=== PATIENT | male | born 1965 | race Caucasian/White ===

== ENCOUNTER 2018-11-03 18:54 | Emergency (ER) | payer SELFPAY ==
[~2018-11-03] VITALS: Ht 172.7 cm; Wt 99.8 kg
[2018-11-03] MEDS ORDERED: LISI-556 PO (19:07)
[2018-11-03] MEDS ORDERED: CARV6.252 PO (19:07)
[2018-11-03] MEDS ORDERED: RT-ALBUTEROL/IPRATROPIUM 3 ML (DUONEB) VIAL INH ONE (19:15)
[2018-11-03 19:41] LABS: BASOPHILS # (AUTO) 0.1 10^3/uL (0.0-0.1); BASOPHILS % (AUTO) 1 % (0-10); EOSINOPHILS # (AUTO) 0.3 10^3/uL (0.0-0.3); EOSINOPHILS % (AUTO) 4 % (0-10); HEMATOCRIT 39 % (40-54); HEMOGLOBIN 12.6 G/DL (13.3-17.7); LYMPHOCYTES # (AUTO) 1.6 X 10^3 (1.0-4.0); LYMPHOCYTES % (AUTO) 19 % (12-44); MEAN CORPUSCULAR HEMOGLOBIN 30 PG (25-34); MEAN CORPUSCULAR HGB CONC 33 G/DL (32-36); MEAN CORPUSCULAR VOLUME 93 FL (80-99); MEAN PLATELET VOLUME 9.9 FL (7.4-10.4); MONOCYTES # (AUTO) 0.6 X 10^3 (0.0-1.0); MONOCYTES % (AUTO) 7 % (0-12); NEUTROPHILS # (AUTO) 5.7 X 10^3 (1.8-7.8); NEUTROPHILS % (AUTO) 69 % (42-75); PLATELET COUNT 258 10^3/uL (130-400); RED CELL DISTRIBUTION WIDTH 16.2 % (10.0-14.5); WHITE BLOOD COUNT 8.2 10^3/uL (4.3-11.0)
--- NOTE | 2018-11-03 19:45 | Diagnostic Imaging Report ---
INDICATION: Dizziness, history of pneumonia. COMPARISON: I have no previous. FINDINGS: The heart is enlarged. There is vascular congestion. There is an at least small right-sided pleural effusion as well as findings suggestive of pulmonary edema bilaterally. The overall features suggest failure pattern, correlate clinically. IMPRESSION: Radiographic findings suggest failure pattern with edema, congestion and probable pleural effusion and cardiomegaly. Dictated by: Dictated on workstation # [id number]
[2018-11-03 20:04] LABS: ALBUMIN 3.9 GM/DL (3.2-4.5); BILIRUBIN,TOTAL 1.2 MG/DL (0.1-1.0); CALCIUM 9.4 MG/DL (8.5-10.1); CREATININE SERUM 1.38 MG/DL (0.60-1.30); TOTAL PROTEIN 6.3 GM/DL (6.4-8.2)
[2018-11-03 20:14] LABS: POTASSIUM 4.1 MMOL/L (3.6-5.0)
--- NOTE | 2018-11-03 20:16 | ED General ---
General Chief Complaint: Respiratory Problems Stated Complaint: SOB Nursing Triage Note: soa/cough Nursing Sepsis Screen: No Definite Risk Source of Information: Patient Exam Limitations: No Limitations History of Present Illness Date Seen by Provider: Nov 03, 2018 Time Seen by Provider: 19:00 Initial Comments This 52-year-old gentleman presents to the emergency room with complaint of progressive dyspnea on exertion over the past month. He reports having a bout of pneumonia and fluid collection in his right lung in August requiring admission at [facility] in [place]. He was treated for pneumonia and the chest tube was eventually removed. He improved after that admission until about one month ago. He uses an albuterol inhaler which helps his breathing somewhat. He reports having intermittent fever, weakness, cough, and shakiness over the last month. He has slight lower extremity edema. He has recently moved to [facility] from [place]. He has not yet established with a primary care provider. Allergies and Home Medications Allergies Coded Allergies: No Known Drug Allergies (Unverified , 11/03/18) Home Medications Carvedilol 6.25 Mg Tablet, Unknown Dose PO BID, (Reported) Lisinopril 5 Mg Tablet, Unknown Dose PO DAILY, (Reported) Patient Home Medication List Home Medication List Reviewed: Yes Review of Systems Review of Systems Constitutional: see HPI EENTM: no symptoms reported Respiratory: see HPI Cardiovascular: see HPI Gastrointestinal: no symptoms reported Genitourinary: no symptoms reported Musculoskeletal: no symptoms reported Skin: no symptoms reported Psychiatric/Neurological: No Symptoms Reported Hematologic/Lymphatic: No Symptoms Reported Past Ivotple-Qfjppk-Ueynmr Hx Past Med/Social Hx: Reviewed and Corrections made Patient Social History Alcohol Use: Denies Use Recreational Drug Use: Yes Drug of Choice: cannibus Smoking Status: Current Everyday Smoker Type Used: Cigarettes 2nd Hand Smoke Exposure: Yes Recent Foreign Travel: No Contact w/Someone Who Travel: No Recent Infectious Disease Expo: No Recent Hopitalizations: Yes (pneumonia) Immunizations Up To Date Tetanus Booster (TDap): Unknown Seasonal Allergies Seasonal Allergies: Yes Past Medical History Surgeries: Yes (chest tube, 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) Orthopedic Respiratory: Yes Pneumonia, COPD Cardiac: Yes (cardiomegaly) Hypertension Neurological: No Genitourinary: No Gastrointestinal: No Musculoskeletal: Yes Arthritis, Chronic Back Pain Endocrine: No HEENT: No 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 oz. 99.135457bs; BMI Method:Stated General Appearance: No Apparent Distress, WD/WN, Obese HEENT: PERRL/EOMI, Normal ENT Inspection Neck: Normal Inspection Respiratory: No Accessory Muscle Use, No Respiratory Distress; No Crackles; Wheezing Cardiovascular: Regular Rate, Rhythm, No Edema, No Murmur Gastrointestinal: Normal Bowel Sounds, Non Tender, Soft Extremity: Normal Inspection, Non Tender, Other (choice lower extremity edema) Neurologic/Psychiatric: Alert, Oriented x3, No Motor/Sensory Deficits, Normal Mood/Affect, box hinge and lock attacher II-XII Norm as Tested Skin: Normal Color, Warm/Dry Progress/Results/Core Measures Suspected Sepsis Recent Fever Within 48 Hours: No Infection Criteria Present: None New/Unexplained Altered Menta: No Sepsis Screen: No Definite Risk SIRS Temperature:98.5 Pulse: 96 Respiratory Rate: 18 Laboratory Tests 11/03/18 19:20: White Blood Count 8.2 Blood Pressure 176 /123 Mean: 140 Laboratory Tests 11/03/18 19:20: Creatinine 1.38H, Platelet Count 258, Total Bilirubin 1.2H Results/Orders Lab Results Laboratory Tests Test 11/03/18 19:20 11/03/18 21:38 Range/Units White Blood Count 8.2 4.3-11.0 10^3/uL Red Blood Count 4.19 L 4.35-5.85 10^6/uL Hemoglobin 12.6 L 13.3-17.7 G/DL Hematocrit 39 L 40-54 % Mean Corpuscular Volume 93 80-99 FL Mean Corpuscular Hemoglobin 30 25-34 PG Mean Corpuscular Hemoglobin Concent 33 32-36 G/DL Red Cell Distribution Width 16.2 H 10.0-14.5 % Platelet Count 258 130-400 10^3/uL Mean Platelet Volume 9.9 7.4-10.4 FL Neutrophils (%) (Auto) 69 42-75 % Lymphocytes (%) (Auto) 19 12-44 % Monocytes (%) (Auto) 7 0-12 % Eosinophils (%) (Auto) 4 0-10 % Basophils (%) (Auto) 1 0-10 % Neutrophils # (Auto) 5.7 1.8-7.8 X 10^3 Lymphocytes # (Auto) 1.6 1.0-4.0 X 10^3 Monocytes # (Auto) 0.6 0.0-1.0 X 10^3 Eosinophils # (Auto) 0.3 0.0-0.3 10^3/uL Basophils # (Auto) 0.1 0.0-0.1 10^3/uL D-Dimer 1.71 H 0.00-0.49 UG/ML Sodium Level 142 135-145 MMOL/L Potassium Level 4.1 3.6-5.0 MMOL/L Chloride Level 108 H 98-107 MMOL/L Carbon Dioxide Level 23 21-32 MMOL/L Anion Gap 11 5-14 MMOL/L Blood Urea Nitrogen 18 7-18 MG/DL Creatinine 1.38 H 0.60-1.30 MG/DL Estimat Glomerular Filtration Rate 55 BUN/Creatinine Ratio 13 Glucose Level 130 H 70-105 MG/DL Calcium Level 9.4 8.5-10.1 MG/DL Corrected Calcium 9.5 8.5-10.1 MG/DL Total Bilirubin 1.2 H 0.1-1.0 MG/DL Aspartate Amino Transf (AST/SGOT) 16 5-34 U/L Alanine Aminotransferase (ALT/SGPT) 34 0-55 U/L Alkaline Phosphatase 70 40-136 U/L Troponin I 0.052 H 0.034 H <0.028 NG/ML C-Reactive Protein High Sensitivity 2.72 H 0.00-0.50 MG/DL B-Type Natriuretic Peptide 34.1 <100.0 PG/ML Total Protein 6.3 L 6.4-8.2 GM/DL Albumin 3.9 3.2-4.5 GM/DL My Orders Orders - ELIANA QUEZADA MD BNP (11/03/18 19:10) Cbc With Automated Diff (11/03/18 19:10) Comprehensive Metabolic Panel (11/03/18 19:10) Hs C Reactive Protein (11/03/18 19:10) Chest Pa/Lat (2 View) (11/03/18 19:10) Albuterol/Ipra Inhalation Soln (Duoneb I (11/03/18 19:15) Svn Small Volume Nebulizer (11/03/18 19:10) Ekg Tracing (11/03/18 19:10) Troponin I (11/03/18 19:10) Ed Iv/Invasive Line Start (11/03/18 19:15) Fibrin Degradation Products (11/03/18 20:31) Ct Angio Chest W (11/03/18 21:33) Troponin I (11/03/18 21:35) Iohexol Injection (Omnipaque 350 Mg/Ml 1 (11/03/18 22:00) Received Contrast (Hold Metformin- Contr (11/03/18 22:00) Ns (Ivpb) (Sodium Chloride 0.9% Ivpb Bag (11/03/18 22:00) Medications Given in ED Current Medications Medications Dose Ordered Sig/Alejo Route Start Time Stop Time Status Last Admin Dose Admin Albuterol/ Ipratropium 3 ml ONCE ONCE INH 11/03/18 19:15 11/03/18 19:16 DC 11/03/18 19:20 3 ML Iohexol 150 ml ONCE ONCE IV 11/03/18 22:00 11/03/18 22:01 DC 11/03/18 21:48 125 ML Sodium Chloride 100 ml ONCE ONCE IV 11/03/18 22:00 11/03/18 22:01 DC 11/03/18 21:49 80 ML Vital Signs/I&O 11/03/18 11/03/18 11/03/18 18:57 19:19 22:51 Temp 98.5 98.1 Pulse 96 89 Resp 18 16 B/P (MAP) 176/123 (140) 167/113 (131) Pulse Ox 97 95 93 O2 Delivery Room Air Room Air Room Air Capillary Refill : Less Than 3 Seconds Blood Pressure Mean: 140 Progress Note : Progress Note DuoNeb treatment improved his wheezing. Pulmonary congestion/edema was suggested on the chest x-ray. However, this did not correlate with labs. I discussed the case with Dr. Walker. Given the patient's history of cancer and fluid collection in the right lung, he recommends CT abdomen and consideration for admission to have bronchoscopy and further workup. CT of the chest was obtained. This was done with angiography as patient had an elevated d-dimer. CT was abnormal and suggested edema. Again, this does not correlate with labs. I believe further consultation is needed with pulmonology. I discussed admission with Dr. Nath. Since vital signs are not unstable, she was reluct ant to admit and advised outpatient follow-up. Patient was given contact information for Dr. Walker and Dr. Vanegas to follow-up. A copy of this note will be sent to their offices. Troponin was measurable but below the critical cut off. A repeat troponin was performed and a declining value was noted. Patient denied any chest pain at any time. ECG Initial ECG Impression Date: Nov 03, 2018 Initial ECG Impression Time: 19:18 Initial ECG Rate: 88 Initial ECG Rhythm: Normal Sinus Comment Sinus rhythm with no ST elevation or depression. Nonspecific T-wave changes. There was first-degree AV block. No abnormal intervals or axis deviation. Diagnostic Imaging Diagonstic Imaging: Xray Plain Films/CT/US/NM/MRI: chest Comments Chest x-ray viewed by me and report reviewed. See report below: NAME: Eliu GRAY [facility] REC#: [id number] PT STATUS: REG ER : 1965 PHYSICIAN: ELIANA QUEZADA MD ADMIT DATE: 11/03/18/ER Signed Date of Exam:11/03/18 CHEST PA/LAT (2 VIEW) INDICATION: Dizziness, history of pneumonia. COMPARISON: I have no previous. FINDINGS: The heart is enlarged. There is vascular congestion. There is an at least small right-sided pleural effusion as well as findings suggestive of pulmonary edema bilaterally. The overall features suggest failure pattern, correlate clinically. IMPRESSION: Radiographic findings suggest failure pattern with edema, congestion and probable pleural effusion and cardiomegaly. Dictated by: Dictated on workstation # [id number] Dict: 11/03/181938 Trans: 11/03/181947 [id number] Interpreted by: STERLING SÁNCHEZ Electronically signed by: STERLING SÁNCHEZ 11/03/181947 Diagonstic Imaging: CT Plain Films/CT/US/NM/MRI: chest Comments CT chest viewed by me and [facility] report reviewed. CT was negative for PE. Findings were consistent with mild congestive failure and pulmonary edema. There was intermittent mediastinal and hilar lymphadenopathy. Bilateral partially loculated pleural effusion was greater on the right than left. Departure Impression Primary Impression: Dyspnea on exertion Additional Impressions: COPD (chronic obstructive pulmonary disease) Qualified Codes: J44.9 - Chronic obstructive pulmonary disease, unspecified Abnormal CT scan, chest Hypertension Qualified Codes: I10 - Essential (primary) hypertension Disposition: HOME, SELF-CARE Condition: Improved Departure-Patient Inst. Decision time for Depature: 22:43 Referrals: OMA VANEGAS RICHARD A DO MARJI, BASHAR J MD NO,LOCAL PHYSICIAN (PCP) Primary Care Physician Patient Instructions: COPD Including Emphysema (DC), High Blood Pressure in Adults Add. Discharge Instructions: Work toward quitting smoking. You may use nicotine replacement such as patches, lozenges, or gum. Do not use any vaping products. Follow-up with Romina Barrientos, and Dr. Mast as soon as possible. Please call their offices tomorrow to arrange follow-up. You may double your lisinopril to help control your blood pressure if it remains high. Drink plenty of clear liquids. Return to the ER if you have worsening symptoms. Obtain medical records from [facility] or have them faxed to your follow-up providers. Please do so soon as possible to help facilitate your care in [place]. Continue to use your albuterol inhaler as prescribed for shortness of breath and wheezing. All discharge instructions reviewed with patient and/or family. Voiced understanding. Copy Copies To 1: OMA VANEGAS DO Copies To 2: THEODORE WALKER MD, JOSHUA T MD Nov 03, 2018 20:16
[2018-11-03] MEDS ORDERED: IOHEXOL 350 MG/ML 150 ML (OMNIPAQUE 350) VIAL IV ONE (22:00)
[2018-11-03] MEDS ORDERED: NS 100 ML (IVPB) BAG IV ONE (22:00)
[2018-11-03] MEDS ORDERED: HOLD METFORMIN - RECEIVED CONTRAST 20 ML VIAL IV SCH (22:00)
[2018-11-03 22:51] VITALS: BP 167/113
--- NOTE | 2018-11-04 06:48 | Diagnostic Imaging Report ---
PROCEDURE: CT angiography of the chest with contrast. TECHNIQUE: Multiple contiguous axial images were obtained through the chest after uneventful bolus administration of intravenous contrast. 2D reconstructed CTA MIP acquisitions were also performed. Auto Exposure Controls were utilized during the CT exam to meet ALARA standards for radiation dose reduction. INDICATION: Worsening shortness breath over 3 weeks There is right pleural thickening. There is bilateral hilar lymphadenopathy. There is some adenopathy in the AP window of the mediastinum. There are no pulmonary emboli. Aorta is unremarkable. There is minimal basilar infiltrate or edema. IMPRESSION: There is no evidence for pulmonary embolism. There is abnormal thickening of the pleura on the right which is partially due to an effusion but pathologic thickening of the pleura cannot be excluded. There's also some hilar and mediastinal lymphadenopathy. I agree with preliminary interpretation. Dictated by: Dictated on workstation # [id number]
== END 2018-11-03 22:54 | disposition home or self-care (01) ==
LOC: EDUNIT# 18:54 → ER 18:55
DX: J44.9 Chronic obstructive pulmonary disease, unspecified (principal); I10 Essential (primary) hypertension; R91.8 Other nonspecific abnormal finding of lung field; F41.9 Anxiety disorder, unspecified; F43.10 Post-traumatic stress disorder, unspecified; I51.7 Cardiomegaly; F12.10 Cannabis abuse, uncomplicated; F17.210 Nicotine dependence, cigarettes, uncomplicated; Z87.01 Personal history of pneumonia (recurrent); Z85.819 Personal history of malignant neoplasm of unspecified site of lip, oral cavity, and pharynx
CPT/HCPCS: 36415; 71046; 71275; 80053; 83880; 84484; 85025; 85379; 86141; 93005; 94640

== ENCOUNTER 2018-11-15 11:50 | Emergency (ER) | payer SELFPAY ==
[~2018-11-15] VITALS: Ht 172.7 cm; Wt 113.4 kg
[~2018-11-15 11:50] MED LIST: CARV6.252 PO; LISI-556 PO
--- NOTE | 2018-11-15 12:15 | NUR ---
to rm at 1208
--- OUTSIDE RECORDS SUMMARY | 2018-11-15 12:49 | XMS REPORT | Continuity of Care Document ---
Author Organization Unknown Address Unknown Allergies There is no data. Medications There is no data. Problems There is no data. Procedures There is no data. Results There is no data. Encounters ACCT No. Visit Date/Time Discharge Status Pt. Type Provider Facility Loc./Unit Complaint [id number] 11/09/2018 12:20:00 11/09/2018 23:59:59 CLS Outpatient [facility]
--- NOTE | 2018-11-15 12:55 | ED Respiratory ---
General Chief Complaint: Respiratory Problems Stated Complaint: SOA Nursing Triage Note: PT HAS HISTORY OF CHF AND COPD. PT IS NON COMPLIANT WITH MEDICATIONS. PT SMOKES DAILY. PT IS TO SEE HIS PCP ON THURSDAY. PT HAS NOT BEEN ON LASIX OR HIGH BLOOD PRESSURE MEDICATION. PT STATES HE ALSO USES WEED, HE HAD AN EDIBLE 4 DAYS AGO. RESPIRATIONS EVEN AND LABORED. PT 97% ON ROOM AIR AND IS ABLE TO TALK IN FULL COMPLETE SENTANCES WITHOUT DIFFICULTY. PT STATES BILATERAL LEG SWELLING. History of Present Illness Date Seen by Provider: Nov 15, 2018 Time Seen by Provider: 12:40 Initial Comments 52-year-old male presents for swelling bilateral lower extremities. He states that he has been sitting with his legs dangling for several hours. He also has not been taking his lisinopril with HCTZ. He did get a new prescription is to pick it up at [facility] after this visit. Eyes any shortness of air, change in his productive cough, chest pain or dyspnea. He states that he is noncompliant with his treatment but he is trying to do better. He is scheduled to see his PCP in 2 days. Timing/Duration: this morning Prior Episodes/Possible Cause: frequent episodes Associated Symptoms: No chest pain/soreness; cough (no change in chronic,); No fever/chills, No headache, No lightheadedness, No muscle aches, No nasal congestion, No nasal drainage, No shortness of breath, No sinus infection, No sore throat, No wheezing Allergies and Home Medications Allergies Coded Allergies: No Known Drug Allergies (Unverified , 11/03/18) Home Medications Carvedilol 6.25 Mg Tablet, Unknown Dose PO BID, (Reported) Lisinopril 5 Mg Tablet, Unknown Dose PO DAILY, (Reported) Patient Home Medication List Home Medication List Reviewed: Yes Review of Systems Review of Systems Constitutional: no symptoms reported, see HPI Skin: see HPI, other (swelling bilateral lower extremities, without calf or leg pain. No reported injuries) All Other Systems Reviewed Negative Unless Noted: Yes Past Nkmuzpq-Ebbhad-Rhcagc Hx Past Med/Social Hx: Reviewed Nursing Past Med/Soc Hx Patient Social History Alcohol Use: Denies Use Recreational Drug Use: Yes Drug of Choice: cannibus Smoking Status: Current Everyday Smoker Type Used: Cigarettes 2nd Hand Smoke Exposure: Yes Recent Foreign Travel: No Contact w/Someone Who Travel: No Recent Infectious Disease Expo: No Recent Hopitalizations: Yes (pneumonia 08/2018) Immunizations Up To Date Tetanus Booster (TDap): Unknown Seasonal Allergies Seasonal Allergies: Yes Past Medical History Surgeries: Yes (chest tube, 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) Orthopedic Respiratory: Yes Pneumonia, COPD Cardiac: Yes (cardiomegaly) Hypertension Neurological: No Genitourinary: No Gastrointestinal: No Musculoskeletal: Yes Arthritis, Chronic Back Pain Endocrine: No HEENT: No 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 oz. 113.267479wt; BMI Method:Stated General Appearance: WD/WN, no apparent distress HEENT: PERRL/EOMI, normal ENT inspection, TMs normal, pharynx normal Neck: non-tender, full range of motion, supple, normal inspection Respiratory: chest non-tender, lungs clear, normal breath sounds, no respiratory distress; No wheezing Cardiovascular: normal peripheral pulses, regular rate, rhythm, no murmur Gastrointestinal: normal bowel sounds, non tender, soft Extremities: normal range of motion, non-tender, normal capillary refill, pedal edema (2+); No slow capillary refill; other Neurologic/Psychiatric: no motor/sensory deficits, alert, normal mood/affect, oriented x 3 Skin: normal color, warm/dry Lymphatic: no adenopathy Progress/Results/Core Measures Suspected Sepsis Recent Fever Within 48 Hours: No Infection Criteria Present: None New/Unexplained Altered Menta: No Sepsis Screen: No Definite Risk SIRS Temperature:98.2 Pulse: 102 Respiratory Rate: 18 Blood Pressure 167 /129 Mean: 142 Results/Orders My Orders Orders - LYLE DHALIWAL Furosemide Tablet (Lasix Tablet) (11/15/18 13:00) Lisinopril Tablet (Zestril Tablet) (11/15/18 13:00) Medications Given in ED Current Medications Medications Dose Ordered Sig/Alejo Route Start Time Stop Time Status Last Admin Dose Admin Furosemide 40 mg ONCE ONCE PO 11/15/18 13:00 11/15/18 13:04 DC 11/15/18 13:13 40 MG Lisinopril 20 mg ONCE ONCE PO 11/15/18 13:00 11/15/18 13:04 DC 11/15/18 13:14 20 MG Vital Signs/I&O 11/15/18 11/15/18 11:54 13:04 Temp 98.2 98.2 Pulse 102 91 Resp 18 18 B/P (MAP) 167/129 (142) 164/119 (134) Pulse Ox 98 94 O2 Delivery Room Air Room Air Capillary Refill : Less Than 3 Seconds Blood Pressure Mean: 142 Progress Note : Time: 12:40 Progress Note Patient seen and evaluated, recommended giving his lisinopril and Lasix. He is to follow-up with his PCP and obtain his prescriptions from his pharmacy. Discharge instructions and return precautions reviewed with the patient. All questions answered. Departure Impression Primary Impression: Hypertension Qualified Codes: I10 - Essential (primary) hypertension Additional Impressions: Noncompliance COPD (chronic obstructive pulmonary disease) Qualified Codes: J44.9 - Chronic obstructive pulmonary disease, unspecified Disposition: 01 HOME, SELF-CARE Condition: Improved Departure-Patient Inst. Decision time for Depature: 12:55 Referrals: NO,LOCAL PHYSICIAN (PCP/Family) Primary Care Physician Patient Instructions: High Blood Pressure (DC) Add. Discharge Instructions: Keep your scheduled appointments with your primary care provider and specialist. Take medications as ordered. Elevate your legs higher than your heart. Continue to use your inhaler every 4 hours. Return to emergency department for new, urgent health care needs. All discharge instructions reviewed with patient and/or family. Voiced understanding. Copy Copies To 1: OMA DANIEL AMY ARNP Nov 15, 2018 12:55
[2018-11-15] MEDS ORDERED: lisINopril 20 MG (PRINIVIL) TABLET PO ONE (13:00)
[2018-11-15] MEDS ORDERED: FUROSEMIDE 40 MG (LASIX) TAB PO ONE (13:00)
[2018-11-15 13:04] VITALS: BP 164/119
== END 2018-11-15 13:04 ==
LOC: EDUNIT# 11:50 → ER 11:51
DX: J44.9 Chronic obstructive pulmonary disease, unspecified (principal); I10 Essential (primary) hypertension; F41.9 Anxiety disorder, unspecified; F32.9 Major depressive disorder, single episode, unspecified; F12.10 Cannabis abuse, uncomplicated; F17.210 Nicotine dependence, cigarettes, uncomplicated; Z87.01 Personal history of pneumonia (recurrent); Z85.828 Personal history of other malignant neoplasm of skin; Z91.14 Patient's other noncompliance with medication regimen
CPT/HCPCS: 99283

== ENCOUNTER 2019-01-08 15:32 | Emergency (ER) | payer MEDICAID ==
[~2019-01-08] VITALS: Ht 172.7 cm; Wt 99.8 kg
[2019-01-08] MEDS ORDERED: fentaNYL INJECTION 100 MCG/2 ML AMP IVP ONE (16:00)
[2019-01-08] MEDS ORDERED: NS IV 1000 ML 1,000 ML IV SCH (16:00)
[2019-01-08] MEDS ORDERED: ENOXAPARIN 100 MG/1 ML (LOVENOX) SYR SC ONE (16:00)
--- NOTE | 2019-01-08 16:06 | ED Lower Extremity ---
General Chief Complaint: Lower Extremity Stated Complaint: L LEG PAIN,PURPLE,POSS BLOOD CLOT Nursing Triage Note: PT TO ED W/ C/O LLE PAIN FROM HIP TO FOOT ONSET TODAY. REPORTS CHANGE OR COLOR TO EXTREMITY, NUMBNESS ET PAIN. DENIES INJURY OR HX OF BLOOD CLOTS TO THIS RN Nursing Sepsis Screen: No Definite Risk Source: patient, family Exam Limitations: no limitations History of Present Illness Date Seen by Provider: Jan 08, 2019 Time Seen by Provider: 16:02 Initial Comments This 53-year-old white male presents with an apparent blood clot to his left leg. Patient noted aching in his left leg from his hip to his foot this morning with associated cyanosis and symptoms of claudication. Patient and his experience paresthesias in the left leg as well. Patient denies similar symptoms in the past. Patient denies shortness of breath or chest pain. Onset: this morning Severity: moderate Pain/Injury Location: left hip, left leg, left knee, left thigh, left foot, left ankle Allergies and Home Medications Allergies Coded Allergies: No Known Drug Allergies (Unverified , 11/03/18) Home Medications Carvedilol 6.25 Mg Tablet, Unknown Dose PO BID, (Reported) Lisinopril 5 Mg Tablet, Unknown Dose PO DAILY, (Reported) Patient Home Medication List Home Medication List Reviewed: Yes Review of Systems Constitutional: No chills, No fever, No weakness EENTM: No hearing loss Respiratory: No cough, No short of breath Cardiovascular: No chest pain Gastrointestinal: No abdominal pain, No melena, No nausea, No vomiting Genitourinary: no symptoms reported; No decreased output, No dysuria, No frequency Musculoskeletal: no symptoms reported; No back pain, No joint pain Skin: see HPI (cyanosis right lower extremity), change in color, other Psychiatric/Neurological: No Symptoms Reported Past Sycbjtj-Tzpaau-Whdqlc Hx Past Med/Social Hx: Reviewed Nursing Past Med/Soc Hx Patient Social History Alcohol Use: Denies Use Recreational Drug Use: Yes Drug of Choice: MARIJUANA Smoking Status: Current Everyday Smoker Type Used: Cigarettes 2nd Hand Smoke Exposure: Yes Recent Foreign Travel: No Contact w/Someone Who Travel: No Recent Infectious Disease Expo: No Recent Hopitalizations: Yes (pneumonia 08/2018) Immunizations Up To Date Tetanus Booster (TDap): Unknown Seasonal Allergies Seasonal Allergies: Yes Past Medical History Surgeries: Yes (chest tube, 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) Orthopedic Respiratory: Yes Pneumonia, COPD Cardiac: Yes (cardiomegaly) Hypertension Neurological: No Genitourinary: No Gastrointestinal: No Musculoskeletal: Yes Arthritis, Chronic Back Pain Endocrine: No HEENT: No 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 oz. 99.849435gb; BMI Method:Stated General Appearance: WD/WN, mild distress HEENT: normal ENT inspection Neck: full range of motion, normal inspection Cardiovascular: regular rate, rhythm, no murmur Respiratory: chest non-tender, lungs clear, normal breath sounds Gastrointestinal: normal bowel sounds Back: normal inspection Hips: left hip other (cyanosis is present from the left hip to the toes of the left foot. There is associated moderate soft tissue swelling.) Neurologic/Tendon: normal sensation, normal motor functions, normal tendon functions Neurologic/Psychiatric: no motor/sensory deficits, normal mood/affect Skin: cyanosis (of the entire left lower extremity.), other Progress/Results/Core Measures Results/Orders Lab Results Laboratory Tests Test 01/08/19 16:05 Range/Units White Blood Count 10.9 4.3-11.0 10^3/uL Red Blood Count 6.00 H 4.35-5.85 10^6/uL Hemoglobin 18.2 H 13.3-17.7 G/DL Hematocrit 54 40-54 % Mean Corpuscular Volume 90 80-99 FL Mean Corpuscular Hemoglobin 30 25-34 PG Mean Corpuscular Hemoglobin Concent 34 32-36 G/DL Red Cell Distribution Width 14.4 10.0-14.5 % Platelet Count 180 130-400 10^3/uL Mean Platelet Volume 10.8 H 7.4-10.4 FL Neutrophils (%) (Auto) 74 42-75 % Lymphocytes (%) (Auto) 15 12-44 % Monocytes (%) (Auto) 9 0-12 % Eosinophils (%) (Auto) 2 0-10 % Basophils (%) (Auto) 1 0-10 % Neutrophils # (Auto) 8.0 H 1.8-7.8 X 10^3 Lymphocytes # (Auto) 1.6 1.0-4.0 X 10^3 Monocytes # (Auto) 0.9 0.0-1.0 X 10^3 Eosinophils # (Auto) 0.2 0.0-0.3 10^3/uL Basophils # (Auto) 0.1 0.0-0.1 10^3/uL Sodium Level 139 135-145 MMOL/L Potassium Level 4.1 3.6-5.0 MMOL/L Chloride Level 105 98-107 MMOL/L Carbon Dioxide Level 21 21-32 MMOL/L Anion Gap 13 5-14 MMOL/L Blood Urea Nitrogen 20 H 7-18 MG/DL Creatinine 1.32 H 0.60-1.30 MG/DL Estimat Glomerular Filtration Rate 57 BUN/Creatinine Ratio 15 Glucose Level 156 H 70-105 MG/DL Calcium Level 9.6 8.5-10.1 MG/DL Corrected Calcium 9.2 8.5-10.1 MG/DL Total Bilirubin 0.7 0.1-1.0 MG/DL Aspartate Amino Transf (AST/SGOT) 21 5-34 U/L Alanine Aminotransferase (ALT/SGPT) 28 0-55 U/L Alkaline Phosphatase 68 40-136 U/L Total Protein 7.6 6.4-8.2 GM/DL Albumin 4.5 3.2-4.5 GM/DL My Orders Orders - BERENICE LIAO MD Enoxaparin Injection (Lovenox Injection) (01/08/19 16:00) Protime With Inr (01/08/19 15:59) Cbc With Automated Diff (01/08/19 15:59) Comprehensive Metabolic Panel (01/08/19 15:59) Ns Iv 1000 Ml (Sodium Chloride 0.9%) (01/08/19 16:00) Ekg Tracing (01/08/19 16:00) Chest 1 View, Ap/Pa Only (01/08/19 16:00) Fentanyl Injection (Sublimaze Injection (01/08/19 16:00) Hydromorphone Injection (Dilaudid Inject (01/08/19 16:45) Medications Given in ED Current Medications Medications Dose Ordered Sig/Alejo Route Start Time Stop Time Status Last Admin Dose Admin Enoxaparin Sodium 100 mg ONCE ONCE SC 01/08/19 16:00 01/08/19 16:01 DC 01/08/19 16:16 100 MG Fentanyl Citrate 100 mcg ONCE ONCE IVP 01/08/19 16:00 01/08/19 16:02 DC 01/08/19 16:16 100 MCG Hydromorphone HCl 1 mg ONCE ONCE IVP 01/08/19 16:45 01/08/19 16:46 DC 01/08/19 16:39 1 MG Vital Signs/I&O 01/08/19 15:35 Temp 100.0 Pulse 85 Resp 22 B/P (MAP) 120/79 (93) Pulse Ox 94 O2 Delivery Room Air Blood Pressure Mean: 93 Progress Progress Note : Time: 16:12 Progress Note There is cyanosis and swelling to the left lower extremity from the hip to the foot. Laboratory evaluation, chest x-ray, and EKG were ordered. Patient received 100 mg of Lovenox subcutaneous. The patient would like to be transferred to [facility] for his ultrasound (ultrasound unavailable at [facility] [place]). I placed a call to [facility] to discuss the patient's presentation and asked further help. Patient has a good posterior tibial pulse in his left lower extremity. I cannot find a dorsalis pedis pulse in the left or the right foot. Dr. Hall at [facility] was kind enough to accept the patient in transfer to the emergency department. 100 g of fentanyl did not provide the patient with any significant pain relief. 1 mg of Dilaudid IV was given to the patient with improvement in his pain. Departure Impression Primary Impression: Thrombophlebitis of left leg Disposition: XFER SHT-TRM HOSP Condition: Improved Transfer Time Spoke to Accepting Phy: 16:[address] Hall at [facility] (ED) Transfer Time: 16:56 Transfer Facility: [facility] Method of Transfer: EMS Departure-Patient Inst. Referrals: ELIZABETH DEGROOT (PCP/Family) Primary Care Physician BERENICE LIAO MD Jan 08, 2019 16:06
[2019-01-08 16:13] LABS: BASOPHILS # (AUTO) 0.1 10^3/uL (0.0-0.1); BASOPHILS % (AUTO) 1 % (0-10); EOSINOPHILS # (AUTO) 0.2 10^3/uL (0.0-0.3); EOSINOPHILS % (AUTO) 2 % (0-10); HEMATOCRIT 54 % (40-54); HEMOGLOBIN 18.2 G/DL (13.3-17.7); LYMPHOCYTES # (AUTO) 1.6 X 10^3 (1.0-4.0); LYMPHOCYTES % (AUTO) 15 % (12-44); MEAN CORPUSCULAR HEMOGLOBIN 30 PG (25-34); MEAN CORPUSCULAR HGB CONC 34 G/DL (32-36); MEAN CORPUSCULAR VOLUME 90 FL (80-99); MEAN PLATELET VOLUME 10.8 FL (7.4-10.4); MONOCYTES # (AUTO) 0.9 X 10^3 (0.0-1.0); MONOCYTES % (AUTO) 9 % (0-12); NEUTROPHILS % (AUTO) 74 % (42-75); PLATELET COUNT 180 10^3/uL (130-400); RED CELL DISTRIBUTION WIDTH 14.4 % (10.0-14.5); WHITE BLOOD COUNT 10.9 10^3/uL (4.3-11.0)
[2019-01-08 16:30] LABS: ALBUMIN 4.5 GM/DL (3.2-4.5); BILIRUBIN,TOTAL 0.7 MG/DL (0.1-1.0); CALCIUM 9.6 MG/DL (8.5-10.1); CREATININE SERUM 1.32 MG/DL (0.60-1.30); POTASSIUM 4.1 MMOL/L (3.6-5.0); TOTAL PROTEIN 7.6 GM/DL (6.4-8.2)
--- NOTE | 2019-01-08 16:38 | Diagnostic Imaging Report ---
INDICATION: Left leg redness, tingling. FINDINGS: The lungs are clear. The heart size measured within normal limits. There is no effusion or pneumothorax. IMPRESSION: No acute-appearing abnormality. Dictated by: Dictated on workstation # [id number]
[2019-01-08] MEDS ORDERED: HYDROmorphone 2 MG/ML VIAL (DILAUDID) IVP ONE ×2 (16:45→18:00)
[2019-01-08 16:59] LABS: INR 0.9 (0.8-1.4); PROTHROMBIN TIME PATIENT 12.9 SEC (12.2-14.7)
[2019-01-08 18:10] VITALS: BP 118/88
== END 2019-01-08 18:10 | disposition short-term general hospital (02) ==
LOC: EDUNIT# 15:32 → ER 15:34
DX: I80.3 Phlebitis and thrombophlebitis of lower extremities, unspecified (principal); I51.7 Cardiomegaly; I10 Essential (primary) hypertension; F41.9 Anxiety disorder, unspecified; F43.10 Post-traumatic stress disorder, unspecified; J44.9 Chronic obstructive pulmonary disease, unspecified; F17.210 Nicotine dependence, cigarettes, uncomplicated; Z87.01 Personal history of pneumonia (recurrent); Z85.828 Personal history of other malignant neoplasm of skin
CPT/HCPCS: 36415; 71045; 80053; 85025; 85610; 93005; 96361; 96372; 96374; 96375; 96376

== ENCOUNTER 2019-01-25 18:01 | Emergency (ER) | payer MEDICAID ==
[~2019-01-25] VITALS: Ht 172.7 cm; Wt 108.9 kg
--- NOTE | 2019-01-25 18:30 | NUR ---
CANDIDO LEG SWELLING NOTED.
[2019-01-25] MEDS ORDERED: APIX5TAB (18:31)
[2019-01-25 18:52] LABS: BASOPHILS # (AUTO) 0.1 10^3/uL (0.0-0.1); BASOPHILS % (AUTO) 1 % (0-10); EOSINOPHILS # (AUTO) 0.2 10^3/uL (0.0-0.3); EOSINOPHILS % (AUTO) 2 % (0-10); HEMATOCRIT 52 % (40-54); HEMOGLOBIN 17.7 G/DL (13.3-17.7); LYMPHOCYTES # (AUTO) 2.2 X 10^3 (1.0-4.0); LYMPHOCYTES % (AUTO) 28 % (12-44); MEAN CORPUSCULAR HEMOGLOBIN 30 PG (25-34); MEAN CORPUSCULAR HGB CONC 34 G/DL (32-36); MEAN CORPUSCULAR VOLUME 88 FL (80-99); MEAN PLATELET VOLUME 9.8 FL (7.4-10.4); MONOCYTES % (AUTO) 12 % (0-12); NEUTROPHILS # (AUTO) 4.6 X 10^3 (1.8-7.8); NEUTROPHILS % (AUTO) 57 % (42-75); PLATELET COUNT 262 10^3/uL (130-400); RED CELL DISTRIBUTION WIDTH 14.9 % (10.0-14.5)
--- NOTE | 2019-01-25 18:53 | ED Lower Extremity ---
General Chief Complaint: Lower Extremity Stated Complaint: LEFT LEG PAIN Nursing Triage Note: had leg stents placed 3 weeks ago et has had pain since but today the pain is significantly worse and it is going numb. Nursing Sepsis Screen: No Definite Risk Source: patient Exam Limitations: no limitations History of Present Illness Date Seen by Provider: Jan 25, 2019 Time Seen by Provider: 18:49 Initial Comments To ER per private vehicle with left groin pain and numbness in the leg in the region of the groin. He's had some pain since he had stents placed in the left leg 3 weeks ago, today the pain seems worse. No fevers or chills, states he's been compliant with taking his Eliquis. Stents were placed by Dr. Brandon at [facility] in [place]. Patient is not sure where they were placed in the left leg. Onset: just prior to arrival Severity: moderate Pain/Injury Location: left leg Method of Injury: fell Modifying Factors: Worse With Movement Allergies and Home Medications Allergies Coded Allergies: No Known Drug Allergies (Unverified , 11/03/18) Home Medications Carvedilol 6.25 Mg Tablet, Unknown Dose PO BID, (Reported) Lisinopril 5 Mg Tablet, Unknown Dose PO DAILY, (Reported) Patient Home Medication List Home Medication List Reviewed: Yes Review of Systems Constitutional: see HPI EENTM: see HPI Respiratory: no symptoms reported Cardiovascular: no symptoms reported Genitourinary: no symptoms reported Musculoskeletal: see HPI Skin: no symptoms reported Psychiatric/Neurological: No Symptoms Reported Past Otxifjt-Ryfrdn-Kkjcoq Hx Patient Social History Alcohol Use: Denies Use Recreational Drug Use: No Drug of Choice: MARIJUANA Smoking Status: Current Everyday Smoker Type Used: Cigarettes 2nd Hand Smoke Exposure: Yes Recent Foreign Travel: No Contact w/Someone Who Travel: No Recent Infectious Disease Expo: No Recent Hopitalizations: Yes (pneumonia 08/2018) Immunizations Up To Date Tetanus Booster (TDap): Unknown Seasonal Allergies Seasonal Allergies: Yes Past Medical History Surgeries: Yes (chest tube, 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) Orthopedic Respiratory: Yes Pneumonia, COPD Cardiac: Yes (cardiomegaly) Hypertension Neurological: No Genitourinary: No Gastrointestinal: No Musculoskeletal: Yes Arthritis, Chronic Back Pain Endocrine: No HEENT: No 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 oz. 108.288611wk; BMI Method:Stated General Appearance: WD/WN, no apparent distress HEENT: PERRL/EOMI, normal ENT inspection Respiratory: no respiratory distress, no accessory muscle use Hips: bilateral hip non-tender, bilateral hip normal inspection, bilateral hip normal range of motion Legs: bilateral leg non-tender, bilateral leg normal inspection, bilateral leg normal range of motion Knees: bilateral knee non-tender, bilateral knee normal inspection, bilateral knee normal range of motion Ankles: bilateral ankle non-tender, bilateral ankle normal inspection, bilateral ankle normal range of motion Feet: bilateral foot non-tender, bilateral foot normal inspection, bilateral foot normal range of motion Neurologic/Psychiatric: alert, normal mood/affect, oriented x 3 Skin: normal color, warm/dry Both feet/toes are warm, symmetric in both appearance and temperature. Both lower extremities are slightly erythematous at the ankles without swelling, no cyanosis, a brisk capillary refill a each great toe of 1-2seconds. I am able to palpate a dorsalis pedis pulse on the right, not on the left. However I am able to Doppler a blood flow on the left in the dorsalis pedis artery. He has no pain in the foot. He has a palpable posterior tibial pulses bilaterally. There are 2 puncture wounds healed with overlying eschar to the popliteal region of the left leg from procedure at [facility]. Progress/Results/Core Measures Results/Orders Lab Results Laboratory Tests Test 01/25/19 18:46 Range/Units White Blood Count 8.0 4.3-11.0 10^3/uL Red Blood Count 5.93 H 4.35-5.85 10^6/uL Hemoglobin 17.7 13.3-17.7 G/DL Hematocrit 52 40-54 % Mean Corpuscular Volume 88 80-99 FL Mean Corpuscular Hemoglobin 30 25-34 PG Mean Corpuscular Hemoglobin Concent 34 32-36 G/DL Red Cell Distribution Width 14.9 H 10.0-14.5 % Platelet Count 262 130-400 10^3/uL Mean Platelet Volume 9.8 7.4-10.4 FL Neutrophils (%) (Auto) 57 42-75 % Lymphocytes (%) (Auto) 28 12-44 % Monocytes (%) (Auto) 12 0-12 % Eosinophils (%) (Auto) 2 0-10 % Basophils (%) (Auto) 1 0-10 % Neutrophils # (Auto) 4.6 1.8-7.8 X 10^3 Lymphocytes # (Auto) 2.2 1.0-4.0 X 10^3 Monocytes # (Auto) 1.0 0.0-1.0 X 10^3 Eosinophils # (Auto) 0.2 0.0-0.3 10^3/uL Basophils # (Auto) 0.1 0.0-0.1 10^3/uL Sodium Level 139 135-145 MMOL/L Potassium Level 4.3 3.6-5.0 MMOL/L Chloride Level 103 98-107 MMOL/L Carbon Dioxide Level 26 21-32 MMOL/L Anion Gap 10 5-14 MMOL/L Blood Urea Nitrogen 22 H 7-18 MG/DL Creatinine 1.35 H 0.60-1.30 MG/DL Estimat Glomerular Filtration Rate 56 BUN/Creatinine Ratio 16 Glucose Level 109 H 70-105 MG/DL Calcium Level 9.8 8.5-10.1 MG/DL My Orders Orders - REGINALDO TIERNEY DENTAL CLAIMS PROCESSOR Cbc With Automated Diff (01/25/19 18:36) Basic Metabolic Panel (01/25/19 18:36) Cta Aorta W Candido Runoff W/Wo (01/25/19 18:36) Hydromorphone Injection (Dilaudid Inject (01/25/19 19:00) Ns Iv 1000 Ml (Sodium Chloride 0.9%) (01/25/19 19:15) Iohexol Injection (Omnipaque 350 Mg/Ml 1 (01/25/19 19:30) Received Contrast (Hold Metformin- Contr (01/25/19 19:30) Sodium Chloride Flush (Catheter Flush Sy (01/25/19 19:30) Ns (Ivpb) (Sodium Chloride 0.9% Ivpb Bag (01/25/19 19:30) Lactated Ringers (Lr 1000 Ml Iv Solution (01/25/19 19:30) Hydrocodone/Apap 5/325 Tablet (Lortab 5 (01/25/19 20:15) Fentanyl Injection (Sublimaze Injection (01/25/19 20:45) Medications Given in ED Current Medications Medications Dose Ordered Sig/Alejo Route Start Time Stop Time Status Last Admin Dose Admin Acetaminophen/ Hydrocodone Bitart 1 tab ONCE ONCE PO 01/25/19 20:15 01/25/19 20:16 DC 01/25/19 20:11 1 TAB Fentanyl Citrate 50 mcg ONCE ONCE IVP 01/25/19 20:45 01/25/19 20:46 01/25/19 20:39 50 MCG Hydromorphone HCl 1 mg ONCE ONCE IV 01/25/19 19:00 01/25/19 19:01 DC 01/25/19 18:52 1 MG Iohexol 150 ml ONCE ONCE IV 01/25/19 19:30 01/25/19 19:31 DC 01/25/19 19:49 150 ML Sodium Chloride 10 ml NEEDED PRN IV 01/25/19 19:30 01/25/19 19:49 10 ML Sodium Chloride 100 ml ONCE ONCE IV 01/25/19 19:30 01/25/19 19:31 DC 01/25/19 19:49 80 ML Vital Signs/I&O 01/25/19 18:11 B/P (MAP) O2 Delivery Room Air Diagnostic Imaging Diagonstic Imaging: CT Comments NAME: Eliu GRAY Estrellita SALINAS [employer] REC#: [id number] PT STATUS: REG ER : 1965 PHYSICIAN: REGINALDO TIERNEY DENTAL CLAIMS PROCESSOR ADMIT DATE: 01/25/19/ER Signed Date of Exam:01/25/19 CTA AORTA W CANDIDO RUNOFF W/WO INDICATION: Blood clots in the legs 3 weeks ago. TECHNIQUE: Images through the aorta, pelvis and lower extremities were obtained. MIP projections were made for the CT angiography. FINDINGS: The abdominal aorta is widely patent with no aneurysm. The celiac axis and SMA are widely patent as are the renal arteries. The PREMA is patent. Both iliac arteries are widely patent with no aneurysm, stenosis or dissection. The runoff study shows mild dilatation of the left common femoral artery which measures 2.3 cm. The superficial femoral arteries are widely patent bilaterally. There is aneurysmal dilatation of both popliteal arteries. The popliteal on the right measures 4 cm with a luminal diameter of 14 mm. The popliteal artery on the left measures 2.5 cm with a luminal diameter of 1.6 cm. There is mural thrombus present with no acute thrombus or dissection evident. There is poor opacification of the trifurcation vessels on the left which may be from timing of the runoff study rather than diffuse occlusive disease. The trifurcation vessels on the right are widely patent. There is an IVC filter present. 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 Popliteal arteries and the vessels proximal to this are widely patent. No thrombus is seen. There is poor visualization of the left trifurcation vessels which may be from slightly slower flow on the left than the right rather than thrombus. Dictated by: Dictated on workstation # [id number] Dict: 01/25/192024 Trans: 01/25/192035 [facility] [id number] Interpreted by: LAVELL ESCOBAR MD Electronically signed by: LAVELL ESCOBAR MD 01/25/192035 Departure Communication (Admissions) 2007-obtained records from [facility], patient was diagnosed with a deep vein thrombosis of the entire leg length common femoral vein to the per forating veins. Arterial ultrasound showed thrombus in the popliteal artery nonocclusive. This was treated with ultrasound guided left popliteal stick with insertion of she, AngioJet clot extraction and the TPA was delivered via pulse spray and TPA infusion overnight. The next day he was taken back for clot extraction. Impression Primary Impression: Left groin pain Additional Impression: recent left leg DVT Disposition: HOME, SELF-CARE Condition: Stable Departure-Patient Inst. Decision time for Depature: 20:43 Referrals: ELIZABETH DEGROOT (PCP/Family) Primary Care Physician Patient Instructions: NO INSTRUCTIONS GIVEN Add. Discharge Instructions: 1. Pain medication as directed 2. Return to ER for any bluish discoloration of the foot like he had the first time or any other concerns. You need to be reevaluated at [facility] tomorrow. If they're unable to get you an appointment, you may go to the walk-in clinic. REGINALDO TIERNEY APRN Jan 25, 2019 18:53
[2019-01-25] MEDS ORDERED: HYDROmorphone 2 MG/ML VIAL (DILAUDID) IV ONE (19:00)
[2019-01-25 19:07] LABS: CALCIUM 9.8 MG/DL (8.5-10.1); CREATININE SERUM 1.35 MG/DL (0.60-1.30); POTASSIUM 4.3 MMOL/L (3.6-5.0)
[2019-01-25] MEDS ORDERED: NS IV 1000 ML 1,000 ML IV SCH (19:15)
[2019-01-25] MEDS ORDERED: HOLD METFORMIN - RECEIVED CONTRAST 20 ML VIAL IV SCH (19:30)
[2019-01-25] MEDS ORDERED: LACTATED RINGERS 1,000 ML IV SCH (19:30)
[2019-01-25] MEDS ORDERED: NS 100 ML (IVPB) BAG IV ONE (19:30)
[2019-01-25] MEDS ORDERED: IOHEXOL 350 MG/ML 150 ML (OMNIPAQUE 350) VIAL IV ONE (19:30)
[2019-01-25] MEDS ORDERED: CATHETER FLUSH 10 ML SYR IV PRN (19:30)
[2019-01-25] MEDS ORDERED: HYDROcodone/APAP 5 MG/325 MG (LORTAB) TAB PO ONE (20:15)
--- NOTE | 2019-01-25 20:35 | Diagnostic Imaging Report ---
INDICATION: Blood clots in the legs 3 weeks ago. TECHNIQUE: Images through the aorta, pelvis and lower extremities were obtained. MIP projections were made for the CT angiography. FINDINGS: The abdominal aorta is widely patent with no aneurysm. The celiac axis and SMA are widely patent as are the renal arteries. The PREMA is patent. Both iliac arteries are widely patent with no aneurysm, stenosis or dissection. The runoff study shows mild dilatation of the left common femoral artery which measures 2.3 cm. The superficial femoral arteries are widely patent bilaterally. There is aneurysmal dilatation of both popliteal arteries. The popliteal on the right measures 4 cm with a luminal diameter of 14 mm. The popliteal artery on the left measures 2.5 cm with a luminal diameter of 1.6 cm. There is mural thrombus present with no acute thrombus or dissection evident. There is poor opacification of the trifurcation vessels on the left which may be from timing of the runoff study rather than diffuse occlusive disease. The trifurcation vessels on the right are widely patent. There is an IVC filter present. 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 Popliteal arteries and the vessels proximal to this are widely patent. No thrombus is seen. There is poor visualization of the left trifurcation vessels which may be from slightly slower flow on the left than the right rather than thrombus. Dictated by: Dictated on workstation # [id number]
[2019-01-25] MEDS ORDERED: fentaNYL INJECTION 100 MCG/2 ML AMP IVP ONE (20:45)
[2019-01-25] MEDS ORDERED: RX-OXYCODONE/APAP 5-325 MG #4 TAB PK PO PRN (20:45)
[2019-01-25 20:58] VITALS: BP 114/86
== END 2019-01-25 20:57 | disposition home or self-care (01) ==
LOC: EDUNIT# 18:01 → ER 18:02
DX: R10.32 Left lower quadrant pain (principal); I82.412 Acute embolism and thrombosis of left femoral vein; J44.9 Chronic obstructive pulmonary disease, unspecified; I10 Essential (primary) hypertension; I51.7 Cardiomegaly; F41.9 Anxiety disorder, unspecified; F43.10 Post-traumatic stress disorder, unspecified; F17.210 Nicotine dependence, cigarettes, uncomplicated; Z85.818 Personal history of malignant neoplasm of other sites of lip, oral cavity, and pharynx; Z79.01 Long term (current) use of anticoagulants; Z87.01 Personal history of pneumonia (recurrent)
CPT/HCPCS: 36415; 75635; 80048; 85025; 96361; 96374; 96375

== ENCOUNTER 2019-02-03 06:51 | Emergency (ER) | payer MEDICAID ==
[~2019-02-03] VITALS: Ht 175 cm; Wt 109.0 kg
[~2019-02-03 06:51] MED LIST changes: +APIX5TAB
--- NOTE | 2019-02-03 07:26 | NUR ---
PT STATES HAS HAD NO CHANGE IN MEDS
[2019-02-03] MEDS ORDERED: fentaNYL INJECTION 100 MCG/2 ML AMP IM ONE (08:00)
--- NOTE | 2019-02-03 09:13 | Diagnostic Imaging Report ---
PROCEDURE: US left lower extremity venous. TECHNIQUE: Multiple real-time grayscale images were obtained over the left lower extremity in various projections. Additional duplex Doppler and color Doppler images were also obtained. INDICATION: Leg pain and swelling There are no prior ultrasound examinations available for comparison. There is generally good blood flow and compressibility at all levels. There is no sign of a deep venous thrombosis. IMPRESSION: There is no evidence for a deep venous system of the left lower extremity. Dictated by: Dictated on workstation # [id number]
--- NOTE | 2019-02-03 09:15 | Diagnostic Imaging Report ---
Indication: Left leg pain. Left leg arterial Doppler study performed in the routine fashion with color flow Doppler and waveform analysis. Flow is triphasic in the common femoral artery. The left common femoral artery is aneurysmal measuring 2.2 cm. Flow is biphasic in the profunda femoris artery. The SFA was patent with triphasic flow with no significant velocity elevation. 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 The poplitea aneurysm measured about 2.7 cm in greatest diameter.. There was relatively slow flow of the distal portion of the aneurysm. The anterior vertebral artery is patent proximally but dorsalis pedis shows no flow. Posterior tibial artery is patent with normal velocity and triphasic flow. 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 There is relatively slow flow the popliteal aneurysm distally. There is no flow visualized in the dorsalis pedis. Dictated by: Dictated on workstation # [id number]
[2019-02-03] MEDS ORDERED: NS 100 ML (IVPB) BAG IV ONE (10:00)
[2019-02-03] MEDS ORDERED: CATHETER FLUSH 10 ML SYR IV PRN (10:00)
[2019-02-03] MEDS ORDERED: IOHEXOL 350 MG/ML 100 ML (OMNIPAQUE 350) VIAL IV ONE (10:00)
[2019-02-03] MEDS ORDERED: HOLD METFORMIN - RECEIVED CONTRAST 20 ML VIAL IV SCH (10:00)
[2019-02-03] MEDS ORDERED: fentaNYL INJECTION 100 MCG/2 ML AMP IVP ONE (10:15)
[2019-02-03 10:25] LABS: BASOPHILS % (AUTO) 1 % (0-10); EOSINOPHILS # (AUTO) 0.2 10^3/uL (0.0-0.3); EOSINOPHILS % (AUTO) 3 % (0-10); HEMATOCRIT 54 % (40-54); HEMOGLOBIN 17.9 G/DL (13.3-17.7); LYMPHOCYTES # (AUTO) 1.8 X 10^3 (1.0-4.0); LYMPHOCYTES % (AUTO) 27 % (12-44); MEAN CORPUSCULAR HEMOGLOBIN 29 PG (25-34); MEAN CORPUSCULAR HGB CONC 33 G/DL (32-36); MEAN CORPUSCULAR VOLUME 88 FL (80-99); MEAN PLATELET VOLUME 10.1 FL (7.4-10.4); MONOCYTES # (AUTO) 0.6 X 10^3 (0.0-1.0); MONOCYTES % (AUTO) 10 % (0-12); NEUTROPHILS % (AUTO) 60 % (42-75); PLATELET COUNT 191 10^3/uL (130-400); RED CELL DISTRIBUTION WIDTH 15.2 % (10.0-14.5); WHITE BLOOD COUNT 6.6 10^3/uL (4.3-11.0)
[2019-02-03 10:38] LABS: BUN/CREATININE RATIO 12; CALCIUM 9.6 MG/DL (8.5-10.1); CARBON DIOXIDE 24 MMOL/L (21-32); CHLORIDE 104 MMOL/L (98-107); CREATININE SERUM 1.21 MG/DL (0.60-1.30); GFR ESTIMATED > 60; GLUCOSE 91 MG/DL (70-105); POTASSIUM 4.3 MMOL/L (3.6-5.0); SODIUM 136 MMOL/L (135-145)
--- NOTE | 2019-02-03 11:38 | Diagnostic Imaging Report ---
PROCEDURE: CT pelvis with contrast. TECHNIQUE: Oral and intravenous contrast were administered with pelvic CT performed. Auto Exposure Controls were utilized during the CT exam to meet ALARA standards for radiation dose reduction. INDICATION: Left leg pain from the hip to the foot. Patient had recent left iliac vein stent placement for DVT. Multiphasic imaging through the pelvis was performed utilizing 62nd, 92nd and 122nd delays. The patient does have a left common iliac vein stent. 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 Two CTA runoff study performed on 01/25/2019. No definite thrombus is seen within the left iliac stent, proximal IVC, or visualized segments of the external iliac vein or common femoral vein. Bladder is unremarkable. Prostate is mildly enlarged. There is no free fluid in the pelvis. IMPRESSION: Left common iliac vein stent is compressed by the right common iliac artery consistent with May-Thurner. No definite thrombus is identified. Dictated by: Dictated on workstation # [id number]
[2019-02-03 11:54] VITALS: BP_SYST 134; BP_SYST 137; BP_SYST 139; BP_DIAS 106; BP_DIAS 95; BP_DIAS 99
[2019-02-03] MEDS ORDERED: PRD20T PO (12:12)
[2019-02-03] MEDS ORDERED: ACHD5005 PO (12:12)
--- NOTE | 2019-02-03 12:13 | ED General ---
General Chief Complaint: Lower Extremity Stated Complaint: PAIN IN LEFT LEG & HIP,WEAKNESS Nursing Triage Note: PT AMBULATED TO ROOM 7 W LIMP, PT CO OF L LEG PAIN FROM HIP TO FOOT RATES 10/10. STATES HAS STENT PLACEMENT RECENTLY FOR DVT IN L LEG Nursing Sepsis Screen: No Definite Risk Source of Information: Patient, Old Records Exam Limitations: No Limitations History of Present Illness Date Seen by Provider: Feb 03, 2019 Time Seen by Provider: 07:04 Initial Comments This 53-year-old gentleman presents to the emergency room with complaints of increasing pain in the left lower extremity extending from the buttocks all the way down to the foot. It is most intense around the posterior knee. He has numbness at the medial left foot. He was recently treated at [facility] for DVT in the left leg. He had a venous stent placed as part of the treatment. See transfer documents and documentation from prior ER visit for further details. Pain has escalated but swelling has had not returned. He is presently anticoagulated and denies missing any doses of his medication. 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 His primary care provider is Patrick Matos. Allergies and Home Medications Allergies Coded Allergies: No Known Drug Allergies (Unverified , 11/03/18) Home Medications Carvedilol 6.25 Mg Tablet, Unknown Dose PO BID, (Reported) Hydrocodone Bit/Acetaminophen 1 Tab Tab, 1 EACH PO Q4-6HR PRN for PAIN-MODERATE Prescribed by: ELIANA FINNEY on 02/03/19 1212 Lisinopril 5 Mg Tablet, Unknown Dose PO DAILY, (Reported) Prednisone 20 Mg Tab, 20 MG PO DAILY Prescribed by: ELIANA FINNEY on 02/03/19 1212 Patient Home Medication List Home Medication List Reviewed: Yes Review of Systems Review of Systems Constitutional: no symptoms reported EENTM: no symptoms reported Respiratory: no symptoms reported Cardiovascular: see HPI Gastrointestinal: no symptoms reported Genitourinary: no symptoms reported Musculoskeletal: no symptoms reported Skin: no symptoms reported Psychiatric/Neurological: No Symptoms Reported Hematologic/Lymphatic: No Symptoms Reported Immunological/Allergic: no symptoms reported Past Fnbtxxd-Jfcrvf-Uugiju Hx Patient Social History Alcohol Use: Denies Use Recreational Drug Use: No Drug of Choice: MARIJUANA Smoking Status: Current Everyday Smoker Type Used: Cigarettes 2nd Hand Smoke Exposure: Yes Recent Foreign Travel: No Contact w/Someone Who Travel: No Recent Infectious Disease Expo: No Recent Hopitalizations: Yes (STENT L LOWER EXT) Immunizations Up To Date Tetanus Booster (TDap): Unknown Seasonal Allergies Seasonal Allergies: Yes Past Medical History Surgeries: Yes (chest tube, 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) Orthopedic, Vascular Surgery (Stent to the left iliac vein for treatment of May-Thurner syndrome) Respiratory: Yes Pneumonia, COPD Cardiac: Yes (cardiomegaly) Deep Vein Thrombosis, Hypertension, Peripheral Vascular (May Thurner syndrome) Neurological: No Genitourinary: No Gastrointestinal: No Musculoskeletal: Yes Arthritis, Chronic Back Pain Endocrine: No HEENT: No 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 oz. 108.236305bs; 35.00 BMI Method:Stated General Appearance: No Apparent Distress, WD/WN HEENT: PERRL/EOMI, Normal ENT Inspection Neck: Normal Inspection Respiratory: Lungs Clear, Normal Breath Sounds, No Accessory Muscle Use, No Respiratory Distress Cardiovascular: Regular Rate, Rhythm, No Edema, No Murmur Gastrointestinal: Normal Bowel Sounds, Non Tender, Soft Back: Normal Inspection, No Vertebral Tenderness Extremity: Normal Inspection, Other (Mild edema of the lower extremities equal bilaterally. Absent dorsal pedal pulse on the left. Strong posterior tibialis pulse. Capillary refill less than 5 seconds in the toes bilaterally. 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 Norm as Tested Skin: Normal Color, Warm/Dry Progress/Results/Core Measures Suspected Sepsis Recent Fever Within 48 Hours: No Infection Criteria Present: None New/Unexplained Altered Menta: No Sepsis Screen: No Definite Risk SIRS Temperature: Pulse: 81 Respiratory Rate: 18 Laboratory Tests 02/03/19 10:08: White Blood Count 6.6 Blood Pressure 139 /106 Mean: 117 Laboratory Tests 02/03/19 10:08: Creatinine 1.21, Platelet Count 191 Results/Orders Lab Results Laboratory Tests Test 02/03/19 10:08 Range/Units White Blood Count 6.6 4.3-11.0 10^3/uL Red Blood Count 6.07 H 4.35-5.85 10^6/uL Hemoglobin 17.9 H 13.3-17.7 G/DL Hematocrit 54 40-54 % Mean Corpuscular Volume 88 80-99 FL Mean Corpuscular Hemoglobin 29 25-34 PG Mean Corpuscular Hemoglobin Concent 33 32-36 G/DL Red Cell Distribution Width 15.2 H 10.0-14.5 % Platelet Count 191 130-400 10^3/uL Mean Platelet Volume 10.1 7.4-10.4 FL Neutrophils (%) (Auto) 60 42-75 % Lymphocytes (%) (Auto) 27 12-44 % Monocytes (%) (Auto) 10 0-12 % Eosinophils (%) (Auto) 3 0-10 % Basophils (%) (Auto) 1 0-10 % Neutrophils # (Auto) 4.0 1.8-7.8 X 10^3 Lymphocytes # (Auto) 1.8 1.0-4.0 X 10^3 Monocytes # (Auto) 0.6 0.0-1.0 X 10^3 Eosinophils # (Auto) 0.2 0.0-0.3 10^3/uL Basophils # (Auto) 0.0 0.0-0.1 10^3/uL Sodium Level 136 135-145 MMOL/L Potassium Level 4.3 3.6-5.0 MMOL/L Chloride Level 104 98-107 MMOL/L Carbon Dioxide Level 24 21-32 MMOL/L Anion Gap 8 5-14 MMOL/L Blood Urea Nitrogen 15 7-18 MG/DL Creatinine 1.21 0.60-1.30 MG/DL Estimat Glomerular Filtration Rate > 60 BUN/Creatinine Ratio 12 Glucose Level 91 70-105 MG/DL Calcium Level 9.6 8.5-10.1 MG/DL My Orders Orders - ELIANA QUEZADA MD Us Left Low Ext Arterial 47211 (02/03/19 07:12) Us Venous Lower Ext Lt (02/03/19 07:12) Fentanyl Injection (Sublimaze Injection (02/03/19 08:00) Basic Metabolic Panel (02/03/19 09:44) Cbc With Automated Diff (02/03/19 09:44) Ed Iv/Invasive Line Start (02/03/19 09:44) Iohexol Injection (Omnipaque 350 Mg/Ml 1 (02/03/19 10:00) Di Iv Start (Assessment) .IV start (02/03/19 09:49) Received Contrast (Hold Metformin- Contr (02/03/19 10:00) Sodium Chloride Flush (Catheter Flush Sy (02/03/19 10:00) Ns (Ivpb) (Sodium Chloride 0.9% Ivpb Bag (02/03/19 10:00) Fentanyl Injection (Sublimaze Injection (02/03/19 10:15) Ct Pelvis W (02/03/19 09:44) Medications Given in ED Current Medications Medications Dose Ordered Sig/Alejo Route Start Time Stop Time Status Last Admin Dose Admin Fentanyl Citrate 50 mcg ONCE ONCE IVP 02/03/19 10:15 02/03/19 10:16 DC 02/03/19 10:41 50 MCG Iohexol 100 ml ONCE ONCE IV 02/03/19 10:00 02/03/19 10:01 DC 02/03/19 10:49 100 ML Sodium Chloride 10 ml NEEDED PRN IV 02/03/19 10:00 02/03/19 12:29 DC 02/03/19 10:49 10 ML Sodium Chloride 100 ml ONCE ONCE IV 02/03/19 10:00 02/03/19 10:01 DC 02/03/19 10:49 80 ML Vital Signs/I&O 02/03/19 02/03/19 11:54 12:29 Pulse 80 65 78 81 Resp 16 B/P (MAP) 134/95 (108) 136/98 137/99 (112) 139/106 (117) Pulse Ox 96 Capillary Refill : Less Than 3 Seconds 2 Blood Pressure Mean: 117 Progress Note : Progress Note Patient was seen and examined. Ultrasound studies of the left lower extremity were obtained. Documentation from prior visits and from his stay at [facility] were reviewed. Ultrasound results were discussed with Dr. Matias, dependency counselor on-call for Dr. Brandon. No findings today required transfer to [facility]. He did suggest evaluating the vasculature of the proximal iliac vein and IVC with either ultrasound or CT scan. After discussion with Dr. Lamar, we elected to proceed with CT scan. Labs were checked first. Patient's body habitus would make evaluation by ultrasound very difficult. CT demonstrated a stent in the left common iliac vein as an intervention to treat May Thurner syndrome. There was still compression of the vein despite stenting. Patient's pain was treated with fentanyl. Given absence of new vascular findings, I believe patient's pain is actually likely secondary to a lower back problem causing radiculopathy or sciatica. See discharge instructions. Diagnostic Imaging Diagonstic Imaging: Ultrasound Plain Films/CT/US/NM/MRI: leg Comments NAME: Eliu GRAY JR [facility] REC#: [id number] PT STATUS: REG ER : 1965 PHYSICIAN: ELIANA QUEZADA MD ADMIT DATE: 02/03/19/ER Draft Date of Exam:02/03/19 US VENOUS LOWER EXT LT PROCEDURE: US left lower extremity venous. TECHNIQUE: Multiple real-time grayscale images were obtained over the left lower extremity in various projections. Additional duplex Doppler and color Doppler images were also obtained. INDICATION: Leg pain and swelling There are no prior ultrasound examinations available for comparison. There is generally good blood flow and compressibility at all levels. There is no sign of a deep venous thrombosis. IMPRESSION: There is no evidence for deep venous system of the left lower extremity. Dictated on workstation # [id number] Dict: 02/03/19 0843 Trans: 02/03/[address] [place] [address] [id number] Interpreted by: MATT FINN MD Reviewed: Reviewed by Me Diagonstic Imaging: Ultrasound Plain Films/CT/US/NM/MRI: leg Comments NAME: Eliu GRAY JR [facility] REC#: [id number] PT STATUS: DEP ER : 1965 PHYSICIAN: ELIANA QUEZADA MD ADMIT DATE: 02/03/19/ER Signed Date of Exam: 02/03/19 US LEFT LOW EXT ARTERIAL [id number] Indication: Left leg pain. Left leg arterial Doppler study performed in the routine fashion with color flow Doppler and waveform analysis. Flow is triphasic in the common femoral artery. The left common femoral artery is aneurysmal measuring 2.2 cm. Flow is biphasic in the profunda femoris artery. The SFA was patent with triphasic flow with no significant velocity elevation. 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 The poplitea aneurysm measured about 2.7 cm in greatest diameter.. There was relatively slow flow of the distal portion of the aneurysm. The anterior vertebral artery is patent proximally but dorsalis pedis shows no flow. Posterior tibial artery is patent with normal velocity and triphasic flow. 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 There is relatively slow flow the popliteal aneurysm distally. There is no flow visualized in the dorsalis pedis. Dictated by: Dictated on workstation # [id number] Dict: 02/03/19 0843 Trans: 02/03/19 1243 Interpreted by: SHLOMO BARRAZA MD Electronically signed by: SHLOMO BARRAZA MD 02/03/19 1243 Reviewed: Reviewed by Me Diagonstic Imaging: CT Plain Films/CT/US/NM/MRI: pelvis Comments CT pelvis viewed by me and report reviewed. See report below: NAME: Eliu GRAY [facility] REC#: [id number] PT STATUS: DEP ER : 1965 PHYSICIAN: ELIANA QUEZADA MD ADMIT DATE: 02/03/19/ER Signed Date of Exam: 02/03/19 CT PELVIS W PROCEDURE: CT pelvis with contrast. TECHNIQUE: Oral and intravenous contrast were administered with pelvic CT performed. Auto Exposure Controls were utilized during the CT exam to meet ALARA standards for radiation dose reduction. INDICATION: Left leg pain from the hip to the foot. Patient had recent left iliac vein stent placement for DVT. Multiphasic imaging through the pelvis was performed utilizing 62nd, 92nd and 122nd delays. The patient does have a left common iliac vein stent. 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 Two CTA runoff study performed on 01/25/2019. No definite thrombus is seen within the left iliac stent, proximal IVC, or visualized segments of the external iliac vein or common femoral vein. Bladder is unremarkable. Prostate is mildly enlarged. There is no free fluid in the pelvis. IMPRESSION: Left common iliac vein stent is compressed by the right common iliac artery consistent with May-Thurner. No definite thrombus is identified. Dictated by: Dictated on workstation # [id number] Dict: 02/03/19 1125 Trans: 02/03/19 1539 Interpreted by: ISRA LAMAR MD Electronically signed by: ISRA LAMAR MD 02/03/19 1539 Reviewed: Reviewed by Me, Discussed w/Radiologist, Reviewed/Discussed Departure Impression Primary Impression: May-Thurner syndrome Additional Impressions: Left leg pain Paresthesia of left foot Disposition: 01 HOME, SELF-CARE Condition: Improved Departure-Patient Inst. Decision time for Depature: 12:09 Referrals: [facility] [place] ([place]) Primary Care Physician ELIZABETH MATOS (Family) Primary Care Physician Patient Instructions: Radiculopathy Add. Discharge Instructions: The exact cause of your pain is uncertain. It does not appear to be related to any blood clotting. Based on the distribution in nature of your pain, seems likely this is related to a nerve impingement from your lower back or sciatic nerve. Use the prednisone steroids as prescribed and follow-up with your primary care provider for further evaluation. Less likely, pain could be caused by mass affect pressure from the aneurysms behind her knees. To help alleviate swelling and pain, elevate your left leg to the level of heart when you're at rest is much as possible. Avoid prolonged periods of time with your feet dangling or in a standing position. Continue with your medications as previously prescribed. Weight loss will likely help improve your blood flow and take pressure off of the vessels in your leg. Please work toward weight reduction. Quitting smoking is very important in reducing your vascular risk factors. Please continue working toward smoking cessation. Follow-up with Dr. Brandon and your primary care provider soon as possible. Bring your discharge papers including the imaging report to your follow-up appointments. Slightly return to care if you have worsening symptoms despite these measures. All discharge instructions reviewed with patient and/or family. Voiced understanding. Scripts Prednisone (Prednisone) 20 Mg Tab 20 MG PO DAILY, #4 TAB 0 Refills Prov: ELIANA QUEZADA MD 02/03/19 Hydrocodone Bit/Acetaminophen (Hydrocodone/Acetaminophen 5/325mg Tablet) 1 Tab Tab 1 EACH PO Q4-6HR PRN for PAIN-MODERATE MDD 10, #10 TAB Prov: ELIANA QUEZADA MD 02/03/19 Copy Copies To 1: PRISCILA JOSEPH JOSHUA T MD Feb 03, 2019 12:13
[2019-02-03 12:29] VITALS: BP 136/98
== END 2019-02-03 12:29 | disposition home or self-care (01) ==
LOC: EDUNIT# 06:51 → ER 06:54
DX: I87.1 Compression of vein (principal); M79.662 Pain in left lower leg; R20.2 Paresthesia of skin; J44.9 Chronic obstructive pulmonary disease, unspecified; I10 Essential (primary) hypertension; I73.9 Peripheral vascular disease, unspecified; F41.9 Anxiety disorder, unspecified; F43.10 Post-traumatic stress disorder, unspecified; F17.210 Nicotine dependence, cigarettes, uncomplicated; Z86.718 Personal history of other venous thrombosis and embolism; Z79.01 Long term (current) use of anticoagulants; Z85.828 Personal history of other malignant neoplasm of skin
CPT/HCPCS: 36415; 72193; 80048; 85025; 93926

== ENCOUNTER 2019-02-18 09:31 | Emergency (ER) | payer MEDICAID ==
[~2019-02-18] VITALS: Ht 172.7 cm; Wt 135.4 kg
[~2019-02-18 09:31] MED LIST changes: +ACHD5005 PO; +PRD20T PO
[2019-02-18] MEDS ORDERED: morphine INJ 10 MG/ML 1ML (SYR OR VIAL) IV STA (10:04)
[2019-02-18 10:23] LABS: BASOPHILS % (AUTO) 0 % (0-10); EOSINOPHILS # (AUTO) 0.2 10^3/uL (0.0-0.3); EOSINOPHILS % (AUTO) 2 % (0-10); HEMATOCRIT 50 % (40-54); HEMOGLOBIN 17.3 G/DL (13.3-17.7); LYMPHOCYTES # (AUTO) 1.3 X 10^3 (1.0-4.0); LYMPHOCYTES % (AUTO) 13 % (12-44); MEAN CORPUSCULAR HEMOGLOBIN 30 PG (25-34); MEAN CORPUSCULAR HGB CONC 35 G/DL (32-36); MEAN CORPUSCULAR VOLUME 88 FL (80-99); MEAN PLATELET VOLUME 10.4 FL (7.4-10.4); MONOCYTES # (AUTO) 0.6 X 10^3 (0.0-1.0); MONOCYTES % (AUTO) 6 % (0-12); NEUTROPHILS # (AUTO) 7.9 X 10^3 (1.8-7.8); NEUTROPHILS % (AUTO) 79 % (42-75); PLATELET COUNT 185 10^3/uL (130-400)
[2019-02-18 10:28] LABS: PROTHROMBIN TIME PATIENT 13.7 SEC (12.2-14.7)
[2019-02-18 10:35] LABS: ALANINE AMINOTRANSFERASE 19 U/L (0-55); ALBUMIN 4.2 GM/DL (3.2-4.5); ALKALINE PHOSPHATASE 55 U/L (40-136); BILIRUBIN,TOTAL 0.8 MG/DL (0.1-1.0); BUN/CREATININE RATIO 14; CALCIUM 9.7 MG/DL (8.5-10.1); CARBON DIOXIDE 25 MMOL/L (21-32); CHLORIDE 106 MMOL/L (98-107); CREATININE SERUM 1.23 MG/DL (0.60-1.30); GFR ESTIMATED > 60; GLUCOSE 107 MG/DL (70-105); MAGNESIUM 1.9 MG/DL (1.6-2.4); POTASSIUM 3.9 MMOL/L (3.6-5.0); SODIUM 140 MMOL/L (135-145); TOTAL PROTEIN 6.8 GM/DL (6.4-8.2)
--- NOTE | 2019-02-18 10:40 | ED Chest Pain ---
General Chief Complaint: Chest Pain Stated Complaint: CHEST PAIN;SWEATING Nursing Triage Note: Ambulatory to rm 7. Pt reports chest pain upon waking this morning that was radiating from L shoulder to R kidney. Pt reports calling PCP and was told to come to ED. 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 Pt denies chest pain at time of assessment. Pt also reports increased groin pain since having "relations" with significant other. Nursing Sepsis Screen: No Definite Risk Source: patient, family Exam Limitations: no limitations History of Present Illness Date Seen by Provider: Feb 18, 2019 Time Seen by Provider: 10:36 Initial Comments This 53-year-old white male presents with a complaint of recurrent left leg pain that was present upon awakening this morning with associated chest and back pain. The patient has had a recent episode of clotting of his left iliac and inferior vena cava for which he was hospitalized at [facility] for several days after transfer from [place]. The patient was found to have in addition aneurysms to the vasculature of his left lower extremity. The patient's pain was accompanied by diaphoresis and nausea and vomiting. The patient's chest pain has spontaneously resolved. The patient also notes that his left groin has been tender at the catheterization site for the last several days following vigorous intercourse with his . Patient denies associated fever, chills, headache, stiff neck, or photophobia. He has had no dysuria or frequency. The patient's emesis was benign. Patient continues to smoke. Allergies and Home Medications Allergies Coded Allergies: No Known Drug Allergies (Unverified , 11/03/18) Home Medications Carvedilol 6.25 Mg Tablet, Unknown Dose PO BID, (Reported) Hydrocodone Bit/Acetaminophen 1 Tab Tab, 1 EACH PO Q4-6HR PRN for PAIN-MODERATE Prescribed by: ELIANA FINNEY on 02/03/19 1212 Lisinopril 5 Mg Tablet, Unknown Dose PO DAILY, (Reported) Prednisone 20 Mg Tab, 20 MG PO DAILY Prescribed by: ELIANA FINNEY on 02/03/19 1212 Patient Home Medication List Home Medication List Reviewed: Yes Review of Systems Review of Systems Constitutional: No chills, No fever EENTM: No Blurred Vision, No Ear Pain Respiratory: Denies Cough, Denies Shortness of Air Cardiovascular: Chest Pain; Denies Palpitations Gastrointestinal: Denies Abdomen Distended, Denies Diarrhea; Nausea, Vomiting Genitourinary: No Symptoms Reported Musculoskeletal: see HPI, back pain Skin: no symptoms reported Psychiatric/Neurological: No Symptoms Reported Endocrine: No Symptoms Reported Hematologic/Lymphatic: No Symptoms Reported Past Suoiggi-Yrxmiw-Zmvyes Hx Past Med/Social Hx: Reviewed Nursing Past Med/Soc Hx Patient Social History Alcohol Use: Denies Use Recreational Drug Use: Yes Drug of Choice: medical marijuana Smoking Status: Current Everyday Smoker Type Used: Cigarettes 2nd Hand Smoke Exposure: Yes Recent Foreign Travel: No Contact w/Someone Who Travel: No Recent Infectious Disease Expo: No Recent Hopitalizations: Yes (STENT L LOWER EXT) Physical Abuse: No Sexual Abuse: No Immunizations Up To Date Tetanus Booster (TDap): Unknown Seasonal Allergies Seasonal Allergies: Yes Past Medical History Surgeries: Yes (chest tube, 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) Orthopedic, Vascular Surgery Respiratory: Yes Pneumonia, COPD Cardiac: Yes (cardiomegaly) Deep Vein Thrombosis, Hypertension, Peripheral Vascular Neurological: No Genitourinary: No Gastrointestinal: No Musculoskeletal: Yes Arthritis, Chronic Back Pain Endocrine: No HEENT: No 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 oz. 108.929952rk; 45.00 BMI Method:Stated General Appearance: No Apparent Distress, WD/WN HEENT: PERRL/EOMI, Normal ENT Inspection Neck: Full Range of Motion, Normal Inspection, Non Tender Respiratory: Lungs Clear, Normal Breath Sounds Cardiovascular: Regular Rate, Rhythm, No Murmur Gastrointestinal: Normal Bowel Sounds, Non Tender, Soft Extremity: Normal Capillary Refill, Normal Inspection Neurologic/Psychiatric: Alert, Oriented x3, No Motor/Sensory Deficits, Normal Mood/Affect Skin: Normal Color, Warm/Dry; No Rash Progress/Results/Core Measures Results/Orders Lab Results Laboratory Tests Test 02/18/19 09:44 Range/Units White Blood Count 10.0 4.3-11.0 10^3/uL Red Blood Count 5.71 4.35-5.85 10^6/uL Hemoglobin 17.3 13.3-17.7 G/DL Hematocrit 50 40-54 % Mean Corpuscular Volume 88 80-99 FL Mean Corpuscular Hemoglobin 30 25-34 PG Mean Corpuscular Hemoglobin Concent 35 32-36 G/DL Red Cell Distribution Width 15.0 H 10.0-14.5 % Platelet Count 185 130-400 10^3/uL Mean Platelet Volume 10.4 7.4-10.4 FL Neutrophils (%) (Auto) 79 H 42-75 % Lymphocytes (%) (Auto) 13 12-44 % Monocytes (%) (Auto) 6 0-12 % Eosinophils (%) (Auto) 2 0-10 % Basophils (%) (Auto) 0 0-10 % Neutrophils # (Auto) 7.9 H 1.8-7.8 X 10^3 Lymphocytes # (Auto) 1.3 1.0-4.0 X 10^3 Monocytes # (Auto) 0.6 0.0-1.0 X 10^3 Eosinophils # (Auto) 0.2 0.0-0.3 10^3/uL Basophils # (Auto) 0.0 0.0-0.1 10^3/uL Prothrombin Time 13.7 12.2-14.7 SEC INR Comment 1.0 0.8-1.4 Activated Partial Thromboplast Time 32 24-35 SEC D-Dimer 0.74 H 0.00-0.49 UG/ML Sodium Level 140 135-145 MMOL/L Potassium Level 3.9 3.6-5.0 MMOL/L Chloride Level 106 98-107 MMOL/L Carbon Dioxide Level 25 21-32 MMOL/L Anion Gap 9 5-14 MMOL/L Blood Urea Nitrogen 17 7-18 MG/DL Creatinine 1.23 0.60-1.30 MG/DL Estimat Glomerular Filtration Rate > 60 BUN/Creatinine Ratio 14 Glucose Level 107 H 70-105 MG/DL Calcium Level 9.7 8.5-10.1 MG/DL Corrected Calcium 9.5 8.5-10.1 MG/DL Magnesium Level 1.9 1.6-2.4 MG/DL Total Bilirubin 0.8 0.1-1.0 MG/DL Aspartate Amino Transf (AST/SGOT) 13 5-34 U/L Alanine Aminotransferase (ALT/SGPT) 19 0-55 U/L Alkaline Phosphatase 55 40-136 U/L Myoglobin 54.3 10.0-92.0 NG/ML Troponin I < 0.028 <0.028 NG/ML Total Protein 6.8 6.4-8.2 GM/DL Albumin 4.2 3.2-4.5 GM/DL My Orders Orders - YANNI, BERENICE Morse MD Cbc With Automated Diff (02/18/19 10:04) Magnesium (02/18/19 10:04) Chest 1 View, Ap/Pa Only (02/18/19 10:04) Ekg Tracing (02/18/19 10:04) Cardiac Profile 1 (02/18/19 10:04) Comprehensive Metabolic Panel (02/18/19 10:04) Myoglobin Serum (02/18/19 10:04) Protime With Inr (02/18/19 10:04) Partial Thromboplastin Time (02/18/19 10:04) O2 (02/18/19 10:04) Monitor-Rhythm Ecg Trace Only (02/18/19 10:04) Lipid Panel (02/19/19 06:00) Ed Iv/Invasive Line Start (02/18/19 10:04) Fibrin Degradation Products (02/18/19 10:04) Morphine Injection (Morphine Injection (02/18/19 10:04) Us Venous Lower Ext Lt (02/18/19 10:04) Ct Angio Chest W (02/18/19 10:17) Iohexol Injection (Omnipaque 350 Mg/Ml 1 (02/18/19 10:45) Received Contrast (Hold Metformin- Contr (02/18/19 10:45) Ns (Ivpb) (Sodium Chloride 0.9% Ivpb Bag (02/18/19 10:45) Ns Iv 1000 Ml (Sodium Chloride 0.9%) (02/18/19 12:00) Fentanyl Injection (Sublimaze Injection (02/18/19 12:00) Medications Given in ED Current Medications Medications Dose Ordered Sig/Alejo Route Start Time Stop Time Status Last Admin Dose Admin Iohexol 150 ml ONCE ONCE IV 02/18/19 10:45 02/18/19 10:46 DC 02/18/19 10:55 88 ML Sodium Chloride 100 ml ONCE ONCE IV 02/18/19 10:45 02/18/19 10:46 DC 02/18/19 10:55 80 ML Vital Signs/I&O 02/18/19 02/18/19 09:33 09:33 Temp 37.6 Pulse 86 Resp 15 B/P (MAP) 159/117 (131) Pulse Ox 97 O2 Delivery Room Air Room Air Blood Pressure Mean: 131 Progress Progress Note : Time: 11:56 Progress Note The patient's complete evaluation failed to demonstrate evidence of thrombophlebitis, pulmonary embolus, or myocardial infarction. Patient will follow up with Patrick Dunne at [facility] immediately for further evaluation. Departure Impression Primary Impression: Chest pain Qualified Codes: R07.9 - Chest pain, unspecified Disposition: 01 HOME, SELF-CARE Condition: Improved Departure-Patient Inst. Decision time for Depature: 12:06 Referrals: [facility] (PCP) Primary Care Physician ELIZABETH DEGROOT (Family) Primary Care Physician Patient Instructions: Chest Pain That Is Not Caused by the Heart (DC) Add. Discharge Instructions: Follow-up with on-call at [facility] for further evaluation now. Return milligrams or questions. All discharge instructions reviewed with patient and/or family. Voiced understanding. BERENICE LIAO MD Feb 18, 2019 10:40
[2019-02-18] MEDS ORDERED: NS 100 ML (IVPB) BAG IV ONE (10:45)
[2019-02-18] MEDS ORDERED: IOHEXOL 350 MG/ML 150 ML (OMNIPAQUE 350) VIAL IV ONE (10:45)
[2019-02-18] MEDS ORDERED: HOLD METFORMIN - RECEIVED CONTRAST 20 ML VIAL IV SCH (10:45)
--- NOTE | 2019-02-18 10:58 | Diagnostic Imaging Report ---
INDICATION: Left leg pain. Left leg venous Doppler study was performed in the routine fashion with color flow Doppler and waveform analysis. FINDINGS: The left common femoral vein, superficial femoral vein, popliteal vein and visualized portion of the posterior tibial vein show normal compressibility and venous flow patterns. There is normal augmentation. A left popliteal artery aneurysm is incidentally noted measuring 2.2 cm. IMPRESSION: No evidence of deep vein thrombosis of the major veins of the left leg. Left popliteal artery aneurysm noted as above. Dictated by: Dictated on workstation # [id number]
--- NOTE | 2019-02-18 10:58 | Diagnostic Imaging Report ---
PATIENT HISTORY: Chest pain. TECHNIQUE: Frontal view of the chest COMPARISON: 01/08/2019 FINDINGS: Lung volumes are normal. No focal consolidation is seen. There is no pleural effusion or pneumothorax. The cardiac silhouette is normal in size and contour. IMPRESSION: No acute pulmonary abnormality seen. Dictated by: Dictated on workstation # [id number]
--- NOTE | 2019-02-18 11:15 | Diagnostic Imaging Report ---
PROCEDURE: CT angiography of the chest with contrast. TECHNIQUE: Multiple contiguous axial images were obtained through the chest after uneventful bolus administration of intravenous contrast. 3D reconstructed CTA MIP acquisitions were also performed. Auto Exposure Controls were utilized during the CT exam to meet ALARA standards for radiation dose reduction. INDICATION: Chest pain radiating to the left shoulder as well as diaphoresis and vomiting. Correlation is made with prior CT angiogram of the chest from 11/03/2018. Evaluation of the pulmonary arterial system is without evidence of thromboembolism. No definite filling defects are seen within central, lobar or segmental branches. The thoracic aorta is normal caliber. No pericardial or pleural fluid is identified. Previously noted pleural fluid and pleural thickening in the right chest on prior CT is no longer visualized. Pulmonary parenchymal evaluation does show some minimal scarring or atelectasis right lower lobe laterally. No definite infiltrate, nodule or mass is seen. The upper abdomen is unremarkable. IMPRESSION: 1. No evidence of pulmonary embolism or thoracic aortic dissection. No acute feature is detected. Dictated by: Dictated on workstation # [id number]
--- NOTE | 2019-02-18 11:22 | NUR ---
Pt reports pain of 10/10 and states morphine "did not even put a dent in the pain." Pt is asking for additional pain medication at this time. Dr. Bautista notified.
[2019-02-18] MEDS ORDERED: NS IV 1000 ML 1,000 ML IV SCH (12:00)
[2019-02-18] MEDS ORDERED: fentaNYL INJECTION 100 MCG/2 ML AMP IVP ONE (12:00)
[2019-02-18 12:19] VITALS: BP 150/112
== END 2019-02-18 12:28 | disposition home or self-care (01) ==
LOC: EDUNIT# 09:31 → ER 09:32
DX: R07.9 Chest pain, unspecified (principal); I10 Essential (primary) hypertension; J44.9 Chronic obstructive pulmonary disease, unspecified; F43.10 Post-traumatic stress disorder, unspecified; F41.9 Anxiety disorder, unspecified; F17.210 Nicotine dependence, cigarettes, uncomplicated; Z86.718 Personal history of other venous thrombosis and embolism; Z85.828 Personal history of other malignant neoplasm of skin
CPT/HCPCS: 36415; 71045; 71275; 80053; 83735; 83874; 84484; 85025; 85379; 85610; 85730; 93005; 93041

== ENCOUNTER → 2019-06-02 | Outpatient (CLI) | payer MEDICAID ==
[2019-06-02 09:58] LABS: BASOPHILS # (AUTO) 0.1 10^3/uL (0.0-0.1); BASOPHILS % (AUTO) 1 % (0-10); EOSINOPHILS # (AUTO) 0.2 10^3/uL (0.0-0.3); EOSINOPHILS % (AUTO) 2 % (0-10); HEMATOCRIT 52 % (40-54); HEMOGLOBIN 17.9 G/DL (13.3-17.7); LYMPHOCYTES # (AUTO) 1.9 X 10^3 (1.0-4.0); LYMPHOCYTES % (AUTO) 23 % (12-44); MEAN CORPUSCULAR HEMOGLOBIN 33 PG (25-34); MEAN CORPUSCULAR HGB CONC 35 G/DL (32-36); MEAN CORPUSCULAR VOLUME 94 FL (80-99); MEAN PLATELET VOLUME 10.2 FL (7.4-10.4); MONOCYTES # (AUTO) 0.9 X 10^3 (0.0-1.0); MONOCYTES % (AUTO) 11 % (0-12); NEUTROPHILS # (AUTO) 5.3 X 10^3 (1.8-7.8); NEUTROPHILS % (AUTO) 63 % (42-75); PLATELET COUNT 186 10^3/uL (130-400); RED CELL DISTRIBUTION WIDTH 13.5 % (10.0-14.5); WHITE BLOOD COUNT 8.4 10^3/uL (4.3-11.0)
[2019-06-02 10:24] LABS: ALANINE AMINOTRANSFERASE 27 U/L (0-55); ALBUMIN 4.5 GM/DL (3.2-4.5); ALKALINE PHOSPHATASE 58 U/L (40-136); BILIRUBIN,TOTAL 0.5 MG/DL (0.1-1.0); BUN/CREATININE RATIO 18; CALCIUM 9.7 MG/DL (8.5-10.1); CARBON DIOXIDE 20 MMOL/L (21-32); CHLORIDE 106 MMOL/L (98-107); CHOLESTEROL 179 MG/DL (< 200); GFR ESTIMATED > 60; GLUCOSE 92 MG/DL (70-105); HDL CHOLESTEROL 28 MG/DL (40-60); POTASSIUM 3.9 MMOL/L (3.6-5.0); SODIUM 137 MMOL/L (135-145); TOTAL PROTEIN 7.2 GM/DL (6.4-8.2); TRIGLYCERIDES 152 MG/DL (<150); VLDL CHOLESTEROL 30 MG/DL (5-40)
== END ==
LOC: LAB 09:40
PROVIDERS: ATTEND Internal Medicine Cardiovascular Disease
DX: I70.8 Atherosclerosis of other arteries (principal); I10 Essential (primary) hypertension; I42.0 Dilated cardiomyopathy; Z86.718 Personal history of other venous thrombosis and embolism; Z72.0 Tobacco use
CPT/HCPCS: 36415; 80053; 80061; 83735; 85025

== ENCOUNTER → 2019-06-07 | Outpatient (CLI) | payer MEDICAID ==
[~2019-06-07] VITALS: Ht 172 cm; Wt 109.0 kg
[~2019-06-07] MED LIST changes: -APIX5TAB; +APIX5TAB PO; +ASPI-586 PO; +CARV12.53 PO; +CATHETER FLUSH 10 ML SYR IV PRN; +LISI1TAB26 PO; +LORA-404 PO; +REGADENOSON 0.4 MG/5 ML SYR (LEXISCAN) IV ONE; +RT-ALBUINH IH; +TRM50T PO
[2019-06-07 13:34] VITALS: BP 142/93
--- NOTE | 2019-06-09 20:33 | STRESS TEST ---
DATE OF SERVICE: 06/07/2019 RESTING AND POST REGADENOSON TECHNETIUM-99M TETROFOSMIN SPECT CT IMAGING ORDERING PHYSICIAN: Dr. Garcia. PRIMARY PHYSICIAN: Justus Mast DO. OTHER PHYSICIAN: Capo Matos APRN. CLINICAL DIAGNOSES: Hypertension, peripheral arterial disease, dilated cardiomyopathy. Baseline images were carried out after injection of 10.02 mCi of technetium-99m Tetrofosmin. This was followed by 0.4 mg regadenoson and 28.1 mCi of technetium-99m Tetrofosmin for stress imaging. The electrocardiogram showed sinus rhythm at baseline. There was nonspecific ST abnormality. The electrocardiogram did not change significantly with regadenoson infusion. Review of images at rest and following stress indicate a small transient apical perfusion defect. Gated images show global left ventricular systolic function at the lower limit of normal. There is no distinct regional wall motion abnormality. Left ventricular end diastolic volume is 111 mL. TID is absent (1). Left ventricular ejection fraction is calculated to be 50%. CONCLUSIONS: 1. This study suggests a small amount of apical ischemia. 2. Global left ventricular systolic function at the lower limit of normal with an ejection fraction of 50%. 3. Mild cardiomegaly. 4. No regional wall motion abnormalities seen on this study. Job ID: [id number] DocumentID: [id number] Dictated Date: 06/09/2019 17:02:22 Cat Sitter Date: 06/09/2019 20:33:17 Dictated By: LINO GARCIA MD, MA, FACP, FACC,
== END ==
LOC: CARD 12:18
PROVIDERS: ATTEND Internal Medicine Cardiovascular Disease
DX: I11.9 Hypertensive heart disease without heart failure (principal); I42.0 Dilated cardiomyopathy; I73.9 Peripheral vascular disease, unspecified; R07.9 Chest pain, unspecified; Z86.718 Personal history of other venous thrombosis and embolism
CPT/HCPCS: 78452; 93017

== ENCOUNTER → 2019-06-09 | Outpatient (CLI) | payer MEDICAID ==
[~2019-06-09] MED LIST changes: -CATHETER FLUSH 10 ML SYR IV PRN; -REGADENOSON 0.4 MG/5 ML SYR (LEXISCAN) IV ONE
== END ==
LOC: CARD 13:39
PROVIDERS: ATTEND Internal Medicine Cardiovascular Disease
DX: I42.0 Dilated cardiomyopathy (principal); I11.9 Hypertensive heart disease without heart failure; I73.9 Peripheral vascular disease, unspecified; Z86.718 Personal history of other venous thrombosis and embolism; I35.1 Nonrheumatic aortic (valve) insufficiency
CPT/HCPCS: 93306

== ENCOUNTER 2019-06-16 09:15 | Outpatient (CLI) | payer MEDICAID ==
[~2019-06-16] VITALS: Ht 172.7 cm; Wt 104.5 kg
[~2019-06-16 09:15] MED LIST changes: -ASPI-586 PO; -CARV12.53 PO; -LISI1TAB26 PO; -LORA-404 PO; -RT-ALBUINH IH; -TRM50T PO
[2019-06-16] MEDS ORDERED: RT-ALBUINH IH (10:34)
[2019-06-16] MEDS ORDERED: ASPI-586 PO (10:34)
[2019-06-16] MEDS ORDERED: LORA-404 PO (10:34)
[2019-06-16] MEDS ORDERED: TRM50T PO (10:34)
[2019-06-16] MEDS ORDERED: CARV12.53 PO (10:34)
[2019-06-16] MEDS ORDERED: LISI1TAB26 PO (10:34)
== END 2019-06-16 10:39 | disposition home or self-care (01) ==
LOC: PREOP 09:15
PROVIDERS: ATTEND Specialist
DX: Z01.818 Encounter for other preprocedural examination (principal)

== ENCOUNTER 2019-06-17 06:54 | Day surgery (SDC) | payer MEDICAID ==
[~2019-06-17] VITALS: Ht 172.2 cm; Wt 104.5 kg
[~2019-06-17 06:54] MED LIST changes: +ASPI-586 PO; +CARV12.53 PO; +LISI1TAB26 PO; +LORA-404 PO; +RT-ALBUINH IH; +TRM50T PO
[2019-06-17 07:00] VITALS: BP 133/89
[2019-06-17] MEDS ORDERED: LIDOCAINE PF 1% 2 ML VIAL IR PRN (07:15)
[2019-06-17] MEDS ORDERED: TIMOLOL MALEATE 0.5% 5 ML (TIMOPTIC) BTL OU PRN (07:15)
[2019-06-17] MEDS ORDERED: POVIDONE (BETADINE) OPHTH SOLN 5% 30 ML OP ONE (07:15)
[2019-06-17] MEDS ORDERED: MOXIFLOXACIN OPHTH SOLN 5 MG/ML 0.3 ML SYRINGE OP ONE (07:15)
[2019-06-17] MEDS: TETRACAINE 0.5% OPHTH SOLN 4 ML BTL (SINGLE DOSE ONLY) OU PRN ×4 (07:16→07:58)
[2019-06-17] MEDS: PHENYLEPHRINE 10% OPHTH (NEO-SYN) 5 ML BTL OU SCH ×3 (07:31→07:58)
[2019-06-17] MEDS: CYCLOPENTOLATE 1% (CYCLOGYL) 2 ML DROPS OP SCH ×3 (07:32→07:58)
[2019-06-17] MEDS ORDERED: MIDAZOLAM 2 MG/2 ML (VERSED) VIAL ONE (08:16)
[2019-06-17] MEDS ORDERED: acetaZOLAMIDE ER 500 MG CAP (DIAMOX SEQUELS) PO ONE (08:30)
--- NOTE | 2019-06-17 08:33 | Ophthalmologist Pre-Op Note ---
Pre-Operative Progress Note H&P Reviewed The H&P was reviewed, patient examined and no changes noted. Date H&P Reviewed: Jun 17, 2019 Time H&P Reviewed: 08:32 Pre-Op Dx Cataract, Left Eye MARY ALICE BRANDON MD Jun 17, 2019 08:32
--- NOTE | 2019-06-17 08:54 | Ophthalmology Operative Report ---
Cataract removal/placement IOL PREOPERATIVE DIAGNOSIS: Cataract Left Eye POSTOPERATIVE DIAGNOSIS: Cataract Left Eye PROCEDURE: Cataract removal and placement of posterior chamber implant, left eye SURGEON: Jim Brandon ANESTHESIA: Topical with sedation COMPLICATIONS: None ESTIMATED BLOOD LOSS: Minimal DESCRIPTION OF PROCEDURE: After proper informed consent was obtained, the patient, a 53 male, was taken to the Operating Room and the left eye was anesthetized with tetracaine. The left eye was then prepped and draped in the usual manner. A wire lid speculum was placed. A paracentesis was made at the left hand position. Preservative free lidocaine was injected into the anterior chamber followed by viscoelastic. A clear corneal incision was made in the temporal position. A capsulorrhexis was preformed and the central nuclear and cortical material were removed. The posterior capsule was polished and an Tristen 20.5 AU00T0 was placed into the capsular bag. The residual viscoelastic was aspirated and balanced saline solution was injected into the anterior chamber. Moxifloxacin was injected into the anterior chamber. The wound was checked and found to be water tight. The patient tolerated the procedure well without complications. JIM BRANDON MD Jun 17, 2019 08:54
[2019-06-17 09:05] VITALS: BP 123/91
--- NOTE | 2019-06-17 14:14 | Anesthesia-General Post-Op ---
MAC Patient Condition Mental Status/LOC: Same as Preop Cardiovascular: Satisfactory Nausea/Vomiting: Absent Respiratory: Satisfactory Pain: Controlled Complications: Absent Post Op Complications Complications None Follow Up Care/Instructions Patient Instructions None needed. Anesthesiology Discharge Order Discharge Order Patient is doing well, no complaints, stable vital signs, no apparent adverse anesthesia problems. No complications reported per nursing. LUCA GIFFORD CRNA Jun 17, 2019 14:14
== END 2019-06-17 09:05 | disposition home or self-care (01) ==
LOC: SDC 06:54
PROVIDERS: ATTEND Specialist
DX: H25.12 Age-related nuclear cataract, left eye (principal); I10 Essential (primary) hypertension; I20.9 Angina pectoris, unspecified; J45.909 Unspecified asthma, uncomplicated; Z79.899 Other long term (current) drug therapy

== ENCOUNTER 2019-07-01 06:05 | Day surgery (SDC) | payer MEDICAID ==
[~2019-07-01] VITALS: Ht 173 cm; Wt 104.5 kg
[2019-07-01 06:05] VITALS: BP 144/140
[2019-07-01] MEDS ORDERED: TIMOLOL MALEATE 0.5% 5 ML (TIMOPTIC) BTL OU PRN (06:15)
[2019-07-01] MEDS ORDERED: POVIDONE (BETADINE) OPHTH SOLN 5% 30 ML OP ONE (06:15)
[2019-07-01] MEDS ORDERED: LIDOCAINE PF 1% 2 ML VIAL IR PRN (06:15)
[2019-07-01] MEDS ORDERED: MOXIFLOXACIN OPHTH SOLN 5 MG/ML 0.3 ML SYRINGE OP ONE (06:15)
[2019-07-01] MEDS: TETRACAINE 0.5% OPHTH SOLN 4 ML BTL (SINGLE DOSE ONLY) OU PRN ×4 (06:25→06:59)
[2019-07-01] MEDS: PHENYLEPHRINE 10% OPHTH (NEO-SYN) 5 ML BTL OU SCH ×3 (06:42→06:59)
[2019-07-01] MEDS: CYCLOPENTOLATE 1% (CYCLOGYL) 2 ML DROPS OP SCH ×3 (06:42→06:59)
--- NOTE | 2019-07-01 06:49 | Ophthalmologist Pre-Op Note ---
Pre-Operative Progress Note H&P Reviewed The H&P was reviewed, patient examined and no changes noted. Date H&P Reviewed: Jul 01, 2019 Time H&P Reviewed: 06:49 Pre-Op Dx Cataract, Right Eye MARY ALICE BRANDON MD Jul 01, 2019 06:49
[2019-07-01] MEDS ORDERED: MIDAZOLAM 2 MG/2 ML (VERSED) VIAL ONE (06:53)
--- NOTE | 2019-07-01 07:29 | Ophthalmology Operative Report ---
Cataract removal/placement IOL PREOPERATIVE DIAGNOSIS: Cataract Right Eye POSTOPERATIVE DIAGNOSIS: Cataract Right Eye PROCEDURE: Cataract removal and placement of posterior chamber implant, right eye SURGEON: Jim Brandon ANESTHESIA: Topical with sedation COMPLICATIONS: None ESTIMATED BLOOD LOSS: Minimal DESCRIPTION OF PROCEDURE: After proper informed consent was obtained, the patient, a 53 male, was taken to the Operating Room and the right eye was anesthetized with tetracaine. The right eye was then prepped and draped in the usual manner. A wire lid speculum was placed. A paracentesis was made at the left hand position. Preservative free lidocaine was injected into the anterior chamber followed by viscoelastic. A clear corneal incision was made in the temporal position. A capsulorrhexis was preformed and the central nuclear and cortical material were removed. The posterior capsule was polished and Tristen 20.5 AU00T0 IOL was placed into the capsular bag. The residual viscoelastic was aspirated and balanced saline solution was injected into the anterior chamber. Moxifloxacin was injected into the anterior chamber. The wound was checked and found to be water tight. The patient tolerated the procedure well without complications. JIM BRANDON MD Jul 01, 2019 07:29
[2019-07-01] MEDS ORDERED: acetaZOLAMIDE ER 500 MG CAP (DIAMOX SEQUELS) PO ONE (07:30)
[2019-07-01 07:40] VITALS: BP 156/101
--- NOTE | 2019-07-01 14:36 | Anesthesia-General Post-Op ---
MAC Patient Condition Mental Status/LOC: Same as Preop Cardiovascular: Satisfactory Nausea/Vomiting: Absent Respiratory: Satisfactory Pain: Controlled Complications: Absent Post Op Complications Complications None Follow Up Care/Instructions Patient Instructions None needed. Anesthesiology Discharge Order Discharge Order Patient was seen this morning after the procedure and he was doing well, no complaints, stable vital signs, no apparent adverse anesthesia problems. OLIVE BURK DO Jul 01, 2019 14:36
== END 2019-07-01 07:40 | disposition home or self-care (01) ==
LOC: SDC 06:05
PROVIDERS: ATTEND Specialist
DX: H25.11 Age-related nuclear cataract, right eye (principal); I10 Essential (primary) hypertension; J45.909 Unspecified asthma, uncomplicated; Z79.899 Other long term (current) drug therapy; Z79.82 Long term (current) use of aspirin

== ENCOUNTER 2019-08-09 12:15 | Emergency (ER) | payer MEDICAID ==
[~2019-08-09] VITALS: Ht 172 cm; Wt 113.4 kg
[2019-08-09 12:41] LABS: BASOPHILS # (AUTO) 0.1 10^3/uL (0.0-0.1); BASOPHILS % (AUTO) 0 % (0-10); EOSINOPHILS # (AUTO) 0.2 10^3/uL (0.0-0.3); EOSINOPHILS % (AUTO) 2 % (0-10); HEMATOCRIT 53 % (40-54); HEMOGLOBIN 18.4 G/DL (13.3-17.7); LYMPHOCYTES # (AUTO) 2.7 X 10^3 (1.0-4.0); LYMPHOCYTES % (AUTO) 23 % (12-44); MEAN CORPUSCULAR HEMOGLOBIN 33 PG (25-34); MEAN CORPUSCULAR HGB CONC 35 G/DL (32-36); MEAN CORPUSCULAR VOLUME 95 FL (80-99); MEAN PLATELET VOLUME 10.2 FL (7.4-10.4); MONOCYTES # (AUTO) 1.1 X 10^3 (0.0-1.0); MONOCYTES % (AUTO) 10 % (0-12); NEUTROPHILS # (AUTO) 7.7 X 10^3 (1.8-7.8); NEUTROPHILS % (AUTO) 65 % (42-75); PLATELET COUNT 233 10^3/uL (130-400); RED CELL DISTRIBUTION WIDTH 13.6 % (10.0-14.5); WHITE BLOOD COUNT 11.8 10^3/uL (4.3-11.0)
[2019-08-09 12:52] LABS: ALANINE AMINOTRANSFERASE 20 U/L (0-55); ALBUMIN 4.9 GM/DL (3.2-4.5); ALKALINE PHOSPHATASE 58 U/L (40-136); BUN/CREATININE RATIO 12; CALCIUM 9.9 MG/DL (8.5-10.1); CARBON DIOXIDE 20 MMOL/L (21-32); CHLORIDE 106 MMOL/L (98-107); GFR ESTIMATED 58; GLUCOSE 94 MG/DL (70-105); SODIUM 141 MMOL/L (135-145); TOTAL PROTEIN 7.6 GM/DL (6.4-8.2)
--- NOTE | 2019-08-09 13:06 | Diagnostic Imaging Report ---
CT ABD/PELVIS WO(KIDNEY STONE) TECHNIQUE: Unenhanced CT imaging of the abdomen and pelvis was performed. 2-D reformats are created and submitted for interpretation. Automatic exposure controls were utilized to optimize patient dose. INDICATION: Abdominal pain with elevated blood pressure. COMPARISON: 01/25/2019 FINDINGS: Evaluation of the abdominal viscera is mildly limited without contrast. Lower chest: Right lower lobe linear subsegmental atelectasis. Otherwise, lung bases are clear. Peritoneum: No free intraperitoneal air or fluid. Liver and biliary system: Unenhanced liver is normal. The gallbladder is normal. No biliary duct dilation. Spleen and Pancreas: Spleen is normal. Unenhanced pancreas is grossly normal. Adrenals: Normal. tract: Stable 4 mm nonobstructing stone in the lower pole of the left kidney. No right renal stones. No ureteral stones on either side. No solid renal mass or obstructive uropathy. Urinary bladder is partially distended without wall thickening. The prostate is normal in appearance of normal in size, unchanged. GI tract: Small sliding-type hiatal hernia is unchanged. There is mild circumferential wall thickening of distal esophagus that is stable in appearance. Stomach is partially filled with fluid and there is no wall thickening. No bowel obstruction. No pericolonic inflammatory changes. Normal appendix. Vasculature and Lymph nodes: Normal caliber aorta. Left common iliac vein stent remains mildly compressed by the right common iliac artery and is stable in appearance since prior exam. No abdominal or pelvic lymphadenopathy. Musculoskeletal: No concerning osseous lesion. IMPRESSION: 1. Stable 4 mm nonobstructing stone in the lower pole the left kidney. No obstructive uropathy or ureteral stones. 2. Small sliding hiatal hernia with mild wall thickening distal esophagus is stable in appearance since CT of 01/25/2019. This could be due to reflux esophagitis. Dictated by: Dictated on workstation # [id number]
--- NOTE | 2019-08-09 13:15 | Diagnostic Imaging Report ---
EXAMINATION: Supine abdomen at 1:02 p.m. INDICATION: Left-sided pain. FINDINGS: The CT abdomen/pelvis exam performed in conjunction with this study did note a 4 mm nonobstructive calculus in the lower pole of the left kidney. That finding is again evident. There is no other pathological calcification visualized. There is gas in both the large and small bowel in a nonspecific fashion. There is no sign of bowel obstruction. There is no mass, organomegaly, or pathological calcification evident aside from the calculus in the left kidney. The wire-mesh graft within the inferior vena cava seen on the CT abdomen/pelvis exam is again evident. The osseous structures are intact. There is a benign-appearing sclerotic focus in the left femoral neck. IMPRESSION: 1. The nonobstructive calculus within the inferior pole of the left kidney seen on the CT exam is again evident. 2. The bowel gas pattern is nonspecific. There is no acute abnormality evident. Dictated by: Dictated on workstation # [id number]
[2019-08-09 13:37] LABS: BILIRUBIN,URINE NEGATIVE (NEGATIVE); CLARITY,URINE CLEAR; COLOR,URINE YELLOW; GLUCOSE, URINE (UA) NEGATIVE (NEGATIVE); KETONES,URINE NEGATIVE (NEGATIVE); LEUKOCYTE ESTERASE ,URINE NEGATIVE (NEGATIVE); NITRITE,URINE NEGATIVE (NEGATIVE); PROTEIN,URINE 1+ (NEGATIVE)
[2019-08-09] MEDS ORDERED: ONDANSETRON 4 MG/2 ML (SDV) Z0FRAN IVP ONE (13:45)
[2019-08-09] MEDS ORDERED: NS IV 1000 ML 1,000 ML IV SCH (13:45)
[2019-08-09] MEDS ORDERED: KETOROLAC 30 MG/ML VIAL IVP ONE (13:45)
[2019-08-09 13:53] LABS: BACTERIA,URINE FEW /HPF; RBC,URINE RARE /HPF
[2019-08-09 13:56] LABS: AMPHETAMINE SCREEN, URINE NEGATIVE (NEGATIVE); BARBITURATE SCREEN URINE NEGATIVE (NEGATIVE); BENZODIAZEPINES SCREEN URINE NEGATIVE (NEGATIVE); CANNABINOID SCREEN, URINE POSITIVE (NEGATIVE); COCAINE SCREEN URINE NEGATIVE (NEGATIVE); METHADONE STAT NEGATIVE (NEGATIVE); METHAMPHETAMINE SCREEN URINE S NEGATIVE (NEGATIVE); OPIATE SCREEN URINE NEGATIVE (NEGATIVE); OXYCODONE STAT NEGATIVE (NEGATIVE); PROPOXYPHENE STAT NEGATIVE (NEGATIVE); TRICYCLIC ANTIDEPRESSANTS SCRE NEGATIVE (NEGATIVE)
--- OUTSIDE RECORDS SUMMARY | 2019-08-09 13:58 | XMS REPORT | Continuity of Care Document ---
Author Organization Unknown Address Unknown Phone Unavailable Allergies Active Description Code Type Severity Reaction Onset Reported/Identified Relationship to Patient Clinical Status Yes No Known Drug Allergies [id number] Drug Allergy Unknown N/A 11/03/2018 Medications There is no data. Problems Date Dx Coded Attending Type Code Diagnosis Diagnosed By 11/03/2018 PILAR DONATO, ELIANA aHro Ot F12.10 CANNABIS ABUSE, UNCOMPLICATED 11/03/2018 PILAR DONATO, ELIANA Haro Ot F17.210 NICOTINE DEPENDENCE, CIGARETTES, UNCOMPL 11/03/2018 ELIANA QUEZADA MD Ot F41.9 ANXIETY DISORDER, UNSPECIFIED 11/03/2018 ELIANA QUEZADA MD Ot F43.10 POST-TRAUMATIC STRESS DISORDER, UNSPECIF 11/03/2018 ELIANA QUEZADA MD Ot I10 ESSENTIAL (PRIMARY) HYPERTENSION 11/03/2018 PILAR DONATO, ELIANA Haro Ot I51.7 CARDIOMEGALY 11/03/2018 ELIANA QUEZADA MD Ot J44.9 CHRONIC OBSTRUCTIVE PULMONARY DISEASE, U 11/03/2018 PILAR DONATO, ELIANA Haro Ot R06.09 OTHER FORMS OF DYSPNEA 11/03/2018 ELIANA QUEZADA MD Ot R91.8 OTHER NONSPECIFIC ABNORMAL FINDING OF EMILY 11/03/2018 PILAR DONATO, ELIANA Haro Ot Z85.819 PRSNL HX OF WILLIE NEOPLM OF [facility] SITE LI 11/03/2018 ELIANA QUEZADA MD Ot Z87.01 PERSONAL HISTORY OF PNEUMONIA (RECURRENT 11/05/2018 ELIANA QUEZADA MD Ot F12.10 CANNABIS ABUSE, UNCOMPLICATED 11/05/2018 ELIANA QUEZADA MD Ot F17.210 NICOTINE DEPENDENCE, CIGARETTES, UNCOMPL 11/05/2018 ELIANA QUEZADA MD Ot F41.9 ANXIETY DISORDER, UNSPECIFIED 11/05/2018 PILAR DONATO, ELIANA Haro Ot F43.10 POST-TRAUMATIC STRESS DISORDER, UNSPECIF 11/05/2018 PILAR DONATO, ELIANA Haro Ot I10 ESSENTIAL (PRIMARY) HYPERTENSION 11/05/2018 PILAR DONATO, ELIANA Haro Ot I51.7 CARDIOMEGALY 11/05/2018 PILAR DONATO, ELIANA Haro Ot J44.9 CHRONIC OBSTRUCTIVE PULMONARY DISEASE, U 11/05/2018 PILAR DONATO, ELIANA Haro Ot R06.09 OTHER FORMS OF DYSPNEA 11/05/2018 ELIANA QUEZADA MD Ot R91.8 OTHER NONSPECIFIC ABNORMAL FINDING OF EMILY 11/05/2018 ELIANA UQEZADA MD Ot Z85.819 PRSNL HX OF WILLIE PRICE OF [facility] SITE LI 11/05/2018 ELIANA QUEZADA MD Ot Z87.01 PERSONAL HISTORY OF PNEUMONIA (RECURRENT 11/15/2018 ISRA, LYLE CASE MANAGER Ot F12.10 CANNABIS ABUSE, UNCOMPLICATED 11/15/2018 ISRA, LYLE CASE MANAGER Ot F17.210 NICOTINE DEPENDENCE, CIGARETTES, UNCOMPL 11/15/2018 ISRA, LYLE CASE MANAGER Ot F41.9 ANXIETY DISORDER, UNSPECIFIED 11/15/2018 ISRA, LYLE CASE MANAGER Ot F43.10 POST-TRAUMATIC STRESS DISORDER, UNSPECIF 11/15/2018 ISRA, LYLE CASE MANAGER Ot I10 ESSENTIAL (PRIMARY) HYPERTENSION 11/15/2018 ISRA, LYLE CASE MANAGER Ot J44.9 CHRONIC OBSTRUCTIVE PULMONARY DISEASE, U 11/15/2018 ISAR, LYLE CASE MANAGER Ot R06.02 SHORTNESS OF BREATH 11/15/2018 ISRA, LYLE CASE MANAGER Ot Z85.828 PERSONAL HISTORY OF OTHER MALIGNANT NEOP 11/15/2018 ISRA, LYLE CASE MANAGER Ot Z87.01 PERSONAL HISTORY OF PNEUMONIA (RECURRENT 11/15/2018 ISRA, LYLE CASE MANAGER Ot Z91.14 PATIENT'S OTHER NONCOMPLIANCE WITH MEDIC 2018 ISRA, LYLE CASE MANAGER Ot F12.10 CANNABIS ABUSE, UNCOMPLICATED 2018 ISRA, LYLE CASE MANAGER Ot F17.210 NICOTINE DEPENDENCE, CIGARETTES, UNCOMPL 2018 ISRA, LYLE CASE MANAGER Ot F32.9 MAJOR DEPRESSIVE DISORDER, SINGLE EPISOD 2018 ISRA, LYLE CASE MANAGER Ot F41.9 ANXIETY DISORDER, UNSPECIFIED 2018 ISRA, LYLE CASE MANAGER Ot I10 ESSENTIAL (PRIMARY) HYPERTENSION 2018 ISRA, LYLE CASE MANAGER Ot J44.9 CHRONIC OBSTRUCTIVE PULMONARY DISEASE, U 2018 ISRA, LYLE CASE MANAGER Ot R06.02 SHORTNESS OF BREATH 2018 ISRA, LYLE CASE MANAGER Ot Z85.828 PERSONAL HISTORY OF OTHER MALIGNANT NEOP 2018 ISRA, LYLE CASE MANAGER Ot Z87.01 PERSONAL HISTORY OF PNEUMONIA (RECURRENT 2018 ISRA, LYLE CASE MANAGER Ot Z91.14 PATIENT'S OTHER NONCOMPLIANCE WITH MEDIC 11/18/2018 ISRA, LYLE CASE MANAGER Ot F12.10 CANNABIS ABUSE, UNCOMPLICATED 11/18/2018 ISRA, LYLE CASE MANAGER Ot F17.210 NICOTINE DEPENDENCE, CIGARETTES, UNCOMPL 11/18/2018 ISRA, LYLE CASE MANAGER Ot F41.9 ANXIETY DISORDER, UNSPECIFIED 11/18/2018 ISRA, LYLE CASE MANAGER Ot F43.10 POST-TRAUMATIC STRESS DISORDER, UNSPECIF 11/18/2018 ISRA, LYLE CASE MANAGER Ot I10 ESSENTIAL (PRIMARY) HYPERTENSION 11/18/2018 ISRA, LYLE CASE MANAGER Ot J44.9 CHRONIC OBSTRUCTIVE PULMONARY DISEASE, U 11/18/2018 ISRA, LYLE CASE MANAGER Ot R06.02 SHORTNESS OF BREATH 11/18/2018 ISRA, LYLE CASE MANAGER Ot Z85.828 PERSONAL HISTORY OF OTHER MALIGNANT NEOP 11/18/2018 ISRA, LYLE CASE MANAGER Ot Z87.01 PERSONAL HISTORY OF PNEUMONIA (RECURRENT 11/18/2018 ISRA, LYLE CASE MANAGER Ot Z91.14 PATIENT'S OTHER NONCOMPLIANCE WITH MEDIC 01/08/2019 YANNI DONATO, BERENICE Morse Ot F17.210 NICOTINE DEPENDENCE, CIGARETTES, UNCOMPL 01/08/2019 YANNI DONATO, BERENICE Morse Ot F41. 9 ANXIETY DISORDER, UNSPECIFIED 01/08/2019 YANNI DONATO, BERENICE Morse Ot F43. 10 POST-TRAUMATIC STRESS DISORDER, UNSPECIF 01/08/2019 YANNI DONATO, BERENICE Morse Ot I10 ESSENTIAL (PRIMARY) HYPERTENSION 01/08/2019 YANNI DONATO, BERENICE Morse Ot I51. 7 CARDIOMEGALY 01/08/2019 YANNI DONATO, BERENICE Morse Ot I80. 3 PHLEBITIS AND THROMBOPHLEBITIS OF LOWER 01/08/2019 YANNI DONATO, BERENICE Morse Ot J44. 9 CHRONIC OBSTRUCTIVE PULMONARY DISEASE, U 01/08/2019 YANNI DONATO, BERENICE Morse Ot M79.662 PAIN IN LEFT LOWER LEG 01/08/2019 YANNI DONATO, BERENICE Morse Ot Z85.828 PERSONAL HISTORY OF OTHER MALIGNANT NEOP 01/08/2019 YANNI DONATO, BERENICE Morse Ot Z87. 01 PERSONAL HISTORY OF PNEUMONIA (RECURRENT 01/11/2019 YANNI DONATO, BERENICE Morse Ot F17.210 NICOTINE DEPENDENCE, CIGARETTES, UNCOMPL 01/11/2019 YANNI DONATO, BERENICE Morse Ot F41. 9 ANXIETY DISORDER, UNSPECIFIED 01/11/2019 BERENICE LIAO MD Ot F43. 10 POST-TRAUMATIC STRESS DISORDER, UNSPECIF 01/11/2019 BERENICE LIAO MD Ot I10 ESSENTIAL (PRIMARY) HYPERTENSION 01/11/2019 BERENICE LIAO MD Ot I51. 7 CARDIOMEGALY 01/11/2019 BERENICE LIAO MD Ot I80. 3 PHLEBITIS AND THROMBOPHLEBITIS OF LOWER 01/11/2019 BERENICE LIAO MD Ot J44. 9 CHRONIC OBSTRUCTIVE PULMONARY DISEASE, U 01/11/2019 YANNI DONATO, BERENICE Morse Ot M79.662 PAIN IN LEFT LOWER LEG 01/11/2019 YANNI DONATO, BERENICE Morse Ot Z85.828 PERSONAL HISTORY OF OTHER MALIGNANT NEOP 01/11/2019 BERENICE LIAO MD Ot Z87. 01 PERSONAL HISTORY OF PNEUMONIA (RECURRENT 01/25/2019 REGINALDO TIERNEY APRN Ot F17.210 NICOTINE DEPENDENCE, CIGARETTES, UNCOMPL 01/25/2019 REGINALDO TIERNEY APRN Ot F41 .9 ANXIETY DISORDER, UNSPECIFIED 01/25/2019 REGINALDO TIERNEY APRN Ot F43.10 POST-TRAUMATIC STRESS DISORDER, UNSPECIF 01/25/2019 REGINALDO TIERNEY APRN Ot I10 ESSENTIAL (PRIMARY) HYPERTENSION 01/25/2019 REGINALDO TIERNEY APRN Ot I51 .7 CARDIOMEGALY 01/25/2019 REGINALDO TIERNEY APRN Ot I82.412 ACUTE EMBOLISM AND THROMBOSIS OF LEFT FE 01/25/2019 REGINALDO TIERNEY APRN Ot J44 .9 CHRONIC OBSTRUCTIVE PULMONARY DISEASE, U 01/25/2019 REGINALDO TIERNEY APRN Ot R10.32 LEFT LOWER QUADRANT PAIN 01/25/2019 REGINALDO TIERNEY APRN Ot Z79.01 SKILLED NURSING (CURRENT) USE OF ANTICOAGULANT 01/25/2019 REGINALDO TIERNEY APRN Ot Z85.818 PRSNL HX OF MALIG NEOPLM OF SITE OF LIP, 01/25/2019 REGINALDO TIERNEY APRN Ot Z87.01 PERSONAL HISTORY OF PNEUMONIA (RECURRENT 02/01/2019 REGINALDO TIERNEY APRN Ot F17.210 NICOTINE DEPENDENCE, CIGARETTES, UNCOMPL 02/01/2019 REGINALDO TIERNEY APRN Ot F41 .9 ANXIETY DISORDER, UNSPECIFIED 02/01/2019 REGINALDO TIERNEY APRN Ot F43.10 POST-TRAUMATIC STRESS DISORDER, UNSPECIF 02/01/2019 REGINALDO TIERNEY APRN Ot I10 ESSENTIAL (PRIMARY) HYPERTENSION 02/01/2019 REGINALDO TIERNEY APRN Ot I51 .7 CARDIOMEGALY 02/01/2019 REGINALDO TIERNEY APRN Ot I82.412 ACUTE EMBOLISM AND THROMBOSIS OF LEFT FE 02/01/2019 REGINALDO TIERNEY APRN Ot J44 .9 CHRONIC OBSTRUCTIVE PULMONARY DISEASE, U 02/01/2019 REGINALDO TIERNEY APRN Ot R10.32 LEFT LOWER QUADRANT PAIN 02/01/2019 REGINALDO TIERNEY APRN Ot Z79.01 SKILLED NURSING (CURRENT) USE OF ANTICOAGULANT 02/01/2019 REGINALDO TIERNEY APRN Ot Z85.818 PRSNL HX OF MALIG NEOPLM OF SITE OF LIP, 02/01/2019 REGINALDO TIERNEY APRN Ot Z87.01 PERSONAL HISTORY OF PNEUMONIA (RECURRENT 02/03/2019 PILAR DONATO, ELIANA Haro Ot F17.210 NICOTINE DEPENDENCE, CIGARETTES, UNCOMPL 02/03/2019 PILAR DONATO, ELIANA Haro Ot F41.9 ANXIETY DISORDER, UNSPECIFIED 02/03/2019 ELIANA QUEZADA MD Ot F43.10 POST-TRAUMATIC STRESS DISORDER, UNSPECIF 02/03/2019 PILAR DONATO, ELIANA T Ot I10 ESSENTIAL (PRIMARY) HYPERTENSION 02/03/2019 PILAR DONATO, ELIANA Haro Ot I73.9 PERIPHERAL VASCULAR DISEASE, UNSPECIFIED 02/03/2019 PILAR DONATO, ELIANA Haro Ot I87.1 COMPRESSION OF VEIN 02/03/2019 ELIANA QUEZADA MD Ot J44.9 CHRONIC OBSTRUCTIVE PULMONARY DISEASE, U 02/03/2019 ELIANA QUEZADA MD Ot M79.662 PAIN IN LEFT LOWER LEG 02/03/2019 ELIANA QUEZADA MD Ot R20.2 PARESTHESIA OF SKIN 02/03/2019 ELIANA QUEZADA MD Ot Z79.01 SKILLED NURSING (CURRENT) USE OF ANTICOAGULANT 02/03/2019 ELIANA QUEZADA MD Ot Z85.828 PERSONAL HISTORY OF OTHER MALIGNANT NEOP 02/03/2019 ELIANA QUEZADA MD Ot Z86.718 PERSONAL HISTORY OF OTHER VENOUS THROMBO 02/07/2019 ELIANA QUEZADA MD Ot F17.210 NICOTINE DEPENDENCE, CIGARETTES, UNCOMPL 02/07/2019 ELIANA QUEZADA MD Ot F41.9 ANXIETY DISORDER, UNSPECIFIED 02/07/2019 ELIANA QUEZADA MD Ot F43.10 POST-TRAUMATIC STRESS DISORDER, UNSPECIF 02/07/2019 ELIANA QUEZADA MD Ot I10 ESSENTIAL (PRIMARY) HYPERTENSION 02/07/2019 ELIANA QUEZADA MD Ot I73.9 PERIPHERAL VASCULAR DISEASE, UNSPECIFIED 02/07/2019 ELIANA QUEZADA MD Ot I87.1 COMPRESSION OF VEIN 02/07/2019 ELIANA QUEZADA MD, Ot J44.9 CHRONIC OBSTRUCTIVE PULMONARY DISEASE, U 02/07/2019 ELIANA QUEZADA MD Ot M79.662 PAIN IN LEFT LOWER LEG 02/07/2019 ELIANA QUEZADA MD Ot R20.2 PARESTHESIA OF SKIN 02/07/2019 ELIANA QUEZADA MD Ot Z79.01 SKILLED NURSING (CURRENT) USE OF ANTICOAGULANT 02/07/2019 ELIANA QUEZADA MD Ot Z85.828 PERSONAL HISTORY OF OTHER MALIGNANT NEOP 02/07/2019 ELIANA QUEZADA MD Ot Z86.718 PERSONAL HISTORY OF OTHER VENOUS THROMBO 02/10/2019 ELIANA QUEZADA MD Ot F17.210 NICOTINE DEPENDENCE, CIGARETTES, UNCOMPL 02/10/2019 PILAR DONATO, ELIANA Haro Ot F41.9 ANXIETY DISORDER, UNSPECIFIED 02/10/2019 ELIANA QUEZADA MD Ot F43.10 POST-TRAUMATIC STRESS DISORDER, UNSPECIF 02/10/2019 ELIANA QUEZADA MD Ot I10 ESSENTIAL (PRIMARY) HYPERTENSION 02/10/2019 ELIANA QUEZADA MD Ot I73.9 PERIPHERAL VASCULAR DISEASE, UNSPECIFIED 02/10/2019 ELIANA QUEZADA MD Ot I87.1 COMPRESSION OF VEIN 02/10/2019 ELIANA QUEZADA MD Ot J44.9 CHRONIC OBSTRUCTIVE PULMONARY DISEASE, U 02/10/2019 ELIANA QUEZADA MD Ot M79.662 PAIN IN LEFT LOWER LEG 02/10/2019 ELIANA QUEZADA MD Ot R20.2 PARESTHESIA OF SKIN 02/10/2019 ELIANA QUEZADA MD Ot Z79.01 SKILLED NURSING (CURRENT) USE OF ANTICOAGULANT 02/10/2019 ELIANA QUEZADA MD Ot Z85.828 PERSONAL HISTORY OF OTHER MALIGNANT NEOP 02/10/2019 ELIANA QUEZADA MD Ot Z86.718 PERSONAL HISTORY OF OTHER VENOUS THROMBO 02/18/2019 BERENICE LIAO MD Ot F17.210 NICOTINE DEPENDENCE, CIGARETTES, UNCOMPL 02/18/2019 BERENICE LIAO MD Ot F41. 9 ANXIETY DISORDER, UNSPECIFIED 02/18/2019 BERENICE LIAO MD Ot F43. 10 POST-TRAUMATIC STRESS DISORDER, UNSPECIF 02/18/2019 BERENICE LIAO MD Ot I10 ESSENTIAL (PRIMARY) HYPERTENSION 02/18/2019 BERENICE LIAO MD Ot J44. 9 CHRONIC OBSTRUCTIVE PULMONARY DISEASE, U 02/18/2019 BERENICE LIAO MD Ot R07. 9 CHEST PAIN, UNSPECIFIED 02/18/2019 BERENICE LIAO MD Ot Z85.828 PERSONAL HISTORY OF OTHER MALIGNANT NEOP 02/18/2019 BERENICE LIAO MD Ot Z86.718 PERSONAL HISTORY OF OTHER VENOUS THROMBO 02/21/2019 BERENICE LIAO MD Ot F17.210 NICOTINE DEPENDENCE, CIGARETTES, UNCOMPL 02/21/2019 BERENICE LIAO MD Ot F41. 9 ANXIETY DISORDER, UNSPECIFIED 02/21/2019 BERENICE LIAO MD Ot F43. 10 POST-TRAUMATIC STRESS DISORDER, UNSPECIF 02/21/2019 BERENICE LIAO MD Ot I10 ESSENTIAL (PRIMARY) HYPERTENSION 02/21/2019 BERENICE LIAO MD Ot J44. 9 CHRONIC OBSTRUCTIVE PULMONARY DISEASE, U 02/21/2019 BERENICE LIAO MD Ot R07. 9 CHEST PAIN, UNSPECIFIED 02/21/2019 BERENICE LIAO MD Ot Z85.828 PERSONAL HISTORY OF OTHER MALIGNANT NEOP 02/21/2019 BERENICE LIAO MD Ot Z86.718 PERSONAL HISTORY OF OTHER VENOUS THROMBO 06/07/2019 RHODA DONATO FACC, ALI FACP CCDS Ot I10 ESSENTIAL (PRIMARY) HYPERTENSION 06/07/[address] [facility], ALI FACP CCDS Ot I42.0 DILATED CARDIOMYOPATHY 06/07/2019 [facility]A [facility]O [facility], ALI FACP CCDS Ot I70.8 ATHEROSCLEROSIS OF OTHER ARTERIES 06/07/2019 RHODA WHALEY, ALI FACP CCDS Ot Z72.0 TOBACCO USE 06/07/[address] [facility], ALI FACP CCDS Ot Z86.718 PERSONAL HISTORY OF OTHER VENOUS THROMBO 06/09/[address] [facility], ALI FACP CCDS Ot I10 ESSENTIAL (PRIMARY) HYPERTENSION 06/09/[address] [facility], ALI FACP CCDS Ot I42.0 DILATED CARDIOMYOPATHY 06/09/[address] [facility], ALI FACP CCDS Ot I70.8 ATHEROSCLEROSIS OF OTHER ARTERIES 06/09/[address] [facility], ALI FACP CCDS Ot Z72.0 TOBACCO USE 06/09/[address] [facility], ALI FACP CCDS Ot Z86.718 PERSONAL HISTORY OF OTHER VENOUS THROMBO 06/15/2019 MARY ALICE BRANDON MD Ot Z01.818 ENCOUNTER FOR OTHER PREPROCEDURAL EXAMIN 06/16/2019 RHODA DONATO FACC, ALI FACP CCDS Ot I10 ESSENTIAL (PRIMARY) HYPERTENSION 06/16/2019 RHODA DONATO FACC, ALI FACP CCDS Ot I42.0 DILATED CARDIOMYOPATHY 06/16/2019 RHODA WHALEYC, ALI FACP CCDS Ot I70.8 ATHEROSCLEROSIS OF OTHER ARTERIES 06/16/2019 RHODA DONATO FACC, LINO FACP CCDS Ot Z72.0 TOBACCO USE 06/16/2019 RHODA DONATO FACC, ALI FACP CCDS Ot Z86.718 PERSONAL HISTORY OF OTHER VENOUS THROMBO 06/16/2019 ROMA DONATO, MARY ALICE Spencer Ot Z01.818 ENCOUNTER FOR OTHER PREPROCEDURAL EXAMIN 06/16/2019 MARY ALICE BRANDON MD Ot Z01.818 ENCOUNTER FOR OTHER PREPROCEDURAL EXAMIN 06/17/2019 MARY ALICE BRANDON MD Ot H25.12 AGE-RELATED NUCLEAR CATARACT, LEFT EYE 06/17/2019 MARY ALICE BRANDON MD Ot I10 ESSENTIAL (PRIMARY) HYPERTENSION 06/17/2019 MARY ALICE BRANDON MD Ot I20 .9 ANGINA PECTORIS, UNSPECIFIED 06/17/2019 MARY ALICE BRANDON MD L Ot J45.909 UNSPECIFIED ASTHMA, UNCOMPLICATED 06/17/2019 MARY ALICE BRANDON MD Ot Z79.899 OTHER TRIMMER BUFFING WHEEL (CURRENT) DRUG THERAPY 06/17/2019 MARY ALICE BRANDON MD Ot Z01.818 ENCOUNTER FOR OTHER PREPROCEDURAL EXAMIN 06/21/2019 MARY ALICE BRANDON MD L Ot H25.12 AGE-RELATED NUCLEAR CATARACT, LEFT EYE 06/21/2019 MARY ALICE BRANDON MD Ot I10 ESSENTIAL (PRIMARY) HYPERTENSION 06/21/2019 MARY ALICE BRANDON MD L Ot I20 .9 ANGINA PECTORIS, UNSPECIFIED 06/21/2019 MARY ALICE BRANDON MD Ot J45.909 UNSPECIFIED ASTHMA, UNCOMPLICATED 06/21/2019 MARY ALICE BRANDON MD Ot Z79.899 OTHER SKILLED NURSING (CURRENT) DRUG THERAPY 06/22/2019 RHODA DONATO FACC, LINO FACP CCDS Ot I11.9 HYPERTENSIVE HEART DISEASE WITHOUT HEART 06/22/2019 RHODA DONATO FACC, ALI FACP CCDS Ot I42.0 DILATED CARDIOMYOPATHY 06/22/2019 RHODA DONATO FACC, ALI FACP CCDS Ot I73.9 PERIPHERAL VASCULAR DISEASE, UNSPECIFIED 06/22/2019 RHODA DONATO FACC, ALI FACP CCDS Ot R07.9 CHEST PAIN, UNSPECIFIED 06/22/2019 RHODA DONATO FACC, ALI FACP CCDS Ot Z86.718 PERSONAL HISTORY OF OTHER VENOUS THROMBO 06/23/[address] [facility], ALI FACP CCDS Ot I11.9 HYPERTENSIVE HEART DISEASE WITHOUT HEART 06/23/[address] [facility], ALI FACP CCDS Ot I35.1 NONRHEUMATIC AORTIC (VALVE) INSUFFICIENC 06/23/[address] [facility], ALI FACP CCDS Ot I42.0 DILATED CARDIOMYOPATHY 06/23/[address] [facility], ALI FACP CCDS Ot I73.9 PERIPHERAL VASCULAR DISEASE, UNSPECIFIED 06/23/[address] [facility], ALI FACP CCDS Ot Z86.718 PERSONAL HISTORY OF OTHER VENOUS THROMBO 07/01/2019 MARY ALICE BRANDON MD Ot H25.11 AGE-RELATED NUCLEAR CATARACT, RIGHT EYE 07/01/2019 MARY ALICE BRANDON MD Ot I10 ESSENTIAL (PRIMARY) HYPERTENSION 07/01/2019 MARY ALICE BRANDON MD Ot J45.909 UNSPECIFIED ASTHMA, UNCOMPLICATED 07/01/2019 MARY ALICE BRANDON MD Ot Z79.82 SKILLED NURSING (CURRENT) USE OF ASPIRIN 07/01/2019 MARY ALICE BRANDON MD Ot Z79.899 OTHER TRIMMER BUFFING WHEEL (CURRENT) DRUG THERAPY 07/04/[address] [facility], ALI FACP CCDS Ot I11.9 HYPERTENSIVE HEART DISEASE WITHOUT HEART 07/04/[address] [facility], ALI FACP CCDS Ot I42.0 DILATED CARDIOMYOPATHY 07/04/[address] [facility], ALI FACP CCDS Ot I73.9 PERIPHERAL VASCULAR DISEASE, UNSPECIFIED 07/04/[address] [facility], ALI FACP CCDS Ot R07.9 CHEST PAIN, UNSPECIFIED 07/04/[address] [facility], ALI FACP CCDS Ot Z86.718 PERSONAL HISTORY OF OTHER VENOUS THROMBO 07/05/2019 MARY ALICE BRANDON MD, Ot H25.11 AGE-RELATED NUCLEAR CATARACT, RIGHT EYE 07/05/2019 MARY ALICE BRANDON MD, Ot I10 ESSENTIAL (PRIMARY) HYPERTENSION 07/05/2019 MARY ALICE BRANDON MD, Ot J45.909 UNSPECIFIED ASTHMA, UNCOMPLICATED 07/05/2019 MARY ALICE BRANDON MD Ot Z79.82 TRIMMER BUFFING WHEEL (CURRENT) USE OF ASPIRIN 07/05/2019 MARY ALICE BRANDON MD, Ot Z79.899 OTHER SKILLED NURSING (CURRENT) DRUG THERAPY 07/07/2019 MARY ALICE BRANDON MD, Ot H25.11 AGE-RELATED NUCLEAR CATARACT, RIGHT EYE 07/07/2019 MARY ALICE BRANDON MD, Ot I10 ESSENTIAL (PRIMARY) HYPERTENSION 07/07/2019 MARY ALICE BRANDON MD, Ot J45.909 UNSPECIFIED ASTHMA, UNCOMPLICATED 07/07/2019 MARY ALICE BRANDON MD, Ot Z79.82 TRIMMER BUFFING WHEEL (CURRENT) USE OF ASPIRIN 07/07/2019 MARY ALICE BRANDON MD, Ot Z79.899 OTHER SKILLED NURSING (CURRENT) DRUG THERAPY Procedures There is no data. Results Test Result Range Complete blood count (CBC) with automate d white blood cell (WBC) differential - 11/03/18 19:20 Blood leukocytes automated count (number/volume) 8.2 10*3/uL 4.3-11.0 Blood erythrocytes automated count (number/volume) 4.19 10*6/uL 4.35-5.85 Venous blood hemoglobin measurement (mass/volume) 12.6 g/dL 13.3-17.7 Blood hematocrit (volume fraction) 39 % 40-54 Automated erythrocyte mean corpuscular volume 93 [ foz_us] 80-99 Automated erythrocyte mean corpuscular h emoglobin (mass per erythrocyte) 30 pg 25-34 Automated erythrocyte mean corpuscular h emoglobin concentration measurement (mass/volume) 33 g/dL 32-36 Automated erythrocyte distribution width ratio 16. 2 % 10.0- 14.5 Automated blood platelet count (count/volume) 258 10*3/uL 130-400 Automated blood platelet mean volume measurement 9.9 [foz_us] 7.4-10.4 Automated blood neutrophils/100 leukocytes 69 % 42-75 Automated blood lymphocytes/100 leukocytes 19 % 12-44 Blood monocytes/100 leukocytes 7 % 0-12 Automated blood eosinophils/100 leukocytes 4 % 0-10 Automated blood basophils/100 leukocytes 1 % 0-10 Blood neutrophils automated count (number/volume) 5.7 10*3 1.8-7.8 Blood lymphocytes automated count (number/volume) 1.6 10*3 1.0-4.0 Blood monocytes automated count (number/volume) 0. 6 10*3 0.0-1.0 Automated eosinophil count 0.3 10*3/uL 0 .0-0.3 Automated blood basophil count (count/volume) 0.1 10*3/uL 0.0-0.1 Comprehensive metabolic panel - 11/03/18 19:20 Serum or plasma sodium measurement (moles/volume) 142 mmol/L 135-145 Serum or plasma potassium measurement (moles/volume) 4.1 mmol/L 3.6-5.0 Serum or plasma chloride measurement (moles/volume) 108 mmol/L 98-107 Carbon dioxide 23 mmol/L 21-32 Serum or plasma anion gap determination (moles/volume) 11 mmol/L 5-14 Serum or plasma urea nitrogen measurement (mass/volume ) 18 mg/dL 7-18 Serum or plasma creatinine measurement (mass/volume) 1.38 mg/dL 0.60-1.30 Serum or plasma urea nitrogen/creatinine mass ratio 13 NRG Serum or plasma creatinine measurement w ith calculation of estimated glomerular filtration rate 55 NRG Serum or plasma glucose measurement (mass/volume) 130 mg/dL 70-105 Serum or plasma calcium measurement (mass/volume) 9.4 mg/dL 8.5-10.1 Serum or plasma total bilirubin measurement (mass/volu me) 1.2 mg/dL 0.1-1.0 Serum or plasma alkaline phosphatase kimberly surement (enzymatic activity/volume) 70 U/L 40-136 Serum or plasma aspartate aminotransfera se measurement (enzymatic activity/volume) 16 U/L 5-34 Serum or plasma alanine aminotransferase measurement (enzymatic activity/volume) 34 U/L 0-55 Serum or plasma protein measurement (mass/volume) 6.3 g/dL 6.4-8.2 Serum or plasma albumin measurement (mass/volume) 3.9 g/dL 3.2-4.5 CALCIUM CORRECTED 9.5 mg/dL 8.5-10.1 Serum or plasma troponin i.cardiac measu rement (mass/volume) - 11/03/18 19:20 Serum or plasma troponin i.cardiac measurement (mass/v olume) 0.052 ng/mL <0.028 Serum or plasma lithium measurement (mol es/volume) - 11/03/18 19:20 BNP level 34.1 pg/mL <100.0 Serum or plasma C reactive protein measu rement (mass/volume) - 11/03/18 19:20 Serum or plasma C reactive protein measurement (mass/v olume) 2.72 mg/dL 0.00-0.50 Fibrin D-dimer FEU measurement in platel et poor plasma (mass/volume) - 11/03/18 19:20 Fibrin D-dimer FEU measurement in platelet poor plasma (mass/volume) 1.71 ug/mL 0.00-0.49 Serum or plasma troponin i.cardiac measu rement (mass/volume) - 11/03/18 21:38 Serum or plasma troponin i.cardiac measurement (mass/v olume) 0.034 ng/mL <0.028 LIPID PANEL - 11/17/18 08:56 CHOLESTEROL, TOTAL 133 mg/dL <200 HDL CHOLESTEROL 30 mg/dL >40 TRIGLYCERIDES 106 mg/dL <150 LDL-CHOLESTEROL 83 mg/dL (calc) NRG CHOL/HDLC RATIO 4.4 (calc) <5.0 NON HDL CHOLESTEROL 103 mg/dL (calc) <13 0 CMP - 11/17/18 08:56 GLUCOSE 111 mg/dL 65-99 UREA NITROGEN (BUN) 23 mg/dL 7-25 CREATININE 1.34 mg/dL 0.70-1.33 eGFR NON-AFR. TRINIDADIAN 61 mL/min/1.73m2 > OR = 60 eGFR 71 mL/min/1.73m2 > OR = 60 BUN/CREATININE RATIO 17 (calc) 6-22 SODIUM 140 mmol/L 135-146 POTASSIUM 4.6 mmol/L 3.5-5.3 CHLORIDE 105 mmol/L 98-110 CARBON DIOXIDE 27 mmol/L 20-32 CALCIUM 9.7 mg/dL 8.6-10.3 PROTEIN, TOTAL 6.0 g/dL 6.1-8.1 ALBUMIN 4.0 g/dL 3.6-5.1 GLOBULIN 2.0 g/dL (calc) 1.9-3.7 ALBUMIN/GLOBULIN RATIO 2.0 (calc) 1.0-2. 5 BILIRUBIN, TOTAL 1.3 mg/dL 0.2-1.2 ALKALINE PHOSPHATASE 58 U/L 40-115 AST 15 U/L 10-35 ALT 22 U/L 9-46 CBC - 11/17/18 08:56 WHITE BLOOD CELL COUNT 9.5 Thousand/uL 3 .8-10.8 RED BLOOD CELL COUNT 4.53 Million/uL 4.2 0-5.80 HEMOGLOBIN 13.8 g/dL 13.2-17.1 HEMATOCRIT 42.7 % 38.5-50.0 MCV 94.3 fL 80.0-100.0 MCH 30.5 pg 27.0-33.0 MCHC 32.3 g/dL 32.0-36.0 RDW 15.0 % 11.0-15.0 PLATELET COUNT 287 Thousand/uL 140-400 MPV 10.2 fL 7.5-12.5 ABSOLUTE NEUTROPHILS 5805 cells/uL 1500- 7800 ABSOLUTE LYMPHOCYTES 2432 cells/uL 850-3 900 ABSOLUTE MONOCYTES 1017 cells/uL 200-950 ABSOLUTE EOSINOPHILS 171 cells/uL 15-500 ABSOLUTE BASOPHILS 76 cells/uL 0-200 NEUTROPHILS 61.1 % NRG LYMPHOCYTES 25.6 % NRG MONOCYTES 10.7 % NRG EOSINOPHILS 1.8 % NRG BASOPHILS 0.8 % NRG PSA - 11/17/18 08:56 PSA, TOTAL 0.9 ng/mL < OR = 4.0 TSH - 11/17/18 08:56 TSH 1.29 mIU/L 0.40-4.50 Complete blood count (CBC) with automate d white blood cell (WBC) differential - 01/08/19 16:05 Blood leukocytes automated count (number/volume) 10.9 10*3/uL 4.3-11.0 Blood erythrocytes automated count (number/volume) 6.00 10*6/uL 4.35-5.85 Venous blood hemoglobin measurement (mass/volume) 18.2 g/dL 13.3-17.7 Blood hematocrit (volume fraction) 54 % 40-54 Automated erythrocyte mean corpuscular volume 90 [ foz_us] 80-99 Automated erythrocyte mean corpuscular h emoglobin (mass per erythrocyte) 30 pg 25-34 Automated erythrocyte mean corpuscular h emoglobin concentration measurement (mass/volume) 34 g/dL 32-36 Automated erythrocyte distribution width ratio 14. 4 % 10.0- 14.5 Automated blood platelet count (count/volume) 180 10*3/uL 130-400 Automated blood platelet mean volume measurement 10.8 [foz_us] 7.4-10.4 Automated blood neutrophils/100 leukocytes 74 % 42-75 Automated blood lymphocytes/100 leukocytes 15 % 12-44 Blood monocytes/100 leukocytes 9 % 0-12 Automated blood eosinophils/100 leukocytes 2 % 0-10 Automated blood basophils/100 leukocytes 1 % 0-10 Blood neutrophils automated count (number/volume) 8.0 10*3 1.8-7.8 Blood lymphocytes automated count (number/volume) 1.6 10*3 1.0-4.0 Blood monocytes automated count (number/volume) 0. 9 10*3 0.0-1.0 Automated eosinophil count 0.2 10*3/uL 0 .0-0.3 Automated blood basophil count (count/volume) 0.1 10*3/uL 0.0-0.1 Comprehensive metabolic panel - 01/08/19 16:05 Serum or plasma sodium measurement (moles/volume) 139 mmol/L 135-145 Serum or plasma potassium measurement (moles/volume) 4.1 mmol/L 3.6-5.0 Serum or plasma chloride measurement (moles/volume) 105 mmol/L 98-107 Carbon dioxide 21 mmol/L 21-32 Serum or plasma anion gap determination (moles/volume) 13 mmol/L 5-14 Serum or plasma urea nitrogen measurement (mass/volume ) 20 mg/dL 7-18 Serum or plasma creatinine measurement (mass/volume) 1.32 mg/dL 0.60-1.30 Serum or plasma urea nitrogen/creatinine mass ratio 15 NRG Serum or plasma creatinine measurement w ith calculation of estimated glomerular filtration rate 57 NRG Serum or plasma glucose measurement (mass/volume) 156 mg/dL 70-105 Serum or plasma calcium measurement (mass/volume) 9.6 mg/dL 8.5-10.1 Serum or plasma total bilirubin measurement (mass/volu me) 0.7 mg/dL 0.1-1.0 Serum or plasma alkaline phosphatase kimberly surement (enzymatic activity/volume) 68 U/L 40-136 Serum or plasma aspartate aminotransfera se measurement (enzymatic activity/volume) 21 U/L 5-34 Serum or plasma alanine aminotransferase measurement (enzymatic activity/volume) 28 U/L 0-55 Serum or plasma protein measurement (mass/volume) 7.6 g/dL 6.4-8.2 Serum or plasma albumin measurement (mass/volume) 4.5 g/dL 3.2-4.5 CALCIUM CORRECTED 9.2 mg/dL 8.5-10.1 PT panel in platelet poor plasma by coag ulation assay - 01/08/19 16:05 Prothrombin time (PT) in platelet poor plasma by coagu lation assay 12.9 s 12.2-14.7 INR in platelet poor plasma or blood by coagulation as say 0.9 0.8-1.4 Complete blood count (CBC) with automate d white blood cell (WBC) differential - 01/25/19 18:46 Blood leukocytes automated count (number/volume) 8.0 10*3/uL 4.3-11.0 Blood erythrocytes automated count (number/volume) 5.93 10*6/uL 4.35-5.85 Venous blood hemoglobin measurement (mass/volume) 17.7 g/dL 13.3-17.7 Blood hematocrit (volume fraction) 52 % 40-54 Automated erythrocyte mean corpuscular volume 88 [ foz_us] 80-99 Automated erythrocyte mean corpuscular h emoglobin (mass per erythrocyte) 30 pg 25-34 Automated erythrocyte mean corpuscular h emoglobin concentration measurement (mass/volume) 34 g/dL 32-36 Automated erythrocyte distribution width ratio 14. 9 % 10.0- 14.5 Automated blood platelet count (count/volume) 262 10*3/uL 130-400 Automated blood platelet mean volume measurement 9.8 [foz_us] 7.4-10.4 Automated blood neutrophils/100 leukocytes 57 % 42-75 Automated blood lymphocytes/100 leukocytes 28 % 12-44 Blood monocytes/100 leukocytes 12 % 0-12 Automated blood eosinophils/100 leukocytes 2 % 0-10 Automated blood basophils/100 leukocytes 1 % 0-10 Blood neutrophils automated count (number/volume) 4.6 10*3 1.8-7.8 Blood lymphocytes automated count (number/volume) 2.2 10*3 1.0-4.0 Blood monocytes automated count (number/volume) 1. 0 10*3 0.0-1.0 Automated eosinophil count 0.2 10*3/uL 0 .0-0.3 Automated blood basophil count (count/volume) 0.1 10*3/uL 0.0-0.1 Whole blood basic metabolic panel - 08/10 18:46 Serum or plasma sodium measurement (moles/volume) 139 mmol/L 135-145 Serum or plasma potassium measurement (moles/volume) 4.3 mmol/L 3.6-5.0 Serum or plasma chloride measurement (moles/volume) 103 mmol/L 98-107 Carbon dioxide 26 mmol/L 21-32 Serum or plasma anion gap determination (moles/volume) 10 mmol/L 5-14 Serum or plasma urea nitrogen measurement (mass/volume ) 22 mg/dL 7-18 Serum or plasma creatinine measurement (mass/volume) 1.35 mg/dL 0.60-1.30 Serum or plasma urea nitrogen/creatinine mass ratio 16 NRG Serum or plasma creatinine measurement w ith calculation of estimated glomerular filtration rate 56 NRG Serum or plasma glucose measurement (mass/volume) 109 mg/dL 70-105 Serum or plasma calcium measurement (mass/volume) 9.8 mg/dL 8.5-10.1 Complete blood count (CBC) with automate d white blood cell (WBC) differential - 02/03/19 10:08 Blood leukocytes automated count (number/volume) 6.6 10*3/uL 4.3-11.0 Blood erythrocytes automated count (number/volume) 6.07 10*6/uL 4.35-5.85 Venous blood hemoglobin measurement (mass/volume) 17.9 g/dL 13.3-17.7 Blood hematocrit (volume fraction) 54 % 40-54 Automated erythrocyte mean corpuscular volume 88 [ foz_us] 80-99 Automated erythrocyte mean corpuscular h emoglobin (mass per erythrocyte) 29 pg 25-34 Automated erythrocyte mean corpuscular h emoglobin concentration measurement (mass/volume) 33 g/dL 32-36 Automated erythrocyte distribution width ratio 15. 2 % 10.0- 14.5 Automated blood platelet count (count/volume) 191 10*3/uL 130-400 Automated blood platelet mean volume measurement 10.1 [foz_us] 7.4-10.4 Automated blood neutrophils/100 leukocytes 60 % 42-75 Automated blood lymphocytes/100 leukocytes 27 % 12-44 Blood monocytes/100 leukocytes 10 % 0-12 Automated blood eosinophils/100 leukocytes 3 % 0-10 Automated blood basophils/100 leukocytes 1 % 0-10 Blood neutrophils automated count (number/volume) 4.0 10*3 1.8-7.8 Blood lymphocytes automated count (number/volume) 1.8 10*3 1.0-4.0 Blood monocytes automated count (number/volume) 0. 6 10*3 0.0-1.0 Automated eosinophil count 0.2 10*3/uL 0 .0-0.3 Automated blood basophil count (count/volume) 0.0 10*3/uL 0.0-0.1 Whole blood basic metabolic panel - 01/23 07/13 10:08 Serum or plasma sodium measurement (moles/volume) 136 mmol/L 135-145 Serum or plasma potassium measurement (moles/volume) 4.3 mmol/L 3.6-5.0 Serum or plasma chloride measurement (moles/volume) 104 mmol/L 98-107 Carbon dioxide 24 mmol/L 21-32 Serum or plasma anion gap determination (moles/volume) 8 mmol/L 5-14 Serum or plasma urea nitrogen measurement (mass/volume ) 15 mg/dL 7-18 Serum or plasma creatinine measurement (mass/volume) 1.21 mg/dL 0.60-1.30 Serum or plasma urea nitrogen/creatinine mass ratio 12 NRG Serum or plasma creatinine measurement w ith calculation of estimated glomerular filtration rate > NRG Serum or plasma glucose measurement (mass/volume) 91 mg/dL 70-105 Serum or plasma calcium measurement (mass/volume) 9.6 mg/dL 8.5-10.1 Complete blood count (CBC) with automate d white blood cell (WBC) differential - 02/18/19 09:44 Blood leukocytes automated count (number/volume) 10.0 10*3/uL 4.3-11.0 Blood erythrocytes automated count (number/volume) 5.71 10*6/uL 4.35-5.85 Venous blood hemoglobin measurement (mass/volume) 17.3 g/dL 13.3-17.7 Blood hematocrit (volume fraction) 50 % 40-54 Automated erythrocyte mean corpuscular volume 88 [ foz_us] 80-99 Automated erythrocyte mean corpuscular h emoglobin (mass per erythrocyte) 30 pg 25-34 Automated erythrocyte mean corpuscular h emoglobin concentration measurement (mass/volume) 35 g/dL 32-36 Automated erythrocyte distribution width ratio 15. 0 % 10.0- 14.5 Automated blood platelet count (count/volume) 185 10*3/uL 130-400 Automated blood platelet mean volume measurement 10.4 [foz_us] 7.4-10.4 Automated blood neutrophils/100 leukocytes 79 % 42-75 Automated blood lymphocytes/100 leukocytes 13 % 12-44 Blood monocytes/100 leukocytes 6 % 0-12 Automated blood eosinophils/100 leukocytes 2 % 0-10 Automated blood basophils/100 leukocytes 0 % 0-10 Blood neutrophils automated count (number/volume) 7.9 10*3 1.8-7.8 Blood lymphocytes automated count (number/volume) 1.3 10*3 1.0-4.0 Blood monocytes automated count (number/volume) 0. 6 10*3 0.0-1.0 Automated eosinophil count 0.2 10*3/uL 0 .0-0.3 Automated blood basophil count (count/volume) 0.0 10*3/uL 0.0-0.1 PT panel in platelet poor plasma by coag ulation assay - 02/18/19 09:44 Prothrombin time (PT) in platelet poor plasma by coagu lation assay 13.7 s 12.2-14.7 INR in platelet poor plasma or blood by coagulation as say 1.0 0.8-1.4 Activated partial thromboplastin time (a PTT) in platelet poor plasma bycoagulation assay - 02/18/19 09:44 Activated partial thromboplastin time (a PTT) in platelet poor plasma bycoagulation assay 32 s 24-35 Fibrin D-dimer FEU measurement in platel et poor plasma (mass/volume) - 02/18/19 09:44 Fibrin D-dimer FEU measurement in platelet poor plasma (mass/volume) 0.74 ug/mL 0.00-0.49 Comprehensive metabolic panel - 02/18/19 09:44 Serum or plasma sodium measurement (moles/volume) 140 mmol/L 135-145 Serum or plasma potassium measurement (moles/volume) 3.9 mmol/L 3.6-5.0 Serum or plasma chloride measurement (moles/volume) 106 mmol/L 98-107 Carbon dioxide 25 mmol/L 21-32 Serum or plasma anion gap determination (moles/volume) 9 mmol/L 5-14 Serum or plasma urea nitrogen measurement (mass/volume ) 17 mg/dL 7-18 Serum or plasma creatinine measurement (mass/volume) 1.23 mg/dL 0.60-1.30 Serum or plasma urea nitrogen/creatinine mass ratio 14 NRG Serum or plasma creatinine measurement w ith calculation of estimated glomerular filtration rate > NRG Serum or plasma glucose measurement (mass/volume) 107 mg/dL 70-105 Serum or plasma calcium measurement (mass/volume) 9.7 mg/dL 8.5-10.1 Serum or plasma total bilirubin measurement (mass/volu me) 0.8 mg/dL 0.1-1.0 Serum or plasma alkaline phosphatase kimberly surement (enzymatic activity/volume) 55 U/L 40-136 Serum or plasma aspartate aminotransfera se measurement (enzymatic activity/volume) 13 U/L 5-34 Serum or plasma alanine aminotransferase measurement (enzymatic activity/volume) 19 U/L 0-55 Serum or plasma protein measurement (mass/volume) 6.8 g/dL 6.4-8.2 Serum or plasma albumin measurement (mass/volume) 4.2 g/dL 3.2-4.5 CALCIUM CORRECTED 9.5 mg/dL 8.5-10.1 Magnesium - 02/18/19 09:44 Magnesium 1.9 mg/dL 1.6-2.4 Serum or plasma troponin i.cardiac measu rement (mass/volume) - 02/18/19 09:44 Serum or plasma troponin i.cardiac measurement (mass/v olume) < ng/mL <0.028 Myoglobin, serum - 02/18/19 09:44 Myoglobin, serum 54.3 ng/mL 10.0-92.0 Complete blood count (CBC) with automate d white blood cell (WBC) differential - 06/02/19 09:53 Blood leukocytes automated count (number/volume) 8.4 10*3/uL 4.3-11.0 Blood erythrocytes automated count (number/volume) 5.48 10*6/uL 4.35-5.85 Venous blood hemoglobin measurement (mass/volume) 17.9 g/dL 13.3-17.7 Blood hematocrit (volume fraction) 52 % 40-54 Automated erythrocyte mean corpuscular volume 94 [ foz_us] 80-99 Automated erythrocyte mean corpuscular h emoglobin (mass per erythrocyte) 33 pg 25-34 Automated erythrocyte mean corpuscular h emoglobin concentration measurement (mass/volume) 35 g/dL 32-36 Automated erythrocyte distribution width ratio 13. 5 % 10.0- 14.5 Automated blood platelet count (count/volume) 186 10*3/uL 130-400 Automated blood platelet mean volume measurement 10.2 [foz_us] 7.4-10.4 Automated blood neutrophils/100 leukocytes 63 % 42-75 Automated blood lymphocytes/100 leukocytes 23 % 12-44 Blood monocytes/100 leukocytes 11 % 0-12 Automated blood eosinophils/100 leukocytes 2 % 0-10 Automated blood basophils/100 leukocytes 1 % 0-10 Blood neutrophils automated count (number/volume) 5.3 10*3 1.8-7.8 Blood lymphocytes automated count (number/volume) 1.9 10*3 1.0-4.0 Blood monocytes automated count (number/volume) 0. 9 10*3 0.0-1.0 Automated eosinophil count 0.2 10*3/uL 0 .0-0.3 Automated blood basophil count (count/volume) 0.1 10*3/uL 0.0-0.1 Comprehensive metabolic panel - 06/02/19 09:53 Serum or plasma sodium measurement (moles/volume) 137 mmol/L 135-145 Serum or plasma potassium measurement (moles/volume) 3.9 mmol/L 3.6-5.0 Serum or plasma chloride measurement (moles/volume) 106 mmol/L 98-107 Carbon dioxide 20 mmol/L 21-32 Serum or plasma anion gap determination (moles/volume) 11 mmol/L 5-14 Serum or plasma urea nitrogen measurement (mass/volume ) 21 mg/dL 7-18 Serum or plasma creatinine measurement (mass/volume) 1.20 mg/dL 0.60-1.30 Serum or plasma urea nitrogen/creatinine mass ratio 18 NRG Serum or plasma creatinine measurement w ith calculation of estimated glomerular filtration rate > NRG Serum or plasma glucose measurement (mass/volume) 92 mg/dL 70-105 Serum or plasma calcium measurement (mass/volume) 9.7 mg/dL 8.5-10.1 Serum or plasma total bilirubin measurement (mass/volu me) 0.5 mg/dL 0.1-1.0 Serum or plasma alkaline phosphatase kimberly surement (enzymatic activity/volume) 58 U/L 40-136 Serum or plasma aspartate aminotransfera se measurement (enzymatic activity/volume) 18 U/L 5-34 Serum or plasma alanine aminotransferase measurement (enzymatic activity/volume) 27 U/L 0-55 Serum or plasma protein measurement (mass/volume) 7.2 g/dL 6.4-8.2 Serum or plasma albumin measurement (mass/volume) 4.5 g/dL 3.2-4.5 CALCIUM CORRECTED 9.3 mg/dL 8.5-10.1 Magnesium - 06/02/19 09:53 Magnesium 2.0 mg/dL 1.6-2.4 Lipid 1996 panel - 06/02/19 09:53 Serum or plasma triglyceride measurement (mass/volume) 152 mg/dL <150 Serum or plasma cholesterol measurement (mass/volume) 179 mg/dL < 200 Serum or plasma cholesterol in HDL measurement (mass/v olume) 28 mg/dL 40-60 Cholesterol in LDL [mass/volume] in serum or plasma by direct assay 144 mg/dL 1-129 Serum or plasma cholesterol in VLDL measurement (mass/ volume) 30 mg/dL 5-40 Encounters ACCT No. Visit Date/Time Discharge Status Pt. Type Provider Facility Loc./Unit Complaint [id number] 02/07/2019 14:00:00 02/07/2019 23:59: 59 CLS Outpatient ELIZABETH DEGROOT APRN [facility] [id number] 2018 08:20:00 Document Registration [id number] 08/02/2019 08:00:00 23:59:59 CLS Preadmit LINO DUONG MD, FACC, FACP CCDS [facility] CATH DILATED CM,ABN STRESS TEST,TOBACCO USE,HX OF DVT [id number] 07/01/2019 06:05:00 07:40:00 DIS Outpatient MARY ALICE BRANDON MD Via [facility] CATARACT RIGHT EYE [id number] 06/17/2019 06:54:00 09:05:00 DIS Outpatient MARY ALICE BRANDON MD [facility] SD CATARACT LEFT EYE [id number] 06/16/2019 09:15:00 10:39:00 DIS Outpatient MARY ALICE BRANDON MD [facility] PREOP CATARACT LEFT EYE [id number] 06/09/2019 13:39:00 23:59:59 CLS Outpatient LINO DUONG MD, FACC, FACP CC DS [facility] CARD HTN,HISTORY OF DVT [id number] 06/07/2019 12:18:00 23:59:59 CLS Outpatient RHODA DONATO FACC, LINO BRANTLEY CC DS [facility] CARD HTN,HX OF D VT,PAD [id number] 06/02/2019 09:40:00 23:59:59 CLS Outpatient RHODA DONATO FACC, LINO BRANTLEY CC DS [facility] LAB PAD [id number] 02/18/2019 09:32:00 12:28:00 DIS Emergency YANNI DONATO, BERENICE Morse [facility] ER CHEST PAIN;SWEATING [id number] 02/03/2019 06:54:00 12:29:00 DIS Emergency PILAR DONATO, ELIANA Haro [facility] ER PAIN IN LEFT LE G HIP,WEAKNESS [id number] 01/25/2019 18:02:00 20:57:00 DIS Emergency REGINALDO TIERNEY TRAVEL REGISTERED NURSE ONCOLOGY [facility] ER LEFT LEG PAIN [id number] 01/08/2019 15:34:00 18:10:00 DIS Emergency YANNI DONATO, BERENICE Morse [facility] ER L LEG PAIN,PURPLE,POSS BLOOD CLOT [id number] 12/23/2018 14:10:00 23:59:59 CLS Preadmit NATALIA SANTANA APRN [facility] RAD DYSPNEA [id number] 11/15/2018 11:51:00 13:04:00 DIS Emergency LYLE DHALIWAL CASE MANAGER [facility] ER SOA [id number] 11/03/2018 18:55:00 22:54:00 DIS Emergency PILAR DONATO, ELIANA Haro [facility] ER SOB [id number] 08/09/2019 12:16:[address] Emergency CRISTIANA LEWIS Via [facility] ER HIGH BP;HEART ISSUES
--- NOTE | 2019-08-09 14:11 | ED GI ---
General Chief Complaint: Cardiac/General Problems Stated Complaint: HIGH BP;HEART ISSUES Nursing Triage Note: PT AMBULATE TO ROOM 06 WITH C/O HYPERTENSION AND LEG PAIN. PT DENIES CHEST PAIN. PT STATES SOB BECAUSE HE WALKED 3 MILES TO GET TO ED. Sepsis Screen: No Definite Risk Source of Information: Patient Exam Limitations: No Limitations History of Present Illness Date Seen by Provider: Aug 09, 2019 Time Seen by Provider: 12:30 Initial Comments 53-year-old male who presents to the emergency room with complaints of left flank plain that radiates to his left groin area. He reports history of kidney stones with lithotripsy. He also complains of chronic left leg pain for the past 6 months. He is diaphoretic on arrival to the emergency room and is hypertensive due to walking 3 miles to get to the emergency room. He is very anxious and reports that he has PTSD from the and all of the news about the COVID19 is making him more anxious. She denies fevers or any Covid 19 symptoms. Timing/Duration: 1-2 Days Associated Symptoms: Back Pain, Nausea/Vomiting Allergies and Home Medications Allergies Coded Allergies: No Known Drug Allergies (Unverified , 11/03/18) Home Medications Albuterol Sulfate 1 Puff Puff, 2 PUFF IH Q4H PRN for WHEEZING, (Reported) 1 PUFF = 90 MCG Apixaban 5 Mg Tablet, 5 MG PO BID, (Reported) Aspirin 81 Mg Tablet.dr, 81 MG PO DAILY, (Reported) Carvedilol 12.5 Mg Tablet, 12.5 MG PO DAILY, (Reported) Lisinopril/Hydrochlorothiazide 1 Each Tablet, 1 EACH PO DAILY, (Reported) Lorazepam 0.5 Mg Tablet, 0.5 MG PO BID, (Reported) Sulfamethoxazole/Trimethoprim 1 Each Tablet, 1 EACH PO BID Prescribed by: CRISTIANA LEWIS on 08/09/19 1446 Tramadol HCl 50 Mg Tablet, 50 MG PO TID PRN for PAIN-MILD (1-4), (Reported) Patient Home Medication List Home Medication List Reviewed: Yes Past Wzgqmsw-Zvvsll-Djgqri Hx Patient Social History Alcohol Use: Denies Use Recreational Drug Use: Yes Drug of Choice: medical marijuana Smoking Status: Current Everyday Smoker Type Used: Cigarettes 2nd Hand Smoke Exposure: Yes Recent Foreign Travel: No Contact w/Someone Who Travel: No Recent Infectious Disease Expo: No Recent Hopitalizations: Yes (STENT L LOWER EXT) Physical Abuse: No Sexual Abuse: No Mistreated: No Fear: No Immunizations Up To Date Tetanus Booster (TDap): Unknown Seasonal Allergies Seasonal Allergies: Yes Past Medical History Surgeries: Yes (chest tube, 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) Orthopedic, Vascular Surgery Respiratory: Yes (copd) Pneumonia, COPD Cardiac: Yes (cardiomegaly) Deep Vein Thrombosis, Hypertension, Peripheral Vascular Neurological: No Genitourinary: No Gastrointestinal: No Musculoskeletal: Yes Arthritis, Chronic Back Pain Endocrine: No HEENT: No 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 oz. 108.522145ya; 38.00 BMI Method:Stated Progress/Results/Core Measures Results/Orders Lab Results Laboratory Tests Test 08/09/19 12:20 08/09/19 13:18 Range/Units White Blood Count 11.8 H 4.3-11.0 10^3/uL Red Blood Count 5.65 4.35-5.85 10^6/uL Hemoglobin 18.4 H 13.3-17.7 G/DL Hematocrit 53 40-54 % Mean Corpuscular Volume 95 80-99 FL Mean Corpuscular Hemoglobin 33 25-34 PG Mean Corpuscular Hemoglobin Concent 35 32-36 G/DL Red Cell Distribution Width 13.6 10.0-14.5 % Platelet Count 233 130-400 10^3/uL Mean Platelet Volume 10.2 7.4-10.4 FL Neutrophils (%) (Auto) 65 42-75 % Lymphocytes (%) (Auto) 23 12-44 % Monocytes (%) (Auto) 10 0-12 % Eosinophils (%) (Auto) 2 0-10 % Basophils (%) (Auto) 0 0-10 % Neutrophils # (Auto) 7.7 1.8-7.8 X 10^3 Lymphocytes # (Auto) 2.7 1.0-4.0 X 10^3 Monocytes # (Auto) 1.1 H 0.0-1.0 X 10^3 Eosinophils # (Auto) 0.2 0.0-0.3 10^3/uL Basophils # (Auto) 0.1 0.0-0.1 10^3/uL Sodium Level 141 135-145 MMOL/L Potassium Level 4.0 3.6-5.0 MMOL/L Chloride Level 106 98-107 MMOL/L Carbon Dioxide Level 20 L 21-32 MMOL/L Anion Gap 15 H 5-14 MMOL/L Blood Urea Nitrogen 15 7-18 MG/DL Creatinine 1.30 0.60-1.30 MG/DL Estimat Glomerular Filtration Rate 58 BUN/Creatinine Ratio 12 Glucose Level 94 70-105 MG/DL Calcium Level 9.9 8.5-10.1 MG/DL Corrected Calcium 8.5-10.1 MG/DL Total Bilirubin 1.0 0.1-1.0 MG/DL Aspartate Amino Transf (AST/SGOT) 16 5-34 U/L Alanine Aminotransferase (ALT/SGPT) 20 0-55 U/L Alkaline Phosphatase 58 40-136 U/L Total Protein 7.6 6.4-8.2 GM/DL Albumin 4.9 H 3.2-4.5 GM/DL Urine Color YELLOW Urine Clarity CLEAR Urine pH 8.0 5-9 Urine Specific [place] 1.020 1.016-1.022 Urine Protein 1+ H NEGATIVE Urine Glucose (UA) NEGATIVE NEGATIVE Urine Ketones NEGATIVE NEGATIVE Urine Nitrite NEGATIVE NEGATIVE Urine Bilirubin NEGATIVE NEGATIVE Urine Urobilinogen 4.0 < = 1.0 MG/DL Urine Leukocyte Esterase NEGATIVE NEGATIVE Urine RBC (Auto) NEGATIVE NEGATIVE Urine RBC RARE /HPF Urine WBC 2-5 /HPF Urine Crystals NONE /LPF Urine Bacteria FEW H /HPF Urine Casts NONE /LPF Urine Mucus SMALL H /LPF Urine Culture Indicated YES Urine Opiates Screen NEGATIVE NEGATIVE Urine Oxycodone Screen NEGATIVE NEGATIVE Urine Methadone Screen NEGATIVE NEGATIVE Urine Propoxyphene Screen NEGATIVE NEGATIVE Urine Barbiturates Screen NEGATIVE NEGATIVE Ur Tricyclic Antidepressants Screen NEGATIVE NEGATIVE Urine Phencyclidine Screen NEGATIVE NEGATIVE Urine Amphetamines Screen NEGATIVE NEGATIVE Urine Methamphetamines Screen NEGATIVE NEGATIVE Urine Benzodiazepines Screen NEGATIVE NEGATIVE Urine Cocaine Screen NEGATIVE NEGATIVE Urine Cannabinoids Screen POSITIVE H NEGATIVE My Orders Orders - BERNOT,CRISTIANA Comprehensive Metabolic Panel (08/09/19 12:32) Ua Culture If Indicated (08/09/19 12:32) Ed Iv/Invasive Line Start (08/09/19 12:32) Cbc With Automated Diff (08/09/19 12:32) Ct Abd/Pelvis Wo(Kidney Stone) (08/09/19 12:32) Abdomen/Kub 1view (08/09/19 12:32) Drug Screen Stat (Urine) (08/09/19 12:34) Ondansetron Injection (Zofran Injectio (08/09/19 13:45) Ketorolac Injection (Toradol Injection) (08/09/19 13:45) Ns Iv 1000 Ml (Sodium Chloride 0.9%) (08/09/19 13:45) Urine Culture (08/09/19 13:18) Medications Given in ED Current Medications Medications Dose Ordered Sig/Alejo Route Start Time Stop Time Status Last Admin Dose Admin Ketorolac Tromethamine 30 mg ONCE ONCE IVP 08/09/19 13:45 08/09/19 13:46 DC 08/09/19 13:40 30 MG Ondansetron HCl 4 mg ONCE ONCE IVP 08/09/19 13:45 08/09/19 13:46 DC 08/09/19 13:40 4 MG Vital Signs/I&O 08/09/19 08/09/19 12:19 15:05 Temp 36.6 Pulse 81 71 Resp 23 17 B/P (MAP) 174/127 (143) 148/91 Pulse Ox 98 O2 Delivery Room Air Room Air Blood Pressure Mean: 143 Departure Impression Primary Impression: Kidney stone Disposition: 01 HOME, SELF-CARE Condition: Stable/Unchanged Departure-Patient Inst. Decision time for Depature: 14:43 Referrals: [facility] (PCP) Primary Care Physician ELIZABETH DEGROOT (Family) Primary Care Physician Patient Instructions: Kidney Stones (DC) Add. Discharge Instructions: Strain all urine and if she should pass a kidney stone take it with you to your urology appointment. Call today to schedule an appointment time with Dr. Cantu. Take medications as directed. You may use ibuprofen and Tylenol as needed for pain relief. Return back to the emergency room for worsening symptoms or concerns as needed. All discharge instructions reviewed with patient and/or family. Voiced unde rstanding. Scripts Sulfamethoxazole/Trimethoprim (Bactrim Ds Tablet) 1 Each Tablet 1 EACH PO BID for 3 Days, #6 TAB Prov: CRISTIANA LEWIS 08/09/19 CRISTIANA LEWIS Aug 09, 2019 14:11
[2019-08-09] MEDS ORDERED: SULF1TAB35 PO (14:46)
[2019-08-09 15:05] VITALS: BP 148/91
== END 2019-08-09 15:05 | disposition home or self-care (01) ==
LOC: EDUNIT# 12:15 → ER 12:16
DX: N20.0 Calculus of kidney (principal); J44.9 Chronic obstructive pulmonary disease, unspecified; I10 Essential (primary) hypertension; F41.9 Anxiety disorder, unspecified; F17.210 Nicotine dependence, cigarettes, uncomplicated; Z85.828 Personal history of other malignant neoplasm of skin; Z86.718 Personal history of other venous thrombosis and embolism; Z79.01 Long term (current) use of anticoagulants; Z79.82 Long term (current) use of aspirin
CPT/HCPCS: 36415; 74018; 74176; 80053; 80306; 81000; 85025; 87088

== ENCOUNTER → 2020-01-03 | Outpatient (CLI) | payer MEDICAID ==
[~2020-01-03] MED LIST changes: +SULF1TAB35 PO
== END ==
LOC: RAD 09:58
PROVIDERS: ATTEND Psychiatry & Neurology Neurology
DX: Z53.9 Procedure and treatment not carried out, unspecified reason (principal); G90.522 Complex regional pain syndrome I of left lower limb; M54.16 Radiculopathy, lumbar region

== ENCOUNTER 2020-06-25 21:28 | Emergency (ER) | payer MEDICAID ==
[~2020-06-25] VITALS: Ht 172.7 cm; Wt 117.9 kg
[2020-06-25 22:08] LABS: BASOPHILS # (AUTO) 0.1 10^3/uL (0.0-0.1); BASOPHILS % (AUTO) 1 % (0-10); EOSINOPHILS # (AUTO) 0.2 10^3/uL (0.0-0.3); EOSINOPHILS % (AUTO) 2 % (0-10); HEMATOCRIT 53 % (40-54); HEMOGLOBIN 18.2 g/dL (13.3-17.7); LYMPHOCYTES # (AUTO) 2.6 10^3/uL (1.0-4.0); LYMPHOCYTES % (AUTO) 25 % (12-44); MEAN CORPUSCULAR HEMOGLOBIN 33 pg (25-34); MEAN CORPUSCULAR HGB CONC 34 g/dL (32-36); MEAN CORPUSCULAR VOLUME 95 fL (80-99); MEAN PLATELET VOLUME 10.2 fL (9.0-12.2); MONOCYTES # (AUTO) 1.1 10^3/uL (0.0-1.0); MONOCYTES % (AUTO) 10 % (0-12); NEUTROPHILS # (AUTO) 6.6 10^3/uL (1.8-7.8); NEUTROPHILS % (AUTO) 62 % (42-75); PLATELET COUNT 235 10^3/uL (130-400); WHITE BLOOD COUNT 10.6 10^3/uL (4.3-11.0)
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
[2020-06-25] MEDS ORDERED: fentaNYL INJECTION 100 MCG/2 ML AMP IVP ONE (22:15)
[2020-06-25 22:25] LABS: ERYTHROCYTE SEDIMENTATION RATE 1 MM/HR (0-30)
[2020-06-25 22:28] LABS: ALBUMIN 4.7 GM/DL (3.2-4.5); CHLORIDE 104 MMOL/L (98-107); POTASSIUM 3.8 MMOL/L (3.6-5.0); SODIUM 139 MMOL/L (135-145)
[2020-06-25 22:29] LABS: CALCIUM 9.8 MG/DL (8.5-10.1)
[2020-06-25 22:31] LABS: GLUCOSE 106 MG/DL (70-105); TOTAL PROTEIN 7.9 GM/DL (6.4-8.2)
[2020-06-25 22:32] LABS: BILIRUBIN,TOTAL 1.3 MG/DL (0.1-1.0); CARBON DIOXIDE 22 MMOL/L (21-32)
[2020-06-25 22:34] LABS: ALKALINE PHOSPHATASE 47 U/L (40-136); CREATININE SERUM 1.23 MG/DL (0.60-1.30); GFR ESTIMATED > 60
[2020-06-25 22:36] LABS: BUN/CREATININE RATIO 11
[2020-06-25 22:37] LABS: ALANINE AMINOTRANSFERASE 23 U/L (0-55); URIC ACID 9.5 MG/DL (2.6-7.2)
[2020-06-26] MEDS ORDERED: fentaNYL INJECTION 100 MCG/2 ML AMP IVP ONE
--- NOTE | 2020-06-26 00:02 | NUR ---
PT TO ROOM AFTER US AND BEGAN YELLING. TECH ENTERED ROOM AND PT WAS YELLING AT TECH WHILE USING PROFANITY. THIS RN ENTERED THE ROOM AND THE PT CONTINUED TO YELL AND STATE THAT HE WANTED HIS GIRLFRIEND IN THE ROOM. PT WAS INFORMED THAT HIS GIRLFRIEND WAS ALLOWED TO COME TO ROOM. PT WAS OFFERED A PHONE TO CALL HIS GIRLFRIEND AND PT STATES THAT HE HAS BEEN USING HIS PHONE AND HIS GIRLFRIEND HAS NOT ANSWERED OR RESPONDED TO TEXT MESSAGES. PT INFORMED THAT IF HE CONTACTS HIS GIRLFRIEND SHE WOULD BE ALLOWED TO COME TO PT ROOM. PT CONTINUED TO USE PROFANITY AND COMPLAIN THAT HE WAS TIRED OF WAITING. PT STATES "I'M DONE" AND TOLD THIS RN TO GET OUT OF THE PT ROOM.
[2020-06-26] MEDS ORDERED: COLCHICINE 0.6 MG (COLCRYS) TABLET PO ONE (00:15)
[2020-06-26] MEDS ORDERED: RX-TRAMADOL 50 MG (ULTRAM) TAB PPK#4 PO STA (00:45)
[2020-06-26] MEDS ORDERED: TRAM-42 PO (00:52)
[2020-06-26 00:58] VITALS: BP 129/76
--- NOTE | 2020-06-26 06:23 | Diagnostic Imaging Report ---
PROCEDURE: US right lower extremity venous. TECHNIQUE: Multiple real-time grayscale images were obtained over the right lower extremity in various projections. Additional spectral analysis and color Doppler duplex images were also obtained. INDICATION: Right lower extremity swelling and pain, popliteal artery aneurysm. COMPARISON: 02/18/2019 FINDINGS: Again seen is a popliteal artery aneurysm now containing moderate mural thrombus. The aneurysm has increased in size to 4 cm compared to the prior exam 2 cm. The adjacent visualized deep and superficial venous system of the right lower extremity is patent. There is no DVT. IMPRESSION: 1. No DVT identified. 2. Increasing popliteal artery aneurysm. Dictated by: Dictated on workstation # [id number]
--- NOTE | 2020-06-26 06:23 | Diagnostic Imaging Report ---
INDICATION: Knee pain COMPARISON: None FINDINGS: 3 views of the right knee demonstrate no fracture or dislocation. Minimal degenerative changes are seen in all 3 compartments. There is no joint effusion. IMPRESSION: Minimal degenerative joint disease without fracture Dictated by: Dictated on workstation # [id number]
--- NOTE | 2020-06-26 07:11 | Diagnostic Imaging Report ---
Reason for examination: Right popliteal pain, history of aneurysm. Right lower extremity arteries were evaluated with grayscale, color flow and spectral Doppler with waveforms. The common femoral, deep femoral, superficial femoral, popliteal and trifurcation vessels were all well visualized. Right lower extremity arteries show tri/biphasic waveforms with moderate atherosclerotic disease. No occlusion or high-grade stenosis. There is a 7.5 x 3.7 x 4 cm popliteal artery aneurysm. No evidence for rupture or complete thrombosis. Two-vessel runoff to the right foot. Impression: 1. Right popliteal artery aneurysm measuring 7.5 x 3.7 x 4 cm. No evidence for rupture. 2. Moderate atherosclerotic changes in the remaining right lower extremity arteries but no evidence for high-grade stenosis or occlusion. I agree with the preliminary teleradiology report. Dictated by: Dictated on workstation # [id number]
[2020-06-26] MEDS ORDERED: TRM50T PO (09:17)
== END 2020-06-26 00:58 | disposition home or self-care (01) ==
LOC: EDUNIT# 21:28 → ER 21:30
DX: I72.4 Aneurysm of artery of lower extremity (principal); E79.0 Hyperuricemia without signs of inflammatory arthritis and tophaceous disease; R20.0 Anesthesia of skin; I10 Essential (primary) hypertension; J44.9 Chronic obstructive pulmonary disease, unspecified; G89.29 Other chronic pain; M54.9 Dorsalgia, unspecified; F17.210 Nicotine dependence, cigarettes, uncomplicated; Z95.820 Peripheral vascular angioplasty status with implants and grafts; Z85.828 Personal history of other malignant neoplasm of skin; Z86.718 Personal history of other venous thrombosis and embolism; Z79.01 Long term (current) use of anticoagulants; Z79.82 Long term (current) use of aspirin; Z79.891 Long term (current) use of opiate analgesic
CPT/HCPCS: 36415; 73562; 80053; 84550; 85025; 85652; 86141; 93926

== ENCOUNTER 2020-11-13 07:07 | Day surgery (SDC) | payer MEDICAID ==
[~2020-11-13] VITALS: Ht 170 cm; Wt 126.8 kg
[2020-11-13] VITALS (7 sets, daily range): BP systolic 120–141; BP diastolic 65–97
[~2020-11-13 07:07] MED LIST changes: -LISI-556 PO; +LISI-729 PO; +TRAM-42 PO
--- NOTE | 2020-11-13 07:26 | ED GI ---
General Stated Complaint: FOOD BOLUS Source of Information: Patient Exam Limitations: No Limitations History of Present Illness Date Seen by Provider: Nov 13, 2020 Time Seen by Provider: 07:15 Initial Comments Patient reports the ER by private conveyance from home with chief complaint that he has a food embolus stuck in his throat. 1829 yesterday he was eating some chicken off the grill and says he got it stuck in his esophagus. He was unable to pass any fluids or swallow his secretions. He says he was working outside all day so he feels very dehydrated. He tried to just get it down on his own at home and he tried gagging himself so he could vomit all night. Finally this morning he thought it was gone so he tried to take his pills with some orange juice and said he could not get anything to pass down his esophagus and had to spit it right back out. He did have to have his esophagus dilated 5 to 10 years ago E[facility]ka although he does not member who did it. He is having mild nausea now but no significant pain. He has anxiety related to PTSD and normally takes lorazepam and has not been able to take that recently. He takes Eliquis and has a history of peripheral arterial disease known to Dr. Garcia. Last dose of Eliquis was 24 hours ago. Allergies and Home Medications Allergies Coded Allergies: No Known Drug Allergies (Unverified , 11/03/18) Home Medications Albuterol Sulfate 1 Puff Puff, 2 PUFF IH Q4H PRN for WHEEZING, (Reported) 1 PUFF = 90 MCG Apixaban 5 Mg Tablet, 5 MG PO BID, (Reported) Aspirin 81 Mg Tablet.dr, 81 MG PO DAILY, (Reported) Carvedilol 12.5 Mg Tablet, 12.5 MG PO DAILY, (Reported) Lisinopril/Hydrochlorothiazide 1 Each Tablet, 1 EACH PO DAILY, (Reported) Lorazepam 0.5 Mg Tablet, 0.5 MG PO BID, (Reported) Sulfamethoxazole/Trimethoprim 1 Each Tablet, 1 EACH PO BID Prescribed by: CRISTIANA LEWIS on 08/09/19 3008 Tramadol HCl 50 Mg Tablet, 50 MG PO TID PRN for PAIN-MILD (1-4), (Reported) Tramadol HCl 50 Mg Tablet, 50 MG PO Q6H PRN for PAIN Prescribed by: MOIRA TONEY on 06/26/20 0539 Patient Home Medication List Home Medication List Reviewed: Yes Review of Systems Review of Systems Constitutional: No chills, No diaphoresis EENTM: No Blurred Vision, No Double Vision Respiratory: Denies Cough, Denies Orthopnea Cardiovascular: Denies Chest Pain, Denies Lightheadedness Gastrointestinal: See HPI; Denies Constipated, Denies Diarrhea; Nausea Genitourinary: Denies Burning, Denies Discharge Musculoskeletal: No back pain, No joint pain All Other Systems Reviewed Negative Unless Noted: Yes Past Ijbszih-Mainxg-Bwibys Hx Patient Social History Alcohol Use: Denies Use Drug of Choice: marijuana Smoking Status: Current Everyday Smoker Type Used: Cigarettes 2nd Hand Smoke Exposure: Yes Recent Hopitalizations: Yes (STENT L LOWER EXT) Immunizations Up To Date Tetanus Booster (TDap): Unknown Seasonal Allergies Seasonal Allergies: Yes Past Medical History Surgeries: Yes (chest tube, 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) Orthopedic, Vascular Surgery Respiratory: Yes (copd) Pneumonia, COPD Cardiac: Yes (cardiomegaly, may Thurner syndrome) Deep Vein Thrombosis, Hypertension, Peripheral Vascular Neurological: No Genitourinary: No Gastrointestinal: No Musculoskeletal: Yes Arthritis, Chronic Back Pain Endocrine: No HEENT: No 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 oz. 108.888778yd; 39.00 BMI Method:Stated General Appearance: WD/WN, mild distress HEENT: PERRL/EOMI, pharynx normal Neck: full range of motion, normal inspection Respiratory: no respiratory distress, no accessory muscle use Cardiovascular: normal peripheral pulses, no edema Gastrointestinal: non tender, soft Extremities: normal inspection, normal capillary refill Neurologic/Psychiatric: alert, normal mood/affect, oriented x 3 Skin: normal color, warm/dry Progress/Results/Core Measures Results/Orders Lab Results Laboratory Tests Test 11/13/20 07:23 Range/Units White Blood Count 8.0 4.3-11.0 10^3/uL Red Blood Count 5.52 4.30-5.52 10^6/uL Hemoglobin 18.4 H 13.3-17.7 g/dL Hematocrit 54 40-54 % Mean Corpuscular Volume 98 80-99 fL Mean Corpuscular Hemoglobin 33 25-34 pg Mean Corpuscular Hemoglobin Concent 34 32-36 g/dL Red Cell Distribution Width 13.1 10.0-14.5 % Platelet Count 212 130-400 10^3/uL Mean Platelet Volume 9.9 9.0-12.2 fL Immature Granulocyte % (Auto) 0 % Neutrophils (%) (Auto) 63 42-75 % Lymphocytes (%) (Auto) 24 12-44 % Monocytes (%) (Auto) 10 0-12 % Eosinophils (%) (Auto) 2 0-10 % Basophils (%) (Auto) 1 0-10 % Neutrophils # (Auto) 5.0 1.8-7.8 10^3/uL Lymphocytes # (Auto) 1.9 1.0-4.0 10^3/uL Monocytes # (Auto) 0.8 0.0-1.0 10^3/uL Eosinophils # (Auto) 0.2 0.0-0.3 10^3/uL Basophils # (Auto) 0.1 0.0-0.1 10^3/uL Immature Granulocyte # (Auto) 0.0 0.0-0.1 10^3/uL Sodium Level 140 135-145 MMOL/L Potassium Level 4.1 3.6-5.0 MMOL/L Chloride Level 104 98-107 MMOL/L Glucose Level 115 H 70-105 MG/DL Calcium Level 9.5 8.5-10.1 MG/DL Corrected Calcium 8.5-10.1 MG/DL Total Protein 7.4 6.4-8.2 GM/DL Albumin 4.6 H 3.2-4.5 GM/DL My Orders Orders - OSKAR SANTIAGO Ondansetron Injection (Zofran Injectio (11/13/20 07:30) Ed Iv/Invasive Line Start (11/13/20 07:20) Ns Iv 1000 Ml (Sodium Chloride 0.9%) (11/13/20 07:30) Cbc With Automated Diff (11/13/20 07:20) Comprehensive Metabolic Panel (11/13/20 07:20) Pantoprazole Injection (Protonix Injecti (11/13/20 07:30) Lorazepam Injection (Ativan Injection) (11/13/20 07:30) Vital Signs/I&O 11/13/20 07:12 Temp 35.9 Pulse 85 Resp 18 B/P (MAP) 163/111 (128) Pulse Ox 97 O2 Delivery Room Air Progress Progress Note : Time: 07:27 Progress Note Spoke to Dr. Rangel and he is going to put him on his scopes today. Zofran for his nausea and lorazepam for his anxiety. 1 L of normal saline. Consults : Consulting Physician: VIRAL RANGEL DO Consults Notes 07: Dr. Rangel to the ER saw the patient and will take him to outpatient Endo. Departure Impression Primary Impression: Bolus impaction of digestive tract Disposition: 01 HOME, SELF-CARE Condition: Stable Departure-Patient Inst. Decision time for Depature: 07:27 Referrals: VIRAL RANGEL RICHARD A DO (PCP/Family) Primary Care Physician Patient Instructions: Food Obstruction OSKAR SANTIAGO Nov 13, 2020 07:26
[2020-11-13] MEDS ORDERED: ONDANSETRON 4 MG/2 ML (SDV) Z0FRAN IVP ONE (07:30)
[2020-11-13] MEDS ORDERED: NS IV 1000 ML 1,000 ML IV SCH (07:30)
[2020-11-13] MEDS ORDERED: PANTOPRAZOLE 40 MG (PROTONIX) VIAL IV ONE (07:30)
[2020-11-13] MEDS ORDERED: LORazepam INJ 2 MG/ML (ATIVAN) VIAL IVP ONE (07:30)
[2020-11-13 07:31] LABS: BASOPHILS # (AUTO) 0.1 10^3/uL (0.0-0.1); BASOPHILS % (AUTO) 1 % (0-10); EOSINOPHILS # (AUTO) 0.2 10^3/uL (0.0-0.3); EOSINOPHILS % (AUTO) 2 % (0-10); HEMATOCRIT 54 % (40-54); HEMOGLOBIN 18.4 g/dL (13.3-17.7); LYMPHOCYTES # (AUTO) 1.9 10^3/uL (1.0-4.0); LYMPHOCYTES % (AUTO) 24 % (12-44); MEAN CORPUSCULAR HEMOGLOBIN 33 pg (25-34); MEAN CORPUSCULAR HGB CONC 34 g/dL (32-36); MEAN CORPUSCULAR VOLUME 98 fL (80-99); MEAN PLATELET VOLUME 9.9 fL (9.0-12.2); MONOCYTES # (AUTO) 0.8 10^3/uL (0.0-1.0); MONOCYTES % (AUTO) 10 % (0-12); NEUTROPHILS % (AUTO) 63 % (42-75); PLATELET COUNT 212 10^3/uL (130-400)
[2020-11-13 07:41] LABS: ALBUMIN 4.6 GM/DL (3.2-4.5); CHLORIDE 104 MMOL/L (98-107); POTASSIUM 4.1 MMOL/L (3.6-5.0); SODIUM 140 MMOL/L (135-145)
[2020-11-13 07:42] LABS: CALCIUM 9.5 MG/DL (8.5-10.1)
[2020-11-13 07:43] LABS: GLUCOSE 115 MG/DL (70-105); TOTAL PROTEIN 7.4 GM/DL (6.4-8.2)
[2020-11-13 07:44] LABS: CARBON DIOXIDE 23 MMOL/L (21-32)
[2020-11-13 07:45] LABS: BILIRUBIN,TOTAL 1.1 MG/DL (0.1-1.0)
[2020-11-13 07:47] LABS: ALKALINE PHOSPHATASE 52 U/L (40-136); CREATININE SERUM 1.22 MG/DL (0.60-1.30); GFR ESTIMATED > 60
[2020-11-13 07:48] LABS: BUN/CREATININE RATIO 14
[2020-11-13 07:50] LABS: ALANINE AMINOTRANSFERASE 32 U/L (0-55)
--- NOTE | 2020-11-13 07:52 | History & Physical-Surgical ---
History of Present Illness History of Present Illness Reason for visit/HPI CC:Food bolus chicken last night. got stuck. been vomiting multiple times. Can't keep secretions down. Has occurred about 10 years ago and had to have stretched. Mild discomfort aching feeling epigastric area. No radiation. Nothing better or worse. Denies n/v fever sweats chills shortness of breath or chest pain. Date of Admission T Date Seen by a Provider: Nov 13, 2020 Time Seen by a Provider: 07:45 I consulted on this patient on 11/13/20 07:44 Attending Physician Admitting Physician Justus Mast DO Consult Allergies and Home Medications Allergies Coded Allergies: No Known Drug Allergies (Unverified , 11/03/18) Home Medications Albuterol Sulfate 1 Puff Puff, 2 PUFF IH Q4H PRN for WHEEZING, (Reported) 1 PUFF = 90 MCG Apixaban 5 Mg Tablet, 5 MG PO BID, (Reported) Aspirin 81 Mg Tablet.dr, 81 MG PO DAILY, (Reported) Carvedilol 12.5 Mg Tablet, 12.5 MG PO DAILY, (Reported) Lisinopril/Hydrochlorothiazide 1 Each Tablet, 1 EACH PO DAILY, (Reported) Lorazepam 0.5 Mg Tablet, 0.5 MG PO BID, (Reported) Sulfamethoxazole/Trimethoprim 1 Each Tablet, 1 EACH PO BID Prescribed by: CRISTIANA LEWIS on 08/09/19 1446 Tramadol HCl 50 Mg Tablet, 50 MG PO TID PRN for PAIN-MILD (1-4), (Reported) Tramadol HCl 50 Mg Tablet, 50 MG PO Q6H PRN for PAIN Prescribed by: MOIRA TONEY on 06/26/20 0918 Patient Home Medication List Home Medication List Reviewed: Yes Past Bjinltj-Efgkkw-Iyaoke Hx Patient Social History Drug of Choice: marijuana Smoking Status: Current Everyday Smoker Type Used: Cigarettes 2nd Hand Smoke Exposure: Yes Recent Hopitalizations: Yes (STENT L LOWER EXT) Immunizations Up To Date Tetanus Booster (TDap): Unknown Seasonal Allergies Seasonal Allergies: Yes Surgeries History of Surgeries: Yes (chest tube, 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) Surgeries: Orthopedic, Vascular Surgery Respiratory History of Respiratory Disorde: Yes (copd) Respiratory Disorders: Pneumonia, COPD Cardiovascular History of Cardiac Disorders: Yes (cardiomegaly, may Thurner syndrome) Cardiac Disorders: Deep Vein Thrombosis, Hypertension, Peripheral Vascular Neurological History of Neurological Disord: No Genitourinary History of Genitourinary Disor: No Gastrointestinal History of Gastrointestinal Di: No Musculoskeletal History of Musculoskeletal Dis: Yes Musculoskeletal Disorders: Arthritis, Chronic Back Pain Endocrine History of Endocrine Disorders: No HEENT History of HEENT Disorders: No Cancer 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) Cancer: Skin Psychosocial History of Psychiatric Problem: Yes Behavioral Health Disorders: Anxiety, PTSD Integumentary History of Skin or Integumenta: No Blood Transfusions History of Blood Disorders: No Reviewed Nursing Assessment Reviewed/Agree w Nursing PMH: Yes Family Medical History Significant Family History: No Pertinent Family Hx Review of Systems Constitutional: No chills, No diaphoresis EENTM: No blurred vision, No double vision Respiratory: No dyspnea on exertion, No short of breath Cardiovascular: No chest pain, No palpitations Gastrointestinal: abdominal pain, heartburn, nausea, vomiting Genitourinary: No decreased output, No discharge Musculoskeletal: No back pain, No joint pain Skin: No change in color, No change in hair/nails Psychiatric/Neurological: Denies Anxiety, Denies Depressed, Denies Emotional Problems All Other Systems Reviewed Negative Unless Noted: Yes (Negative excepted noted.) Physical Exam Vital Signs Vital Signs - First Documented 11/13/20 07:12 Temp 35.9 Pulse 85 Resp 18 B/P (MAP) 163/111 (128) Pulse Ox 97 O2 Delivery Room Air Capillary Refill : Less Than 3 Seconds Height, Weight, BMI Height: 5'8.00" Weight: 240lbs. oz. 108.314243bw; 43.00 BMI Method:Stated General Appearance: No Apparent Distress, WD/WN HEENT: PERRL/EOMI, Normal ENT Inspection Neck: Normal Inspection, Non Tender Respiratory: Chest Non Tender, No Accessory Muscle Use, No Respiratory Distress Cardiovascular: Regular Rate, Rhythm, No JVD Gastrointestinal: Soft, Tenderness (epigastric) Rectal: Deferred Back: No CVA Tenderness, No Vertebral Tenderness Extremity: Non Tender, No Calf Tenderness Neurologic/Psychiatric: Alert, Oriented x3, No Motor/Sensory Deficits, Normal Mood/Affect Skin: Normal Color, Warm/Dry Lymphatic: No Adenopathy Data Review Labs Laboratory Tests 11/13/20 07:23: White Blood Count 8.0, Red Blood Count 5.52, Hemoglobin 18.4H, Hematocrit 54, Mean Corpuscular Volume 98, Mean Corpuscular Hemoglobin 33, Mean Corpuscular Hemoglobin Concent 34, Red Cell Distribution Width 13.1, Platelet Count 212, Mean Platelet Volume 9.9, Immature Granulocyte % (Auto) 0, Neutrophils (%) (Auto) 63, Lymphocytes (%) (Auto) 24, Monocytes (%) (Auto) 10, Eosinophils (%) (Auto) 2, Basophils (%) (Auto) 1, Neutrophils # (Auto) 5.0, Lymphocytes # (Auto) 1.9, Monocytes # (Auto) 0.8, Eosinophils # (Auto) 0.2, Basophils # (Auto) 0.1, Immature Granulocyte # (Auto) 0.0, Sodium Level 140, Potassium Level 4.1, Chloride Level 104, Carbon Dioxide Level 23, Anion Gap 13, Glucose Level 115H, Calcium Level 9.5, Corrected Calcium , Total Protein 7.4, Albumin 4.6H Assessment/Plan Assessment/Plan Admission Diagonsis Food bolus esophageal obstruction nausea/vomiting correction anticoagulation Admission Status: Other (Same Day Surgery) Assessment/Plan Food bolus esophageal obstruction nausea/vomiting correction anticoagulation Discussed risks and benefits of egd and increased risks on anticoagulation he understands increased risk of bleeding. He wishes to proceed VIRAL RANGEL DO Nov 13, 2020 07:52
[2020-11-13] MEDS ORDERED: MIDAZOLAM 2 MG/2 ML (VERSED) VIAL ONE (08:38)
[2020-11-13] MEDS ORDERED: ONDANSETRON 4 MG/2 ML (SDV) Z0FRAN ONE (08:38)
[2020-11-13] MEDS ORDERED: fentaNYL INJ 100 MCG/2 ML AMP ONE (08:38)
[2020-11-13] MEDS ORDERED: proPOfol 200 MG/20 ML (DIPRIVAN) VIAL IV ONE (08:39)
[2020-11-13] MEDS ORDERED: SUCCINYLCHOLINE INJ 100 MG/5 ML SYR/VIAL ONE (08:39)
[2020-11-13] MEDS ORDERED: LACTATED RINGERS 1,000 ML IV ONE (09:07)
--- NOTE | 2020-11-13 09:24 | Progress Note-Post Operative ---
Post-Operative Progess Note Surgeon (s)/Stack Supervisor (s) Surgeon VIRAL RANGEL DO Stack Supervisor: na Pre-Operative Diagnosis esophageal food bolus Post-Operative Diagnosis esophageal food bolus distal esophageal stricture Procedure & Operative Findings Date of Procedure 11/13/20 Procedure Performed/Findings esophagoscopy with removal of food bolus Anesthesia Type general Estimated Blood Loss Estimated blood loss (mL): scant Specimens/Packing Specimens Removed na VIRAL RANGEL DO Nov 13, 2020 09:24
[2020-11-13] MEDS ORDERED: PANT40TA2 PO (09:25)
[2020-11-13] MEDS ORDERED: SUCR1TAB36 PO (09:25)
--- NOTE | 2020-11-13 09:26 | Discharge Inst-Simple/Standard ---
Discharge Inst-Standard Discharge Medications New, Converted or Re-Newed RX: Transmitted to Pharmacy Patient Instructions/Follow Up Plan of Care/Instructions/FU: See Dr. Chun tomorrow for follow up. Activity as Tolerated: Yes Discharge Diet: Liquid Diet VIRAL CHUN DO Nov 13, 2020 09:26
[2020-11-13] MEDS ORDERED: ONDANSETRON 4 MG/2 ML (SDV) Z0FRAN IVP PRN (09:45)
[2020-11-13] MEDS ORDERED: HYDROmorphone 2 MG/ML VIAL (DILAUDID) IV ONE (09:45)
--- NOTE | 2020-11-13 13:26 | OPERATIVE REPORT ---
DATE OF SERVICE: 11/13/2020 PREOPERATIVE DIAGNOSIS: Esophageal obstruction from food bolus. POSTOPERATIVE DIAGNOSIS: Esophageal food bolus causing obstruction and distal esophageal stricture. PROCEDURE PERFORMED: Esophagoscopy with removal of food bolus. SURGEON: Viral Chun DO. ANESTHESIA: General. ESTIMATED BLOOD LOSS: Scant. COMPLICATIONS: None. INDICATIONS FOR PROCEDURE: The patient is a 54-year-old male on anticoagulation. He presented to the Emergency Department with nausea and vomiting and food bolus. The patient was eating chicken last night about 6:30 p.m. and felt to get lodge. He has been throwing up since. Unable to keep secretions down. The patient understands risks and benefits of the procedure and due to him being on anticoagulation, he wishes to proceed. Consent was signed in the chart. DESCRIPTION OF PROCEDURE: The patient was taken to the endoscopy suite. General anesthesia was provided with endotracheal intubation. A timeout was performed. Scope was inserted in mouth, down the esophagus, significant amount of secretions were present, which were then suctioned. A large food bolus was encountered. A Tapia Net was then used to get around it and remove it. This was removed. Scope was then reinserted in the mouth, down the esophagus to the distal portion, which had stricture and inflammatory changes and some scant bleeding present. At this time, the scope could not be passed through this area. Therefore, we elected to stop the procedure at that time and scope was then slowly retracted until completely removed, noting no other pathology. RECOMMENDATIONS: The patient will be started on Protonix and Carafate, instructed to make . He will need to have a repeat endoscopy with dilatation and possible biopsy. This was not done this time due to the risk of bleeding and there already being scant bleeding. The patient will be instructed to stay on a liquid diet. We will need to get the patient to hold anticoagulation for repeat endoscopy. Job ID: [id number] DocumentID: [id number] Dictated Date: 11/13/2020 09:30:39 Dean Date: 11/13/2020 13:24:34 Dictated By: VIRAL CHUN DO
--- NOTE | 2020-11-13 14:12 | Anesthesia-General Post-Op ---
General Patient Condition Mental Status/LOC: Same as Preop Cardiovascular: Satisfactory Nausea/Vomiting: Absent Respiratory: Satisfactory Pain: Controlled Complications: Absent Post Op Complications Complications None Follow Up Care/Instructions Patient Instructions None needed. Anesthesia/Patient Condition Patient Condition Patient is doing well, no complaints, stable vital signs, no apparent adverse anesthesia problems. No complications reported per nursing. D/C home per [facility] Criteria: Yes SHOBHA CRUM CRNA Nov 13, 2020 14:12
== END 2020-11-13 10:35 | disposition home or self-care (01) ==
LOC: EDUNIT# 07:07 → ER 07:08 → ENDO 08:00 → SDC 10:35
PROVIDERS: ATTEND Surgery
DX: T18.128A Food in esophagus causing other injury, initial encounter (principal); K22.2 Esophageal obstruction; J44.9 Chronic obstructive pulmonary disease, unspecified; I10 Essential (primary) hypertension; M19.90 Unspecified osteoarthritis, unspecified site; G89.29 Other chronic pain; M54.9 Dorsalgia, unspecified; F41.9 Anxiety disorder, unspecified; F43.10 Post-traumatic stress disorder, unspecified; F17.210 Nicotine dependence, cigarettes, uncomplicated; Z79.51 Long term (current) use of inhaled steroids; Z79.82 Long term (current) use of aspirin; Z79.899 Other long term (current) drug therapy
CPT/HCPCS: 36415; 80053; 85025

== ENCOUNTER 2021-01-25 05:28 | Outpatient (RCR) | payer MEDICAID ==
[~2021-01-25] VITALS: Ht 170.2 cm; Wt 127.9 kg
[~2021-01-25 05:28] MED LIST changes: +ALB0.5V INH; +PANT40TA2 PO; +PREG75CA75 PO; +SUCR1TAB36 PO; -SULF1TAB35 PO; +SULF1TAB38 PO
== END 2021-03-18 | disposition home or self-care (01) ==
LOC: PREOP 05:28
PROVIDERS: ATTEND Surgery
DX: Z01.818 Encounter for other preprocedural examination (principal)